=== PATIENT | male | born 1955 | race Caucasian/White ===

== ENCOUNTER 2024-03-04 08:09 | Outpatient (CLI) | payer MEDICARE, SELFPAY ==
[2024-03-06 08:54] LABS: Pancreatic Elastase, Fecal 670 (>200)
== END 2024-03-04 23:59 | disposition home or self-care (01) ==
LOC: LAB 08:11
PROVIDERS: PCP Family Medicine; Visit Provider Internal Medicine Gastroenterology
DX: R19.4 Change in bowel habit (principal); R14.0 Abdominal distension (gaseous); R10.84 Generalized abdominal pain
CPT/HCPCS: 82656

== ENCOUNTER 2024-03-15 09:14 | Outpatient (CLI) | payer MEDICARE, SELFPAY ==
--- NOTE | 2024-03-15 09:27 | CT_ITS ---
FINAL REPORT TECHNIQUE: Axial CT images of the abdomen and pelvis were obtained before and after the administration of IV contrast. This study was performed with techniques to keep radiation doses as low as reasonably achievable (ALARA). Individualized dose reduction techniques using automated exposure control or adjustment of mA and/or kV according to the patient's size were employed. CLINICAL HISTORY: .HERNIA COMPARISON: None FINDINGS: Abdomen: There is a 2 mm nodule in the left lower lobe, best seen on image #6, most likely benign. There is a 3 mm right lower lobe nodule, best seen on image #11, also most likely benign. The heart is normal in size. There is mild fatty infiltration of the liver without evidence of biliary ductal dilatation. . The spleen is unremarkable. No adrenal masses present. The pancreas has an unremarkable appearance. There are several nonobstructing right renal stones present measuring up to 3 mm in size each. The aorta is normal in caliber. Mild vascular calcifications are present. There is no free fluid or adenopathy. No mass or abnormal fluid collection is seen. Precontrast images demonstrate no evidence of nephrolithiasis Pelvis: The appendix is not well visualized. Bilateral hip arthroplasties are noted. There is dystrophic calcification anterior to the left hip. Bilateral pars defects are noted in the lumbar spine, with L5-S1 grade 1 spondylolisthesis and severe bilateral neural foraminal narrowing. Possible postoperative change is present at the level of the umbilicus, but no cristofer hernia is identified. There is a left inguinal hernia present containing fat. The urinary bladder is unremarkable. No inflammatory process is seen. There is no evidence of mass or adenopathy. There is no evidence of bowel obstruction. IMPRESSION: Several nonobstructing less than 3 mm in size right renal stones are noted. Lumbar degenerative change is noted. No acute intra-abdominal or intrapelvic abnormality is identified. Reviewed, Interpreted and Dictated by Ángel Cochran III, MD Transcribed by Demetrice Doty Authenticated and [facility]
[2024-03-15 09:47] LABS: Blood Urea Nitrogen 11 mg/dl (9-20); Estimated Glomerular Filt Rate 96 ml/min (>60); GFR (African American) 116 ML/MIN (>60)
[2024-03-15] MEDS: IOPAMIDOL-370 (76%);100ML BOTTLE 75 ML IV (10:31)
[2024-03-15] MEDS: SODIUM CHLORIDE 0.9% 10ML SYR (RAD ONLY) 10 ML IV (10:31)
== END 2024-03-15 23:59 | disposition home or self-care (01) ==
PROVIDERS: PCP Family Medicine; Visit Provider Internal Medicine Gastroenterology
DX: R10.84 Generalized abdominal pain (principal); R14.0 Abdominal distension (gaseous); R19.4 Change in bowel habit
CPT/HCPCS: 36415; 74178; 82565; 84520; Q9967

== ENCOUNTER 2024-03-19 13:28 | Outpatient (CLI) | payer MEDICARE, SELFPAY ==
--- OUTSIDE RECORDS SUMMARY | 2024-03-19 13:30 | XMS_ITS | Clinical Summary ---
Author Organization Healthcare Address [address] [place] [address] Care Team Providers Care Broomcorn Scraper Name Role Phone Dahlia Crane MD Primary Care Provider [phone] Allergies Active Allergy Reactions Criticality Noted Date Comments Metoclopramide Other - please docum ent in the comment field Low 04/11/2012 made me nervous Medications olmesartan (Benicar) 20 MG tabletIndications: Essential (primary) hypertension Take 1 tablet (20 mg) by mouth 1 (one) time each day. 09/06/19 24 Active Additional Information Patient not taking.Reported on 10/26/2023 omeprazole (PriLOSEC) [address] capsuleIndications :Gastroesophageal reflux disease without esophagitis Take 1 capsule (40 mg) by mouth 1 (one) time each day. Do not crush or chew. 90 capsule 11/09/19 24 Active FLUoxetine (PROzac) 20 MG capsuleIndications :Major depressive disorder, recurrent, moderate (CMS/HCC) Take 1 capsule (20 mg) by mouth 1 (one) time each day. 90 capsule 1 11/09/19 24 Active atorvastatin (Lipitor) 10 MG tabletIndications: Hyperlipidemia, unspecified hyperlipidemia type Take 1 tablet (10 mg) by mouth 1 (one) time each day. 90 tablet 3 11/20/19 24 025 Active Active Problems Problem Noted Date Diagnosed Date Essential (primary) hypertension 10/02/2020 Anxiety, generalized 07/08/2020 Osteoarthritis of right hip 03/02/2020 Obesity (BMI 30-39.9) 03/05/2018 Arthritis 07/26/2014 Osteoarthritis of knee 07/26/2014 Encounters Date Type Department Care Team Description 02/27/2024 Telephone [facility] [address] [place] [address] Dahlia Crane MD HCN Clinical Concern/Question 02/16/2024 7:40 AM EDT Office Visit [facility] [address] [place] [address] Kaylan Kee, RIGHT OF WAY SUPERVISOR, DNP Generalized abdominal cramping; Diarrhea, unspecified type; Flank pain 02/16/2024 Travel 02/02/2024 Refill [facility] [address] [place] [address] Dahlia Crane MD Gastroesophageal reflux disease without esophagitis 02/01/2024 Telephone [facility] [address] [place] [address] Tequila Kay, PharmD from Last 3 Months Immunizations Name Administration Dates Next Due Hep A, Adult 02/06/2018 Influenza, Unspecified 02/06/2018 Influenza, injectable, quadrivalent 12/31/2019 Influenza, injectable, quadrivalent, preservativ e free 02/15/2017,02/04/2016 Pneumococcal Conjugate PCV 13 12/10/2019 Zoster, Recombinant 04/28/2020 Social History Tobacco Use Types Packs/Day Years Used Date Smoking Tobacco: Never Smokeless Tobacco: Never Humiliation, Afraid, Rape, and Kick questionnair e Answer Date Recorded Within the last year, have y ou been afraid of your partner or ex-partner? No 10/26/2023 Within the last year, have y ou been humiliated or emotionally abused in other ways by your partner or ex-partner? No Within the last year, have y ou been kicked, hit, slapped, or otherwise physically hurt by your partner or ex-partner? No 10/26/2023 Within the last year, have y ou been raped or forced to have any kind of sexual activity by your partner or ex-partner? No 10/26/2023 Social Connection and Isolat ion Panel [NHANES] Answer Date Recorded In a typical week, how many times do you talk on the phone with family, friends, or neighbors? More than three times a week 10/26/2023 How often do you get togethe r with friends or relatives? Twice a week 10/26/2023 How often do you attend chur ch or sikh services? More than 4 times per year 10/26/2023 Do you belong to any clubs o r organizations such as catholic groups, unions, fraternal or athletic groups, or school groups? No 10/26/2023 How often do you attend meet ings of the clubs or organizations you belong to? Never 10/26/2023 Are you , , di vorced, , never , or living with a partner? Never 10/26/2023 AUDIT-C Answer Date Recorded Q1: How often do you have a drink containing alc ohol? Monthly or less 10/26/2023 Q2: How many drinks containi ng alcohol do you have on a typical day when you are drinking? 1 or 2 10/26/2023 Q3: How often do you have si x or more drinks on one occasion? Never 10/26/2023 PHQ-2 Answer Date Recorded Patient Health Questionnaire-2 Score 1 02/16/2024 [facility] - Occupational Stress Questionnaire Answer Date Recorded Do you feel stress - tense, restless, nervous, or anxious, or unable to sleep at night because your mind is troubled all the time - these days? Not at all 10/26/2023 Exercise Vital Sign Answer Date Recorde d On average, how many days pe r week do you engage in moderate to strenuous exercise (like a brisk walk)? 4 days 10/26/2023 On average, how many minutes do you engage in exercise at this level? 30 min 10/26/2023 Hunger Vital Sign Answer Date Recorded Within the past 12 months, y ou worried that your food would run out before you got the money to buy more. Never true 10/26/19 24 Within the past 12 months, t he food you bought just didn't last and you didn't have money to get more. Never true 10/26/2023 PRAPARE - Transportation Answer Date Re corded In the past 12 months, has l ack of transportation kept you from medical appointments or from getting medications? No 09/30 In the past 12 months, has l ack of transportation kept you from meetings, work, or from getting things needed for daily living? No 10/26/2023 Housing Stability Vital Sign Answer Fredy e Recorded In the last 12 months, was t here a time when you were not able to pay the mortgage or rent on time? No 10/26/2023 In the last 12 months, how many places have you lived? 1 10/26/2023 In the last 12 months, was t here a time when you did not have a steady place to sleep or slept in a long term (including now)? No 10/26/2023 PHQ-9 Answer Date Recorded Patient Health Questionnaire-9 Score 16 08/09/2022 Utilities Answer Date Recorded In the past 12 months has th e electric, gas, oil, or water company threatened to shut off services in your home? No 10/26/2023 PHQ-2A Answer Date Recorded Patient Health Questionnaire-2 Score 0 04/06/2023 Sex and Gender Information Value Date Recorded Sex Assigned at Not on file Legal Sex Male 7:49 PM EDT Gender Identity Not on file Sexual Orientation Not on file Last Filed Vital Signs Vital Sign Reading Time Taken Comments Blood Pressure 130/80 02/16/2024 7:43 AM EDT Pulse 79 02/16/2024 7:43 AM EDT Temperature 36.6 ??C (97.9 ??F) 02/16/2024 7:43 AM ED T Respiratory Rate 16 02/16/2024 7:43 AM EDT Oxygen Saturation 98% 02/16/2024 7:43 AM EDT Inhaled Oxygen Concentration - - Weight 102 kg (225 lb 3.2 oz) 02/16/2024 7:43 AM EDT Height 171.5 cm (5' 7.5 ) 02/16/2024 7:43 AM EDT Body Mass Index 34.75 02/16/2024 7:43 AM EDT Plan of Treatment Health Maintenance Due Date Last Done Comments [facility]-/Child/Adol SDOH Screenings 1955 Diabetes: Dental Exam 02/23/1964 CT Colonography 1999 FIT-DNA 1999 FIT 1999 FOBT 1999 Sigmoidoscopy 1999 [id number] Vaccine ( season) 2023 02/10/2023, 02/09/2022, 10/22/2021, Additional history exists [facility]- SDOH Screenings 04/26/2024 [facility]-Adult SDOH Screenings 04/26/2024 10/26/2023 [facility]-Diabetes: Hemoglobin A1C 05/19/2024, 12/08/2022, 08/09/2022, Additional history exists [facility]-Medicare Annual Wellness (AWV) 11/08/2024 11/09/2023 [facility]-Depression Screening 02/15/2025 02/16/2024, 07/30 [facility]-DTaP,Tdap,and Td Vaccines (2 - Td or Tdap) 06/03/2028 06/03/2018 [facility]-RSV Vaccine: 60+ Years or (1 - 1-dose 75+ series) 2029 Colonoscopy 01/19/2033 01/19/2023, 11/30, 12/06/2012 [facility]-Colorectal Cancer Screening 01/19/2033 [facility]-Hepatitis C Screening Completed 03/06/2018 [facility]-Hepatitis A Vaccines Aged Out 02/13/2019, 12/2017 No longer eligible based on patient's age to complete this topic [facility]-Zoster Vaccines Completed 04/28/2020, [facility]-Pneumococcal Vaccine: 65+ Years Completed 01/29/2021, 12/10/2019 [facility]-Obesity Intervention Completed 024, 11/09/2023, 11/09/2023, Additional history exists [facility]-Influenza Vaccine Completed 02/29/2024 , 02/03/2023, 02/09/2022, Additional history exists [facility]-HIB Vaccines Aged Out No longer e ligible based on patient's age to complete this topic [facility]-HPV Vaccines Aged Out No longer e ligible based on patient's age to complete this topic [facility]-IPV Vaccines Aged Out No longer e ligible based on patient's age to complete this topic [facility]-Rotavirus Vaccines Aged Out No lo nger eligible based on patient's age to complete this topic Procedures Procedure Name Priority Date/Time Associated Diagnosis Comments AMYLASE, PLASMA Routine 02/16/2024 8:38 AM EDT Generalized abdominal cramping Diarrhea, unspecified type LIPASE, PLASMA Routine 02/16/2024 8:38 AM EDT Generalized abdominal cramping Diarrhea, unspecified type CBC WITH AUTO DIFFERENTIAL Routine 02/16/2024 8:38 AM EDT Generalized abdominal cramping Diarrhea, unspecified type COMPREHENSIVE METABOLIC PANEL, PLASMA Routine 02/16/2024 8:38 AM EDT Generalized abdominal cramping Diarrhea, unspecified type POCT URINALYSIS DIPSTICK Routine 02/16/2024 8:26 AM EDT Flank pain HEMOGLOBIN A1C Routine 11/20/2023 11:29 AM EDT Type 2 diabetes mellitus with hyperglycemia, unspecified whether terminal block assembler insulin use ([facility]) COLONOSCOPY EXTERNAL RESULT 01/19/2023 HEPATITIS C ANTIBODY W/REFLEX TO HCV QUANT PCR Routine 03/06/2018 8:41 AM EST from Last 3 Months or Most Recently Relevant to Health Maintenance Results * (ABNORMAL) CBC and Differential (02/16/2024 8:38 AM EDT) WBC Count 7.36 3.70 - 10.30 10*3/uL LAB HEMATOLOGY METHOD 02/16/2024 1:24 PM EDT [facility] RBC Count 4.86 4.60 - 6.10 10*6/uL LAB HEMATOLOGY METHOD 02/16/2024 1:24 PM EDT [facility] HGB 15.8 13.7 - 17.5 g/dL LAB HEMATOLOGY METHOD 02/16/2024 1:24 PM EDT [facility] HCT 47.0 40.0 - 51.0 % LAB HEMATOLOGY METHOD 02/16/2024 1:24 PM EDT [facility] Platelet Count 212 155 - 369 10*3/uL LAB HEMATOLOGY METHOD 02/16/2024 1:24 PM EDT [facility] MCV 97 79 - 98 fL LAB HEMATOLOGY METHOD 02/16/2024 1:24 PM EDT [facility] MCH 32.5(H) 26.0 - 32.0 pg LAB HEMATOLOGY METHOD 02/16/2024 1:24 PM EDT [facility] MCHC 33.6 30.7 - 35.5 g/dL LAB HEMATOLOGY METHOD 02/16/2024 1:24 PM EDT [facility] RDW 13.6 11.5 - 14.5 % LAB HEMATOLOGY METHOD 02/16/2024 1:24 PM EDT [facility] MPV 9.7 8.8 - 12.5 fL LAB HEMATOLOGY METHOD 02/16/2024 1:24 PM EDT [facility] nRBC 0.0 <=0.0 per 100 WBCs LAB HEMATOLOGY METHOD 02/16/2024 1:24 PM EDT [facility] Differential Type Automated LAB HEMATOLOGY METHOD 02/16/2024 1:24 PM EDT [facility] Neutrophils % 42 % LAB HEMATOLOGY METHOD 02/16/2024 1:24 PM EDT [facility] Lymphocytes % 37 % LAB HEMATOLOGY METHOD 02/16/2024 1:24 PM EDT [facility] Monocytes % 15 % LAB HEMATOLOGY METHOD 02/16/2024 1:24 PM EDT [facility] Eosinophils % 5 % LAB HEMATOLOGY METHOD 02/16/2024 1:24 PM EDT [facility] Basophils % 1 % LAB HEMATOLOGY METHOD 02/16/2024 1:24 PM EDT [facility] Immature Granulocytes % 0 % LAB HEMATOLOGY METHOD 02/16/2024 1:24 PM EDT [facility] Neutrophils Absolute 3.06 1.60 - 6.10 10*3/uL LAB HEMATOLOGY METHOD 02/16/2024 1:24 PM EDT [facility] Lymphocytes Absolute 2.75 1.20 - 3.90 10*3/uL LAB HEMATOLOGY METHOD 02/16/2024 1:24 PM EDT [facility] Monocytes Absolute 1.07(H) 0.30 - 0.90 10*3/uL LAB HEMATOLOGY METHOD 02/16/2024 1:24 PM EDT [facility] Eosinophils Absolute 0.37 0.00 - 0.50 10*3/uL LAB HEMATOLOGY METHOD 02/16/2024 1:24 PM EDT [facility] Basophils Absolute 0.09 0.00 - 0.10 10*3/uL LAB HEMATOLOGY METHOD 02/16/2024 1:24 PM EDT [facility] Immature Granulocytes Absolute 0.02 0.00 - 0.06 10*3/uL LAB HEMATOLOGY METHOD 02/16/2024 1:24 PM EDT [facility] Blood Venous blood specimen / Unknown Venipuncture / Unknown 02/16/2024 8:38 AM EDT 02/16/2024 8:38 AM EDT Narrative [facility] - 02/16/2024 1:24 PM EDT Therapeutic decision making should be based on absolute values, rather than percentages. us Kaylan Kee APRN, DNP LAB BLOOD ORDERABLES Final Result Performing Organization Address City/[facility]/ZIP Co de Phone Number [facility] [address] [place] [address] * Lipase, Plasma (02/16/2024 8:38 AM EDT) Lipase, Plasma 57 19 - 63 U/L 02/16/2024 1:34 PM EDT [facility] Blood Venous blood specimen / Unknown Venipuncture / Unknown 02/16/2024 8:38 AM EDT 02/16/2024 8:38 AM EDT us Kaylan Kee APRN, DNP LAB BLOOD ORDERABLES Final Result [facility] [address] [place] [address] * Amylase (02/16/2024 8:38 AM EDT) Amylase 86 27 - 114 U/L 02/16/2024 1:34 PM EDT [facility] Blood Venous blood specimen / Unknown Venipuncture / Unknown 02/16/2024 8:38 AM EDT 02/16/2024 8:38 AM EDT us Kaylan Sonia Kee RIGHT OF WAY SUPERVISOR, DNP LAB BLOOD ORDERABLES Final Result [facility] [address] [place] [address] * (ABNORMAL) Comprehensive Metabolic Panel, Plasma (02/16/2024 8:38 AM EDT) Glucose, Plasma 120(H) 74 - 99 mg/dL 02/16/2024 1:34 PM EDT [facility] BUN, Plasma 10 8 - 23 mg/dL 02/16/2024 1:34 PM EDT [facility] Creatinine, Plasma 0.94 0.70 - 1.20 mg/dL 02/16/2024 1:34 PM EDT [facility] BUN/Creatinine Ratio 11 02/16/2024 1:34 PM EDT [facility] Sodium, Plasma 139 136 - 145 mmol/L 02/16/2024 1:34 PM EDT [facility] Potassium, Plasma 4.3 3.6 - 4.9 mmol/L 02/16/2024 1:34 PM EDT [facility] Chloride, Plasma 104 97 - 107 mmol/L 02/16/2024 1:34 PM EDT [facility] CO2, Plasma 23 22 - 29 mmol/L 02/16/2024 1:34 PM EDT [facility] Anion Gap 12 6 - 16 mmol/L 02/16/2024 1:34 PM EDT [facility] Total Calcium, Plasma 9.4 8.9 - 10.2 mg/dL 02/16/2024 1:34 PM EDT [facility] Total Protein 7.4 6.3 - 7.9 g/dL 02/16/2024 1:34 PM EDT [facility] Albumin, Plasma 4.4 3.5 - 5.2 g/dL 02/16/2024 1:34 PM EDT [facility] AST, Plasma 36 10 - 50 U/L 02/16/2024 1:34 PM EDT [facility] ALT, Plasma 31 10 - 50 U/L 02/16/2024 1:34 PM EDT [facility] Alkaline Phosphatase, Plasma 58 40 - 115 U/L 02/16/2024 1:34 PM EDT [facility] Total Bilirubin, Plasma 0.4 0.2 - 1.1 mg/dL 02/16/2024 1:34 PM EDT [facility] eGFRcr 87.8 mL/min/1.7 3m*2 02/16/2024 1:34 PM EDT [facility] Comment:Reported eGFRcr in m L/min/1.73m2 is based the CKD-EPI 2020 equation that does not use a race coefficient. Blood Venous blood specimen / Unknown Venipuncture / Unknown 02/16/2024 8:38 AM EDT 02/16/2024 8:38 AM EDT us Kaylan Kee APRN, DNP LAB BLOOD ORDERABLES Final Result [facility] [address] [place] [address] * POCT Urinalysis dipstick (02/16/2024 8:26 AM EDT) POCT Urine Color Dark Yellow [facility] POCT Urine Clarity Clear [facility] POCT Glucose Urine Negative Negative mg/dL [facility] POCT Bilirubin, Urine Negative Negative [facility] POCT Ketones, Urine Negative Negative mg/dL [facility] POCT Specific [place], Urine >=1.030 [facility] POCT Blood, Urine Negative Negative [facility] POCT pH, Urine 6.0 5.0 to 8.0 [facility] POCT Protein, Urine Negative Negative mg/dL [facility] POCT Urobilinogen, Urine 0.2 0.2, 1 E.U./dL [facility] POCT Nitrite, Urine Negative Negative [facility] POCT Leukocyte Esterase, Urine Negative Negative [facility] Test Strip Lot Number [id number] [facility] Test Strip Lot Expiration 11/27/2024 [facility] Urine Urine specimen obtained by clean catch procedure / Unknown 02/16/2024 8:26 AM EDT us Kaylan Kee APRN, DNP POINT OF CARE TEST EN TER/EDIT ORDERABLES Final Result Performing Organization Address City/State/[facility] Co de Phone Number [facility] [address] [place] [address] * Hemoglobin A1c (11/20/2023 11:29 AM EDT) Hemoglobin A1c 5.5 <5.7 % 11/20/2023 7:36 PM EDT [facility] Blood Venous blood specimen / Unknown Venipuncture / Unknown 11/20/2023 11:29 AM EDT 11/20/2023 11:29 AM EDT Narrative [facility] - 11/20/2023 7:36 PM EDT HA1C Interpretive Data: Diagnosis of Diabetes: Diabetic > or = 6.5% Pre-diabetic 5.7 to 6.4% Non-diabetic < or = 5.6% Glycemic Targets for Type I and Type II Diabetics: Non- Adults <7.0% Adults <6.0% Children and Adolescents <7.5% Source: ??[place] [employer]. Standards of medical care in diabetes,2017. Diabetes Care.2017:40 (suppl 1):S1-S135. HbA1c assay performed by an ion-exchange chromatography method that is certified traceable to the [facility]. us Dahlia Crane MD LAB BLOOD ORDERABLES Final Re sult [facility] [address] [place] [address] * COLONOSCOPY EXTERNAL RESULT (01/19/2023) Anatomical Region Laterality Modality Endoscopy Narrative 01/19/2023 Ordered by an unspecified provider. us External Provider GI PROCEDURE ORDERABLES Final Result * Hepatitis C Antibody (03/06/2018 8:41 AM EST) Hepatitis C Antibody NEGATIVE Reference Range: Negative [facility] 03/06/2018 8:41 AM EST 03/06/2018 12:39 PM EST us Dahlia Crane MD LAB BLOOD ORDERABLES Final Re sult Performing Organization Address City/[facility]/ZIP Co de Phone Number [facility] from Last 3 Months or Most Recently Relevant to Health Maintenance Insurance [employer] MEDICARE Care Teams Broomcorn Scraper Relationship Specialty Start Date End Date Dahlia Crane MD [address] [place] [address] PCP - General 09/11/20
--- OUTSIDE RECORDS SUMMARY | 2024-03-19 13:30 | XMS_ITS | Encounter Summary ---
Author Organization [facility] Address [address] [place] [address] Care Team Providers Care Progressive Assembler And Fitter Name Role Phone Dahlia Crane MD Primary Care Provider [phone] Reason for Visit * Reason Onset Date Comments HCN Clinical Concern/Question 02/27/2024 Encounter Details Date Type Department Care Team (Late st Contact Info) Description 02/27/2024 Telephone [facility] [address] [place] [address] Dahlia Crane MD [address] [place] [address] HCN Clinical Concern/Question Social History Tobacco Use Types Packs/Day Years [...] often do you attend chur ch or buddhist services? More than 4 times per year 10/26/2023 Do you belong to any clubs o r organizations such as scientology groups, unions, fraternal or athletic groups, or [...] Recorded Patient Health Questionnaire-2 Score 1 02/16/2024 [facility] - Occupational Stress Questionnaire Answer Date Recorded [...] place to sleep or slept in a mcfp (including now)? No 10/26/2023 PHQ-9 Answer Date [...] on file Sexual Orientation Not on file documented as of this encounter Miscellaneous Notes * Telephone Encounter - Tierra Leo - 02/27/2024 12:43 PM EDT Per Danita from [facility], they did not receive this request. Refaxed and patient notified. * Telephone Encounter - Tierra Leo - 02/27/2024 10:59 AM EDT Faxed to [facility] on 02/15 - sent email to check on this * Telephone Encounter - Kaylan Kee APRN, DNP - 02/27/2024 10:33 AM EDT I spoke with patient and notified of results. Would like to get stool sample but he is following upwith Dr. Mishra. He has not heard about CT scan. Can we check with someone about why his CT scan has not been scheduled. Thank you! * Telephone Encounter - Charlette Givens - 02/27/2024 8:31 AM EDT Clinical Concern/Question Reason for Call: Pt requesting a call to discuss labs from 02/15; also states they have not heard anything yet about scheduling the CT scan; Please call to advise Best contact number: [phone] (home) Optimal time of day to reach caller: ANYTIME Additional comments/information from caller: None Note: Please do not reply to this message. Follow-up communication and further actions as a result of this message need to be communicated with the patient directly, if the patient is not active onMyChart. If the patient is active on MyChart, they will receive notification of the communication/outcome via [employer]. documented in this encounter Plan of Treatment Not on file documented as of this encounter Visit Diagnoses Not on filedocumented in this encounter Additional Health Concerns Assessment Noted Time PHQ-9 Depression Total Score: 16 08/09/ 023 9:41 AM EDT A fall risk assessment has been complete d for the patient 02/16/2024 7:44 AM EDT A Body Mass Index follow-up plan has been documented for the patient 02/16/2024 8:51 AM EDT documented as of this encounter Care Teams Progressive Assembler And Fitter Relationship Specialty Start Date End Date Dahlia Crane MD [address] [place] [id number] PCP - General 09/11/20 documented as of this encounter
--- OUTSIDE RECORDS SUMMARY | 2024-03-19 13:30 | XMS_ITS | Encounter Summary ---
Author Organization Healthcare Address [address] [place] [address] Care Team Providers Care Hogshead Roller Name Role Phone Dahlia Crane MD Primary Care Provider [phone] Encounter Details Date Type Department Care Team (Latest Contact Info) Description 02/16/2024 Travel Social History Tobacco Use Types Packs/Day Years [...] often do you attend chur ch or tenriism services? More than 4 times per year 10/26/2023 Do you belong to any clubs o r organizations such as holiness groups, unions, fraternal or athletic groups, or [...] Recorded Patient Health Questionnaire-2 Score 1 02/16/2024 [facility] - Occupational Stress Questionnaire Answer Date Recorded [...] place to sleep or slept in a care home (including now)? No 10/26/2023 PHQ-9 Answer Date [...] on file documented as of this encounter Plan of Treatment Not on file documented as of this encounter Visit Diagnoses Not on filedocumented in this encounter Additional Health Concerns Assessment Noted Time PHQ-9 Depression Total Score: 16 023 9:41 AM EDT A fall risk assessment has been complete d for the patient 02/16/2024 7:44 AM EDT A Body Mass Index follow-up plan has been documented for the patient 02/16/2024 8:51 AM EDT documented as of this encounter Care Teams Hogshead Roller Relationship Specialty Start Date End Date Dahlia Crane MD [address] [place] [address] PCP - General 09/11/20 documented as of this encounter
--- OUTSIDE RECORDS SUMMARY | 2024-03-19 13:30 | XMS_ITS | Encounter Summary ---
Author Organization [facility] Address [address] [place] [address] Care Team Providers Care Radio Talk Show Host Name Role Phone Dahlia Crane MD Primary Care Provider [phone] Reason for Referral * Imaging (Routine) - Authorized Specialty Diagnoses / Procedures Referred By Marley mcdowell Referred To Contact Diagnoses Generalized abdominal cramping Diarrhea, unspecified type Flank pain Procedures CT Abdomen Pelvis w IV Contrast Kaylan [place]ee APRN, [place] [address] Phone: tel: fax: Referral ID Status Reason Start Date Expiration Date V isits Requested Visits Authorized [id number] Authorized 02/16/2024 08/17/2025 1 1 * Consultation (Routine) - Authorized Specialty Diagnoses / Procedures Referred By Marley mcdowell Referred To Contact Gastroenterology Diagnoses Generalized abdominal cramping Diarrhea, unspecified type Kaylan Kee APRN, [place] [address] Phone: tel: fax: Referral ID Status Reason Start Date Expiration Date Visits Requested Visits Authorized [id number] Authorized Specialty Services Required 08/17/2025 1 1 Reason for Visit * Reason Comments Diarrhea Abdominal Pain Encounter Details Date Type Department Care Team (Late st Contact Info) Description 02/16/2024 7:40 AM EDT Office Visit [facility] Medicine [address] [place] [address] Kaylan Kee, NATURALIST, DNP [address] [address] Generalized abdominal cramping; Diarrhea, unspecified type; Flank pain Social History Tobacco Use Types Packs/Day Years [...] week 10/26/2023 How often do you attend [facility] or baptism services? More than 4 times per year 10/26/2023 Do you belong to any clubs o r organizations such as anabaptism groups, unions, fraternal or athletic groups, or [...] Recorded Patient Health Questionnaire-2 Score 1 02/16/2024 [facility] Questionnaire Answer Date [...] on file documented as of this encounter Last Filed Vital Signs Vital Sign Reading [...] Mass Index 34.75 02/16/2024 7:43 AM EDT documented in this encounter Miscellaneous Notes * Progress Notes - Kaylan Kee, NATURALIST, DNP - 02/16/2024 7:40 AM EDT Subjective Harley Tovar Diarrhea Associated symptoms include abdominal pain. Abdominal Pain Associated symptoms include diarrhea. Mr. Tovar presents for abdominal discomfort. Patient says that he has diarrhea off and on for 6 months. Patient has been on two to three different medications for the diarrhea. Patient says if he drinks any alcohol that seems to escalate that. Patient says the pain has gone into his back. Patient says he had a hernia repaired in august. Patient says that he had a colonoscopy performed. Patient says the diarrhea started before the colonoscopy. Patient says he has had a lot of heartburn recently. Patient denies any blood in his stool. Patient says he still has his gallbladder. Patient says he doesn't know if certain foods make it worse. Patient has not had a fever. Patient endorses some nausea here and there. Patient denies any burning with urination. Past Medical History: Diagnosis Date Lateral epicondylitis Status post knee surgery No family history on file. Past Surgical History: Procedure Laterality Date COLONOSCOPY N/A TOTAL HIP ARTHROPLASTY Bilateral TOTAL KNEE ARTHROPLASTY Left Social History Socioeconomic History Marital status: Spouse name: Not on file Number of children: Not on file Years of education: Not on file Highest education level: Not on file Occupational History Not on file Tobacco Use Smoking status: Never Smokeless tobacco: Never Substance and Sexual Activity Alcohol use: Not on file Drug use: Not on file Sexual activity: Not on file Other Topics Concern Not on file Social History Narrative Not on file Social Determinants of Health Financial Resource Strain: Not on file Food Insecurity: No Food Insecurity (10/26/2023) Hunger Vital Sign Worried About Running Out of Food in the Last Year: Never true Ran Out of Food in the Last Year: Never true Transportation Needs: No Transportation Needs (10/26/2023) PRAPARE - Transportation Lack of Transportation (Medical): No Lack of Transportation (Non-Medical): No Physical Activity: Insufficiently Active (10/26/2023) Exercise Vital Sign Days of Exercise per Week: 4 days Minutes of Exercise per Session: 30 min Stress: No Stress Concern Present (10/26/2023) [place] [facility] - Occupational Stress Questionnaire Feeling of Stress : Not at all Social Connections: Moderately Isolated (10/26/2023) Social Connection and Isolation Panel [NHANES] Frequency of Communication with Friends and Family: More than three times a week Frequency of Social Gatherings with Friends and Family: Twice a week Attends [employer] Services: More than 4 times per year Active Member of Clubs or Organizations: No Attends Club or Organization Meetings: Never Marital Status: Never Intimate Partner Violence: Not At Risk (10/26/2023) Humiliation, Afraid, Rape, and Kick questionnaire Fear of Current or Ex-Partner: No Emotionally Abused: No Physically Abused: No Sexually Abused: No Housing Stability: Low Risk (10/26/2023) Housing Stability Vital Sign Unable to Pay for Housing in the Last Year: No Number of Places Lived in the Last Year: 1 Unstable Housing in the Last Year: No Current Outpatient Medications on File Prior to Visit Medication Sig Dispense Refill atorvastatin (Lipitor) 10 MG tablet Take 1 tablet (10 mg) by mouth 1 (one) time each day. 90 tablet3 FLUoxetine (PROzac) 20 MG capsule Take 1 capsule (20 mg) by mouth 1 (one) time each day. 90 capsule1 omeprazole (PriLOSEC) [address] capsule Take 1 capsule (40 mg) by mouth 1 (one) time each day. Do not crush or chew. 90 capsule 0 olmesartan (Benicar) 20 MG tablet Take 1 tablet (20 mg) by mouth 1 (one) time each day. (Patient not taking: Reported on 10/26/2023) No current facility-administered medications on file prior to visit. Allergies Allergen Reactions Metoclopramide Other - please document in the comment field made me nervous Health Maintenance Due Topic Date Due Diabetes: Dental Exam Never done [facility]Y-RSV Vaccine: 60+ Years or (1 - 1-dose 60+ series) Never done [facility]Y-Influenza Vaccine (1) 12/31/2023 BRO-ELIIE-53 Vaccine ( season) 2023 The following portions of the patient's chart were reviewed in this encounter and updated as appropriate: past medical history, surgical history, family history, tobacco history, allergies, and medications Over the last 2 weeks, how often have you been bothered by any of the following problems? Little interest or pleasure in doing things: Not at all Feeling down, depressed, or hopeless: Several days A 14-point review of systems was completed with pertinent positives and negatives outlined above. Objective Vitals: 02/16/24 0743 BP: 130/80 Pulse: 79 Resp: 16 Temp: 36.6 ??C (97.9 ??F) SpO2: 98% Physical Exam Constitutional: Appearance: Normal appearance. Cardiovascular: Rate and Rhythm: Normal rate and regular rhythm. Pulses: Normal pulses. Heart sounds: Normal heart sounds. Pulmonary: Effort: Pulmonary effort is normal. Breath sounds: Normal breath sounds. Abdominal: General: Bowel sounds are normal. Palpations: There is no mass. Tenderness: There is abdominal tenderness (specifically and right upper and left upper and lower quadrant). There is no guarding or rebound. Skin: General: Skin is warm and dry. Neurological: Mental Status: He is alert and oriented to person, place, and time. Psychiatric: Mood and Affect: Mood normal. Behavior: Behavior normal. Thought Content: Thought content normal. Judgment: Judgment normal. Assessment/Plan 1. Generalized abdominal cramping - Ambulatory referral to Gastroenterology; Future - Comprehensive Metabolic Panel, Plasma - CBC and Differential - Comprehensive GI Panel by PCR - Clostridiodes (Clostridium) difficile PCR - Lipase, Plasma - Amylase - CT Abdomen Pelvis w IV Contrast; Future 2. Diarrhea, unspecified type - Ambulatory referral to Gastroenterology; Future - Comprehensive Metabolic Panel, Plasma - CBC and Differential - Comprehensive GI Panel by PCR - Clostridiodes (Clostridium) difficile PCR - Lipase, Plasma - Amylase - CT Abdomen Pelvis w IV Contrast; Future 3. Flank pain - POCT Urinalysis dipstick - CT Abdomen Pelvis w IV Contrast; Future Will order labs to further evaluate diarrhea as well as stool sample. Patient instructed on stool sample. Will order CT of abdomen since it has been a year since the last one and symptoms were not present at time of last CT scan. Patient has tried a few different medications with not much relief will refer to GI. Patient encourage to have adequate hydration. Avoid foods high in sugar. Advised to let us know if he develops blood in stool or if abdominal pain worsens. Note to patient: The Cures Act makes medical notes like these available to patients inthe interest of transparency. However, be advised this is a medical document. It is intended as peer to peer communication. It is written in medical language and may contain abbreviations or verbiagethat are unfamiliar. It may appear blunt or direct. Medical documents are intended to carry relevant information, facts as evident, and the clinical opinion of the practitioner. Kaylan Kee APRN, DNP documented in this encounter Plan of Treatment Pending Results Name Type Priority Associated Diagnoses Date /Time Comprehensive GI Panel by PCR Microbiology Routine Generalized abdominal cramping Diarrhea, unspecified type 02/16/2024 8:38 AM EDT Scheduled Orders Name Type Priority Associated Diagnoses Orde r Schedule CT Abdomen Pelvis w IV Contrast Imaging Routine Generalized abdominal cramping Diarrhea, unspecified type Flank pain Expected: 02/16/2024 (Approximate), Expires: 08/18/2025 Scheduled Referrals Name Type Priority Associated Diagnoses Order Schedule Ambulatory referral to Gastroenterology Outpatient Referral Routine Generalized abdominal cramping Diarrhea, unspecified type 1 Occurrences starting 02/16/2024 until 08/16/2025 documented as of this encounter Procedures Procedure Name Priority Date/Time Associated Diagnosis Comments CBC WITH AUTO DIFFERENTIAL Routine 02/16/2024 8:38 AM EDT Generalized abdominal cramping Diarrhea, unspecified type LIPASE, PLASMA Routine 02/16/2024 8:38 AM EDT Generalized abdominal cramping Diarrhea, unspecified type AMYLASE, PLASMA Routine 02/16/2024 8:38 AM EDT Generalized abdominal cramping Diarrhea, unspecified type COMPREHENSIVE METABOLIC PANEL, PLASMA Routine 02/16/2024 8:38 AM EDT Generalized abdominal cramping Diarrhea, unspecified type POCT URINALYSIS DIPSTICK Routine 02/16/2024 8:26 AM EDT Flank pain documented in this encounter Results * Amylase (02/16/2024 8:38 AM EDT) Amylase 86 27 - 114 U/L 02/16/2024 1:34 PM EDT [facility] Blood Venous blood specimen / Unknown Venipuncture / Unknown 02/16/2024 8:38 AM EDT 02/16/2024 8:38 AM EDT Kaylan Kee APRN, KYLEE LAB BLOOD ORDERABLES Final Result Performing Organization Address City/[facility]/ZIP Co de Phone Number [facility] [address] [place] [address] * Lipase, Plasma (02/16/2024 8:38 AM EDT) Lipase, Plasma 57 19 - 63 U/L 02/16/2024 1:34 PM EDT [facility] Blood Venous blood specimen / Unknown Venipuncture / Unknown 02/16/2024 8:38 AM EDT 02/16/2024 8:38 AM EDT us Kaylan Kee APRN, DNP LAB BLOOD ORDERABLES Final Result Performing Organization Address City/[facility]/ZIP Co de Phone Number [facility] [address] [place] [address] * (ABNORMAL) CBC and Differential (02/16/2024 8:38 AM EDT) [facility] Signature WBC Count 7.36 3.70 - 10.30 10*3/uL LAB HEMATOLOGY METHOD 02/16/2024 1:24 PM EDT [facility] RBC Count 4.86 4.60 - 6.10 10*6/uL LAB HEMATOLOGY METHOD 02/16/2024 1:24 PM EDT [facility] HGB 15.8 13.7 - 17.5 g/dL LAB HEMATOLOGY METHOD 02/16/2024 1:24 PM EDT [facility] HCT 47.0 40.0 - 51.0 % LAB HEMATOLOGY METHOD 02/16/2024 1:24 PM EDT [facility] Platelet Count 212 155 - 369 10*3/uL LAB HEMATOLOGY METHOD 02/16/2024 1:24 PM EDT [facility] MCV 97 79 - 98 fL LAB HEMATOLOGY METHOD 02/16/2024 1:24 PM EDT [facility] MCH 32.5(H) 26.0 - 32.0 pg LAB HEMATOLOGY METHOD 02/16/2024 1:24 PM EDT [facility] MCHC 33.6 30.7 - 35.5 g/dL LAB HEMATOLOGY METHOD 02/16/2024 1:24 PM EDT [facility] RDW 13.6 11.5 - 14.5 % LAB HEMATOLOGY METHOD 02/16/2024 1:24 PM EDT [facility] MPV 9.7 8.8 - 12.5 fL LAB HEMATOLOGY METHOD 02/16/2024 1:24 PM EDT [facility] nRBC 0.0 <=0.0 per 100 WBCs LAB HEMATOLOGY METHOD 02/16/2024 1:24 PM EDT [facility] Differential Type Automated LAB HEMATOLOGY METHOD 02/16/2024 1:24 PM EDT [facility] Neutrophils % 42 % LAB HEMATOLOGY METHOD 02/16/2024 1:24 PM EDT [facility] Lymphocytes % 37 % LAB HEMATOLOGY METHOD 02/16/2024 1:24 PM EDT [facility] Monocytes % 15 % LAB HEMATOLOGY METHOD 02/16/2024 1:24 PM EDT [facility] Eosinophils % 5 % LAB HEMATOLOGY METHOD 02/16/2024 1:24 PM EDT [facility] Basophils % 1 % LAB HEMATOLOGY METHOD 02/16/2024 1:24 PM EDT [facility] Immature Granulocytes % 0 % LAB HEMATOLOGY METHOD 02/16/2024 1:24 PM EDT [facility] Neutrophils Absolute 3.06 1.60 - 6.10 10*3/uL LAB HEMATOLOGY METHOD 02/16/2024 1:24 PM EDT [facility] Lymphocytes Absolute 2.75 1.20 - 3.90 10*3/uL LAB HEMATOLOGY METHOD 02/16/2024 1:24 PM EDT [facility] Monocytes Absolute 1.07(H) 0.30 - 0.90 10*3/uL LAB HEMATOLOGY METHOD 02/16/2024 1:24 PM EDT [facility] Eosinophils Absolute 0.37 0.00 - 0.50 10*3/uL LAB HEMATOLOGY METHOD 02/16/2024 1:24 PM EDT [facility] Basophils Absolute 0.09 0.00 - 0.10 10*3/uL LAB HEMATOLOGY METHOD 02/16/2024 1:24 PM EDT [facility] Immature Granulocytes Absolute 0.02 0.00 - 0.06 10*3/uL LAB HEMATOLOGY METHOD 02/16/2024 1:24 PM EDT [facility] Blood Venous blood specimen / Unknown Venipuncture / Unknown 02/16/2024 8:38 AM EDT 02/16/2024 8:38 AM EDT Narrative [facility] - 02/16/2024 1:24 PM EDT Therapeutic decision making should be based on absolute values, rather than percentages. us Kaylan Kee NATURALIST, DNP LAB BLOOD ORDERABLES Final Result [facility] [address] [place] [address] * (ABNORMAL) Comprehensive Metabolic Panel, Plasma (02/16/2024 8:38 AM EDT) Glucose, Plasma 120(H) 74 - 99 mg/dL 02/16/2024 1:34 PM EDT [facility] BUN, Plasma 10 8 - 23 mg/dL 02/16/2024 1:34 PM EDT [facility] Creatinine, Plasma 0.94 0.70 - 1.20 mg/dL 02/16/2024 1:34 PM EDT [facility] BUN/Creatinine Ratio 11 02/16/2024 1:34 PM EDT [facility] Sodium, Plasma 139 136 - 145 mmol/L 02/16/2024 1:34 PM EDT [facility] Potassium, Plasma 4.3 3.6 - 4.9 mmol/L 02/16/2024 1:34 PM EDT [facility] Chloride, Plasma 104 97 - 107 mmol/L 02/16/2024 1:34 PM EDT [facility] CO2, Plasma 23 22 - 29 mmol/L 02/16/2024 1:34 PM EDT [facility] Anion Gap 12 6 - 16 mmol/L 02/16/2024 1:34 PM EDT [facility] Total Calcium, Plasma 9.4 8.9 - 10.2 mg/dL 02/16/2024 1:34 PM EDT [facility] Total Protein 7.4 6.3 - 7.9 g/dL 02/16/2024 1:34 PM EDT [facility] Albumin, Plasma 4.4 3.5 - 5.2 g/dL 02/16/2024 1:34 PM EDT [facility] AST, Plasma 36 10 - 50 U/L 02/16/2024 1:34 PM EDT [facility] ALT, Plasma 31 10 - 50 U/L 02/16/2024 1:34 PM EDT [facility] Alkaline Phosphatase, Plasma 58 40 - 115 U/L 02/16/2024 1:34 PM EDT [facility] Total Bilirubin, Plasma 0.4 0.2 - 1.1 mg/dL 02/16/2024 1:34 PM EDT [facility] eGFRcr 87.8 mL/min/1.7 3m*2 02/16/2024 1:34 PM EDT [facility] Comment:Reported eGFRcr in m L/min/1.73m2 is based the CKD-EPI 2020 equation that does not use a race coefficient. Blood Venous blood specimen / Unknown Venipuncture / Unknown 02/16/2024 8:38 AM EDT 02/16/2024 8:38 AM EDT us Kaylan Kee APRN, KYLEE LAB BLOOD ORDERABLES Final Result [facility] [address] [place] [address] * POCT Urinalysis dipstick (02/16/2024 8:26 AM EDT) POCT Urine Color Dark Yellow [facility] POCT Urine Clarity Clear [facility] POCT Glucose Urine Negative Negative mg/dL [facility] POCT Bilirubin, Urine Negative Negative [facility] POCT Ketones, Urine Negative Negative mg/dL [facility] POCT Specific [place], Urine >=1.030 [facility] POCT Blood, Urine Negative Negative [facility] POCT pH, Urine 6.0 5.0 to 8.0 [facility] [place] POCT Protein, Urine Negative Negative mg/dL [facility] POCT Urobilinogen, Urine 0.2 0.2, 1 E.U./dL [facility] POCT Nitrite, Urine Negative Negative [facility] POCT Leukocyte Esterase, Urine Negative Negative [facility] Test Strip Lot Number [id number] [facility] Test Strip Lot Expiration 11/27/2024 [facility] Urine Urine specimen obtained by clean catch procedure / Unknown 02/16/2024 8:26 AM EDT us Kaylan Kee APRN, KYLEE POINT OF CARE TEST EN TER/EDIT ORDERABLES Final Result [facility] [address] [place] [address] documented in this encounter Visit Diagnoses Diagnosis Generalized abdominal cramping Diarrhea, unspecified type Flank pain Abdominal pain, unspecified site documented in this encounter Additional Health Concerns Assessment Noted Time PHQ-9 Depression Total Score: 16 023 9:41 AM EDT A fall risk assessment has been complete d for the patient 02/16/2024 7:44 AM EDT A Body Mass Index follow-up plan has been documented for the patient 02/16/2024 8:51 AM EDT documented as of this encounter Care Teams Radio Talk Show Host Relationship Specialty Start Date End Date Dahlia Crane MD [address] [place] [address] PCP - General 09/11/20 documented as of this encounter
--- OUTSIDE RECORDS SUMMARY | 2024-03-19 13:30 | XMS_ITS | Encounter Summary ---
Author Organization [employer] Address [address] [place] [address] Care Team Providers Care Insole Department Worker Name Role Phone Dahlia Crane MD Primary Care Provider [phone] Encounter Details Date Type Department Care Team (Latest Contact Info) Description 04/28/2022 Travel Social History Tobacco Use Types Packs/Day Years Used Date Smoking Tobacco: Never Smokeless Tobacco: Never Alcohol Use Standard Drinks/Week Comments Yes 0 (1 standard drink = 0.6 oz pur e alcohol) socially Sex and Gender Information Value Date Recorded Sex Assigned at Not on file Legal Sex Male 3:37 PM CDT Gender Identity Not on file Sexual Orientation Not on file COVID-19 Exposure Response Date Recorded In the last 10 days, have yo u been in contact with someone who was confirmed or suspected to have Coronavirus/COVID-19? No / Unsure 04/28/2022 10:38 AM EST documented as of this encounter Plan of Treatment Not on file documented as of this encounter Visit Diagnoses Not on filedocumented in this encounter Care Teams Insole Department Worker Relationship Specialty Start Date End Date Dahlia Crane MD [address] [place] [id number] PCP - General Family Medicine 04/28/22 documented as of this encounter
--- OUTSIDE RECORDS SUMMARY | 2024-03-19 13:30 | XMS_ITS | Referral Summary ---
Author Organization [employer] Address [address] [place] [address] Care Team Providers Care Plate Grainer Apprentice Name Role Phone Dahlia Crane MD Primary Care Provider [phone] Allergies No known active allergies Medications No known medications Social History Tobacco Use Types Packs/Day Years Used Date Smoking Tobacco: Never Smokeless Tobacco: Never Alcohol Use Standard Drinks/Week Comments Yes 0 (1 standard drink = 0.6 oz pur e alcohol) socially Interpersonal Safety Answer Date Record ed Family or friends hurt you Not on file 05/19 Family or friends insult you Not on file Family or friends threaten you Not on file 0 05/19/2023 Family or friends scream or curse at you Not on file 05/19/2023 Housing Stability Answer Date Recorded Living situation today Not on file Living situation problems Not on file 2023 Food Insecurity Answer Date Recorded Food run out past 12 months Not on file 05/01 Food did not last past 12 months Not on file 05/19/2023 Employment Answer Date Recorded Help finding and keeping a job Not on file 0 05/19/2023 Family and Community Support Answer Fredy e Recorded Help with Day to Day Activities Not on file 05/19/2023 Feeling Lonely or Isolated Not on file 05/19 Educational Attainment Answer Date Ronald rded Speak language other than Tunisian at home Not on file 05/19/2023 Want help with school or training Not on file 05/19/2023 Depression Answer Date Recorded PHQ-2 Risk Not on file 05/19/2023 Disabilities Answer Date Recorded Difficulty concentrating Not on file 024 Difficulty doing errands alone Not on file 0 05/19/2023 Substance Use Answer Date Recorded Used prescription meds for non-medical reasons N ot on file 05/19/2023 Used illegal drugs past 12 months Not on file 05/19/2023 Sex and Gender Information Value Date Recorded Sex Assigned at Not on file Legal Sex Male 3:37 PM CDT Gender Identity Not on file Sexual Orientation Not on file Last Filed Vital Signs Vital Sign Reading Time Taken Comments Blood Pressure 139/86 04/28/2022 10:53 AM EST Pulse 72 04/28/2022 10:53 AM EST Temperature 36.9 ??C (98.5 ??F) 04/28/2022 10:[address] Respiratory Rate 18 04/28/2022 10:53 AM EST Oxygen Saturation 96% 04/28/2022 10:53 AM EST Inhaled Oxygen Concentration - - Weight 95.3 kg (210 lb) 04/28/2022 10:53 AM EST Height 172.7 cm (5' 8 ) 04/28/2022 10:53 AM EST Body Mass Index 31.93 04/28/2022 10:53 AM EST Plan of Treatment Not on file Insurance BLUE CROSS/BLUE SHIELD Care Teams Plate Grainer Apprentice Relationship Specialty Start Date End Date Dahlia Crane MD [address] [place] [phone] PCP - General Family Medicine 04/28/22
--- OUTSIDE RECORDS SUMMARY | 2024-03-19 13:30 | XMS_ITS | Encounter Summary ---
Author Organization [employer] Address [address] [place] [address] Care Team Providers Care Ethylene Plant Helper Name Role Phone Dahlia Crane MD Primary Care Provider [phone] Encounter Details Date Type Department Care Team (Latest Contact Info) Description 04/28/2022 9:08 AM EST - 04/28/2022 11:59 PM EST Hospital Encounter [facility] Preadmission Testing [address] [place] [phone] Discharge Disposition: Home or Self Care Social History Tobacco Use Types Packs/Day Years [...] AM EST documented as of this encounter Last Filed [...] Mass Index 31.93 04/28/2022 10:53 AM EST documented in this encounter Progress Notes * Kay Carver NP - 04/28/2022 10:00 AM ESTSummary: Addendum for PREOPERATIVE H&P Addendum: Pt received PCP clearance from Dr. Crane. Fructosamine 242 Vit D 23.1 PT 12.6 Glu 101 GFR 87.2 Vit D 23.1, Plan: recommend oral Vit D supplementation with PCP f/u. Prince/Cot <5 MRSA pending [facility] documented in this encounter H&P Notes * Ray Aguero APRN - 04/28/2022 10:00 AM EST HPI History Of Present Illness Harley Tovar is a 67 y.o. male presenting with right knee pain. The pain has been going on for 2+years but is getting progressively worse. He describes it as a aching, constant pain. Only rest andelevation make it better. It is now to the point that it is affecting his ADLs and sleep. He has tried medication, injections without relief of his pain. He has not fallen. He has not used an assistive device. He saw Dr. Napier who evaluated him and was offered a right total knee arthroplasty. The patient agreed to the procedure.?? Pt does not have a h/o DVT/PE. No trouble with anesthesia in the past. Pt without h/o COPD/Asthma/[place]. REVIEW OF SYSTEMS: Constitutional: Neg for fevers or chills. Eyes: Neg for blurry vision or change in vision. ENT: Neg for sore throat, ear pain, or dizziness. Cardiac: Neg for chest pain or dyspnea on exertion. Respiratory: Neg for shortness of breath. Gastrointestinal: Neg for nausea, vomiting, diarrhea, or constipation. Musculoskeletal: Pos for right knee pain and stiffness, biltaeral shoulder stiffness, multiple sites of achey arthritis pain Neurologic: Neg for headaches or seizures. Psychiatric: Neg for anxiety and depression. Integumentary: Neg for rash. Past Medical History He has a past medical history of Arthritis. Surgical History He has a past surgical history that includes Joint replacement (Bilateral); Joint replacement (Left); Colonoscopy; and knee scope (Bilateral). Social History He reports that he has never smoked. He has never used smokeless tobacco. He reports current alcohol use. He reports that he does not use drugs. 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 Family History CHF in his dad and brother. Diabetes runs in the family. Allergies Patient has no known allergies. Medications No current outpatient medications Last Recorded Vitals Blood pressure 139/86, pulse 72, temperature 98.5 ??F (36.9 ??C), temperature source Tympanic, resp. rate 18, height 1.727 m (5' 8 ), weight 95.3 kg (210 lb), SpO2 96 %. Physical Exam PHYSICAL EXAM: Constitutional: Alert and oriented, pleasant, in no acute distress. BMI 31.9 HEENT: Normocephalic, atraumatic. EOMI. Conjunctiva pink without exudate. Oropharynx pink and moist. Neck supple. Cardiac: RRR. No M/R/G. Respiratory: Lungs CTA bilaterally. Nonlabored breathing. Abdomen: Soft, nontender, nondistended. Musculoskeletal: limited AROM to right knee due to pain and stiffness. Integumentary: Skin is pink, warm and dry. No rashes. Neurologic: CN II-XII grossly intact. Psychiatric: Judgment and affect appropriate. Diagnostic Results No visits with results within 1 Day(s) from this visit. Latest known visit with results is: No results found for any previous visit. No image results found. DIAGNOSTICS: EKG - NSR VR 67 Na 139, K 4.3, Cl 103, CO2 23, BUN 16, Cr 0.9 TP 7.6, Albumin 5.0, AST 24, ALT 25, Alk phos 55, Tbili 0.5 Prealbumin 28.3 APTT 27 INR 0.9 WBC 9.8, Hg 15.6, Hct 45.8, MCV 94, Plt 231 A1C 5.5 Assessment & Plan Active Problems: There are no active Hospital Problems. Polyosteoarthritis with R Knee OA: Pending right sided TKA with Dr. Napier scheduled fr 05/09/22. Hx HTN: Off meds due to intentional weight loss, currently controlled. Electronically signed by: RAY AGUERO APRN, 04/28/2022 at 11:02 AM Cosigned by Cain Cavazos MD at 04/28/2022 1:35 PM EST [facility] documented in this encounter Plan of Treatment Not on file documented as of this encounter Procedures Procedure Name Priority Date/Time Associated Diagnosis Comments CBC W/ AUTO DIFF Routine 04/28/2022 12:1 9 PM EST NICOTINE & METS, S/P, QUANT(SENDOUT) Routine 04/28/2022 12:19 PM EST FRUCTOSAMINE(SENDOU T) Routine 04/28/2022 12:19 PM EST VITAMIN D, 25-HYDROXY Routine 04/28/2022 12:19 PM EST MRSA SCREEN Routine 04/28/2022 12:19 PM EST documented in this encounter Results * MRSA Screen (04/28/2022 12:19 PM EST) Result No MRSA Detected 04/30/2022 5:58 AM EST [facility] Nasal (qualifier value) BOTH ANTERIOR NARES / Unknown 04/28/2022 12:19 PM EST 04/28/2022 12:19 PM EST Narrative [facility] - 04/30/2022 5:58 AM EST For Infection Control surveillance only. For Infection Control surveillance only. Homero Goldberg MD MICROBIOLOGY - GENERAL ORDERABLES Final Result [facility] [address] [phone] * (ABNORMAL) Vitamin D, 25-Hydroxy (04/28/2022 12:19 PM EST) Vitamin D 25-Hydroxy 23.1(L) 30.0 - 100.0 ng/mL 04/28/2022 1:04 PM EST [facility] Blood Venipuncture / Unknown 04/28/2022 12:19 PM EST 04/28/2022 12:19 PM EST Narrative [facility] - 04/28/2022 1:04 PM EST <20 Deficient 20 to 29 Insufficient 30 to 100 Sufficient >100 Toxic Biotin supplements can cause clinically significant incorrect lab results. The FDA has seen an increase in the number of adverse events related to biotin interference with lab tests. Homero Goldberg MD LAB BLOOD ORDERABLES Fi nal Result Performing Organization Address City/State/[facility] Co de Phone Number [facility] [address] [place] [address], [facility] [phone] * Nicotine & Mets, S/P, Quant(SENDOUT) (04/28/2022 12:19 PM EST) Cotinine, S/P, Quant <5 ng/mL 05/01/2022 10:24 PM EST [facility] Nicotine, S/P, Quant <5 ng/mL 05/01/2022 10:24 PM EST [facility] Comment: Consistent with abstinence from nicotine-containing products for at least 1 week. INTERPRETIVE INFORMATION: Nicotine and Metabolites, ?Serum or Plasma, ?Quantitative Methodology: Quantitative Liquid Chromatography-Tandem Mass Spectrometry Positive cutoff: 5 ng/mL For medical purposes only; not valid for forensic use. This test is designed to evaluate recent use of nicotine-containing products. ??Passive and active exposure cannot be discriminated definitively, although a cutoff of 10 ng/mL cotinine is frequently used for surgery qualification purposes. ?? For smoking cessation programs or compliance testing, the absence of expected drug(s) and/or drug metabolite(s) may indicate non-compliance, inappropriate timing of specimen collection relative to drug administration, poor drug absorption, or limitations of testing. This test cannot distinguish between use of tobacco and purified nicotine products. The concentration value must be greater than or equal to the cutoff to be reported as positive. ?? This test was developed and its performance characteristics determined by [facility] [employer]. It has not been cleared or approved by the [place] Food and Drug Administration. This test was performed in a CLIA certified laboratory and is intended for clinical purposes. Performed By: [place] [id number] Print Designer: Milad Jimenez MD, PhD Blood Venipuncture / Unknown 04/28/2022 12:19 PM EST 04/28/2022 12:19 PM EST Homero Goldberg MD LAB BLOOD ORDERABLES Fi nal Result Performing Organization Address [facility] Co de Phone Number [address] [phone] * Fructosamine(SENDOUT) (04/28/2022 12:19 PM EST) Fructosamine 242 205 - 285 umol/L 04/29/2022 1:16 PM EST [facility]PLACED BY [facility] Comment: INTERPRETIVE INFORMATION: ??Fructosamine Variations in levels of serum proteins (albumin and immunoglobulins) may affect fructosamine results. Performed By: [facility] [address] [place] [address] Print Designer: Milad Jimenez MD, PhD Blood Venipuncture / Unknown 04/28/2022 12:19 PM EST 04/28/2022 12:19 PM EST Homero Goldberg MD LAB BLOOD ORDERABLES Fi nal Result Performing Organization Address [facility]/ZIP Co de Phone Number [address] [phone] * (ABNORMAL) CBC with automated diff (04/28/2022 12:19 PM EST) WBC 8.1 3.9 - 10.0 K/??L 04/28/2022 12:30 PM [facility] RBC 4.97 4.63 - 6.08 M/??L 04/28/2022 12:30 PM [facility] Hemoglobin 15.9(H) 11.2 - 15.7 GM/DL 04/28/2022 12:30 PM [facility] Hematocrit 46.1 40.1 - 51.0 % 04/28/2022 12:30 PM [facility] MCV 93 79 - 95 fL 04/28/2022 12:30 PM [facility] MCH 32.0 25.6 - 32.2 pg 04/28/2022 12:30 PM [facility] MCHC 34.5 32.3 - 36.5 GM/DL 04/28/2022 12:30 PM [facility] RDW 13.0 11.6 - 14.4 % 04/28/2022 12:30 PM [facility] Platelets 214 163 - 369 K/CU MM 04/28/2022 12:30 PM [facility] MPV 9.4 9.4 - 12.4 fL 04/28/2022 12:30 PM [facility] % Neutros 42 34 - 71 % 04/28/2022 12:30 PM [facility] % Lymphs 41 19 - 53 % 04/28/2022 12:30 PM [facility] % Monos 11 4 - 13 % 04/28/2022 12:30 PM [facility] % Eos 6 1 - 7 % 04/28/2022 12:30 PM [facility] % Baso 1 0 - 1 % 04/28/2022 12:30 PM [facility] # Neutros 3.37 1.56 - 6.13 K/??L 04/28/2022 12:30 PM [facility] # Lymphs 3.29 1.18 - 3.74 K/??L 04/28/2022 12:30 PM [facility] # Monos 0.86(H) 0.24 - 0.82 K/??L 04/28/2022 12:30 PM [facility] # Eos 0.49 0.04 - 0.54 K/??L 04/28/2022 12:30 PM EST [facility] # Baso 0.09(H) 0.01 - 0.08 K/??L 04/28/2022 12:30 PM EST [facility] Immature Granulocytes-Re lative 0.20 0.00 - 0.60 % 04/28/2022 12:30 PM EST [facility] # IG 0.02 0.00 - 0.05 K/uL 04/28/2022 12:30 PM EST [facility] Blood Venipuncture / Unknown 04/28/2022 12:19 PM EST 04/28/2022 12:19 PM EST Narrative [facility] - 04/28/2022 12:30 PM EST When CBC w/ Auto Diff is ordered the lab will add a Manual Differential as a quality check at no additional charge if: Lymphocytes greater than seventy five percent with normal or increased WBC Monocytes greater than Fifteen percent Basophil greater than four percent Bands >10% or several immature myeloids are seen on scan Blast? Flag noted Atypical Lymph flag noted us Homero Goldberg MD LAB BLOOD ORDERABLES Fi nal Result [facility] [address] [place] [address], [facility] [phone] documented in this encounter Visit Diagnoses Not on filedocumented in this encounter Care Teams Ethylene Plant Helper Relationship Specialty Start Date End Date Dahlia Crane MD [address] [place] [phone] PCP - General Family Medicine 04/28/22 documented as of this encounter
--- OUTSIDE RECORDS SUMMARY | 2024-03-19 13:30 | XMS_ITS | Clinical Summary ---
Author Organization [employer] Address [address] [place] [address] Care Team Providers Care Learning Disabilities Specialist Name Role Phone Dahlia Crane MD Primary Care Provider Allergies No known active allergies Medications No [...] Date Ronald rded Speak language other than Niuean at home Not on file 05/19/2023 Want [...] 04/28/2022 10:53 AM EST Plan of Treatment Health Maintenance Due Date Last Done Comments CT Colonography 1954 Colonoscopy 1954 Colorectal Cancer Screening 1954 FOBT/FIT 1954 Fit-DNA (Cologuard) 1954 Sigmoidoscopy 1954 Depression Screening (12+) 1966 Hepatitis C Screening 02/23/1972 DTAP/TDAP/TD VACCINES (1 - Tdap) 1973 Tobacco Cessation Counseling and Screening (12+) 04/28/2023 04/28/2022 Falls Risk Screening 05/01/2023 COVID-19 VACCINE (6 - 2023-2 5 season) 2023 02/09/2022, 10/22/2021, 03/12/2021, Additional history exists Influenza Vaccine (#1) 2023 , 12/31/2019, 02/04/2016 Respiratory Syncytial Virus (RSV) Adult or (1 - 1-dose 75+ series) 2029 Shingles Vaccine (Zoster) Completed 04/28/2020, 09/2019 Pneumococcal 65+ years Completed 01/29/2021, 2019 Insurance BLUE CROSS/BLUE SHIELD Care Teams Learning Disabilities Specialist Relationship Specialty Start Date End Date Dahlia Crane MD [address] [place] [phone] PCP - General Family Medicine 04/28/22
--- OUTSIDE RECORDS SUMMARY | 2024-03-19 13:30 | XMS_ITS | Encounter Summary ---
Author Organization [facility] Address [address] [id number] Care Team Providers Care Supply And Distribution Manager Name Role Phone Dahlia Crane MD Primary Care Provider [phone] Reason for Visit * Reason Comments Med Refill Encounter Details Date Type Department Care Team (Late st Contact Info) Description 02/02/2024 [facility]ill [facility] [address] [place] [phone] Dahlia Crane MD [address] [place] [phone] Gastroesophageal reflux disease without esophagitis Social History Tobacco Use Types Packs/Day Years [...] 10/26/2023 How often do you attend chur or temple services? More than 4 times per year 10/26/2023 Do you belong to any clubs o r organizations such as anglican groups, unions, fraternal or athletic groups, or [...] Date Recorded Patient Health Questionnaire-2 Score 1 11/09/2023 [facility] - Occupational Stress Questionnaire Answer Date [...] place to sleep or slept in a half-way (including now)? No 10/26/2023 PHQ-9 Answer Date Recorded Patient Health Questionnaire-9 Score 16 08/09/2022 Utilities Answer Date Recorded In the past 12 months has e electric, gas, oil, or water company [...] documented as of this encounter Visit Diagnoses Diagnosis Gastroesophageal reflux disease without esophagitis Esophageal reflux documented in this encounter Additional Health Concerns Assessment Noted Time PHQ-9 Depression Total Score: 16 023 9:41 AM EDT A fall risk assessment has been complete d for the patient 11/09/2023 9:52 AM EDT A Body Mass Index follow-up plan has been documented for the patient 11/09/2023 10:56 AM EDT documented as of this encounter Care Teams Supply And Distribution Manager Relationship Specialty Start Date End Date Dahlia Crane MD [address] [place] [phone] PCP - General 09/11/20 documented as of this encounter
--- OUTSIDE RECORDS SUMMARY | 2024-03-19 13:30 | XMS_ITS | Encounter Summary ---
Author Organization [employer] Address [address] [place] [address] Care Team Providers Care Manager Event Name Role Phone Dahlia Crane MD Primary Care Provider [phone] Encounter Details Date Type Department Care Team (Late st Contact Info) Description 08/30/2022 Lab Requisition [facility] Lab [address] [place] [address] Homero Goldberg MD [address] [place] [address] Effusion, right knee Social History Tobacco Use Types Packs/Day Years [...] Procedure Name Priority Date/Time Associated Diagnosis Comments [facility] DIFFERENTIAL, BODY FLUID Routine 08/30/2022 2:00 PM EDT Effusion, right knee AFB CULTURE AND STAIN Routine 08/30/2022 2:00 PM EDT Effusion, right knee FUNGUS CULTURE W/ALEJANDRA OR JEANNA INK Routine 08/30/2022 2:00 PM EDT Effusion, right knee ANAEROBIC CULTURE, EXTENDED (P.ACNES) Routine 08/30/2022 2:00 PM EDT Effusion, right knee BODY FLUID CRYSTALS Routine 08/30/2022 2 :00 PM EDT Effusion, right knee BODY FLUID CULTURE + GRAM STAIN Routine 08/30/2022 2:00 PM EDT Effusion, right knee BODY FLUID CELL COUNT WITH DIFFERENTIAL Routine 08/30/2022 2:00 PM EDT Effusion, right knee documented in this encounter Results * DIFFERENTIAL, BODY FLUID (08/30/2022 2:00 PM EDT) Neutrophils Fluid 5 0 - 25 % 08/30/2022 9:09 PM EDT [facility] Lymphocytes Fluid 7 % 08/30/2022 9:09 PM EDT [facility] Monocytes Fluid 88 0 - 65 % 9:09 PM EDT [facility] Synovial Fluid STRUCTURE OF RIGHT KNEE REGION / Unknown 08/30/2022 2:00 PM EDT 08/30/2022 8:46 PM EDT Homero Goldberg MD BODY FLUIDS AND STOOLS ORDERABLES Final Result [facility] [address] [place] [address] * Body fluid crystals (08/30/2022 2:00 PM EDT) BODY FLUID TYPE Synovial 08/30/2022 8:52 PM EDT [facility] Ca Phos Oriana, UA Absent Absent 08/30/2022 8:52 PM EDT [facility] Monosodium Urate Absent Absent 08/30/2022 8:52 PM EDT [facility] Body Fluid Crystals No crystals seen. No crystals seen., See Comment 08/30/2022 8:52 PM EDT [facility] Synovial Fluid STRUCTURE OF RIGHT KNEE REGION / Unknown 08/30/2022 2:00 PM EDT 08/30/2022 8:46 PM EDT Homero Goldberg MD BODY FLUIDS AND STOOLS ORDERABLES Final Result [facility] [address] [place] [address], [facility] [phone] * AFB Culture And Stain (08/30/2022 2:00 PM EDT) Result No Acid Fast Bacilli isolated at 6 weeks 10/11/2022 9:[address] [facility] [place] AFB Smear No acid fast bacilli seen 10/11/2022 9:[address] [facility] [place] Synovial Fluid STRUCTURE OF RIGHT KNEE REGION / Unknown 08/30/2022 2:00 PM EDT 08/30/2022 8:46 PM EDT Homero Goldberg MD MICROBIOLOGY - GENERAL ORDERABLES Final Result Performing Organization Address City/[facility]/ZIP Co de Phone Number [facility] [place] [address] [place] [address], [facility] [phone] * Fungus Culture W/ALEJANDRA Or Jeanna Ink (08/30/2022 2:00 PM EDT) Result No fungus isolated at 6 weeks. 10/11/2022 9:[address] [facility] [place] ALEJANDRA Prep No fungal elements seen 10/11/2022 9:[address] [facility] [place] Synovial Fluid STRUCTURE OF RIGHT KNEE REGION / Unknown 08/30/2022 2:00 PM EDT 08/30/2022 8:46 PM EDT Homero Goldberg MD MICROBIOLOGY - GENERAL ORDERABLES Final Result [facility] [place] [address] [place] [address], [facility] [phone] * (ABNORMAL) Body fluid cell count with differential (08/30/2022 2:00 PM EDT) Appearance Turbid(A) Clear 08/30/2022 9:09 PM EDT [facility] Color Yellow 08/30/2022 9:09 PM EDT [facility] BODY FLUID TYPE Synovial 9:09 PM EDT [facility] Auto WBC/Nucleated Cells BF 416 u/L 08/30/2022 9:09 PM EDT [facility] Comment: Please refer to specific WBC/Nucleated Cell Count Body Fluid reference ranges below: For Pleural: 0-1000 Peritoneal: 0-1000 Pericardial:0-1000 Synovial: 0-200 Auto RBC BF 3,000 u/L 08/30/2022 9:09 PM EDT [facility] Comment: Please refer to specific RBC Cell Count Body Fluid reference ranges below: Pleural: 0-10,000 Peritoneal: 0-10,000 Pericardial:0-10,000 Synovial:0-30 Synovial Fluid STRUCTURE OF RIGHT KNEE REGION / Unknown 08/30/2022 2:00 PM EDT 08/30/2022 8:46 PM EDT Narrative [facility] - 08/30/2022 9:09 PM EDT There is normally no readily obtainable pleural, peritoneal and pericardial fluid, hence normal elements for these potential fluids are not defined. Homero Goldberg MD BODY FLUIDS AND STOOLS ORDERABLES Final Result [facility] [address] [place] [address] * Body Fluid Culture + Gram Stain (08/30/2022 2:00 PM EDT) Result No growth 09/03/2022 7:[address] [facility] [place] Gram Stain Result No organisms seen 09/03/2022 7:[address] [facility] [place] Gram Stain Result No cells seen 09/03/2022 7:[address] [facility] [place] Synovial Fluid STRUCTURE OF RIGHT KNEE REGION / Unknown 08/30/2022 2:00 PM EDT 08/30/2022 8:46 PM EDT Homero Goldberg MD MICROBIOLOGY - GENERAL ORDERABLES Final Result Performing Organization Address [facility] Co de Phone Number [facility] [place] [address] [phone] * Anaerobic Culture, Extended (P.acnes) (08/30/2022 2:00 PM EDT) Result No anaerobic growth at 14 days. No Cutibacterium acnes (formerly Propionibacterium acnes) isolated 09/14/2022 8:[address] [facility] [place] Synovial Fluid STRUCTURE OF RIGHT KNEE REGION / Unknown 08/30/2022 2:00 PM EDT 08/30/2022 8:46 PM EDT Homero Goldberg MD MICROBIOLOGY - GENERAL ORDERABLES Final Result Performing Organization Address [facility] Co de Phone Number [facility] [place] [address] [phone] documented in this encounter Visit Diagnoses Diagnosis Effusion, right knee documented in this encounter Care Teams Manager Event Relationship Specialty Start Date End Date Dahlia Crane MD [address] [place] [address] PCP - General Family Medicine 04/28/22 documented as of this encounter
--- OUTSIDE RECORDS SUMMARY | 2024-03-19 13:31 | XMS_ITS | Encounter Summary ---
Author Organization Healthcare Address [address] [place] [address] Care Team Providers Care Data Entry Supervisor Name Role Phone Dahlia Crane MD Primary Care Provider [phone] Citlali Freire LPN Unavailable Unavail able Reason for Visit * Reason Comments Annual Wellness Visit Encounter Details Date Type Department Care Team ([facility] st Contact Info) Description 04/25/2023 Patient Outreach [facility] [address] [place] [phone] Citlali Freire LPN [employer] [place] [address] Annual Wellness Visit Social History Tobacco Use Types Packs/Day Years Used Date Smoking Tobacco: Never Smokeless Tobacco: Never PHQ-2 Answer Date Recorded Patient Health Questionnaire-2 Score 0 04/06/2023 PHQ-9 Answer Date Recorded Patient Health Questionnaire-9 Score 16 08/09/2022 PHQ-2A Answer Date Recorded Patient Health Questionnaire-2 [...] has been complete d for the patient 04/06/2023 10:33 AM EST A Body Mass Index follow-up plan has been documented for the patient 04/06/2023 12:05 PM EST documented as of this encounter Care Teams Data Entry Supervisor Relationship Specialty Start Date End Date Dahlia Crane MD [address] [place] [address] PCP - General 09/11/20 Citlali Freire LPN [employer] [place] [address] TCM Nurse 04/25/23 04/27/23 documented as of this encounter
--- OUTSIDE RECORDS SUMMARY | 2024-03-19 13:31 | XMS_ITS | Encounter Summary ---
Author Organization Healthcare Address [address] [id number] Care Team Providers Care Contingents Supervisor Name Role Phone Dahlia Crane MD Primary Care Provider [phone] Encounter Details Date Type Department Care Team (Late st Contact Info) Description 12/09/2022 Telephone [facility] [address] [place] [address] Dahlia Crane MD [address] [place] [address] Social History Tobacco Use Types Packs/Day Years Used Date Smoking Tobacco: Never Smokeless Tobacco: Never PHQ-2 Answer Date Recorded Patient Health Questionnaire-2 Score 1 12/08/2022 PHQ-9 Answer Date Recorded Patient Health Questionnaire-9 Score 16 08/09/2022 Sex and Gender Information Value Date Recorded Sex Assigned at Not on file Legal Sex Male 7:49 PM EDT Gender Identity Not on file Sexual Orientation Not on file documented as of this encounter Miscellaneous Notes * Telephone Encounter - Kallie Avalos - 12/09/2022 12:34 PM EDT Pt aware * Telephone Encounter - Dahlia Crane MD - 12/09/2022 12:00 PM EDT Okay, I think that is the next step in workup of this * Telephone Encounter - Caro Gonzales - 12/09/2022 11:45 AM EDT Not yet, but I've just sent referral. Patient wanted to wait for his new insurance, which he just got. * Telephone Encounter - Dahlia Crane MD - 12/09/2022 11:37 AM EDT Did he have his colonoscopy * Telephone Encounter - Caro Gonzales - 12/09/2022 11:19 AM EDT Called patient and informed of lab results. Patient states his bowel movements have been weird . States one day they vary from runny, normal, and soft. States its not diarrhea but is similar. Has noother symptoms. * Telephone Encounter - Mraissa Kahn - 12/09/2022 10:02 AM EDT ----- Message from Dahlia Crane MD sent at 12/09/2022 9:50 AM EDT ----- White blood cell count is normal indicating no infection in the blood stream, no anemia No diabetes Prostate level is normal blood sugar, kidney function, liver function and electrolytes all normal Urinalysis normal No reason and labs for urinary frequency and abdominal pain, could this be constipation? How are his bowel movements? documented in this encounter Plan of Treatment Not on file documented as of this encounter Visit Diagnoses Not on filedocumented in this encounter Additional Health Concerns Assessment Noted Time PHQ-9 Depression Total Score: 16 023 9:41 AM EDT A fall risk assessment has been complete d for the patient 12/08/2022 2:46 PM EDT A Body Mass Index follow-up plan has been documented for the patient 12/08/2022 3:40 PM EDT documented as of this encounter Care Teams Contingents Supervisor Relationship Specialty Start Date End Date Dahlia Crane MD [address] [place] [phone] PCP - General 09/11/20 documented as of this encounter
--- OUTSIDE RECORDS SUMMARY | 2024-03-19 13:31 | XMS_ITS | Encounter Summary ---
Author Organization [facility] Address [address] [place] [address] Care Team Providers Care Welt Beater Name Role Phone Dahlia Crane MD Primary Care Provider [phone] Reason for Visit * Reason Comments Med Refill Encounter Details Date Type Department Care Team (Late st Contact Info) Description 07/19/2023 Refill [facility] [address] [place] [address] Kaila Osuna, [employer] RO[employer]ER [address] [place] [address] Social History Tobacco Use Types Packs/Day Years Used Date Smoking Tobacco: Never Smokeless Tobacco: Never PHQ-2 Answer Date Recorded Patient Health Questionnaire-2 Score 0 05/09/2023 PHQ-9 Answer Date Recorded Patient Health Questionnaire-9 Score 16 08/09/2022 PHQ-2A Answer Date Recorded Patient Health Questionnaire-2 Score 0 04/06/2023 Sex and Gender Information Value Date Recorded Sex Assigned at Not on file Legal Sex Male 7:49 PM EDT Gender Identity Not on file Sexual Orientation Not on file documented as of this encounter Miscellaneous Notes * Telephone Encounter - Joanna Serna, PharmD - 07/19/2023 12:13 PM EDT Per protocol, 1 medication(s), olmesartan, has been approved for 90 day supply with 1 refill(s) to [facility] pharmacy. Please keep upcoming appointment 11/07/2023 for additional refills. Medications have been pended forrefill at upcoming appointment. documented in this encounter Plan of Treatment Not on file documented as of this encounter Visit Diagnoses Not on filedocumented in this encounter Additional Health Concerns Assessment Noted Time PHQ-9 Depression Total Score: 16 023 9:41 AM EDT A fall risk assessment has been complete d for the patient 05/09/2023 7:58 AM EST A Body Mass Index follow-up plan has been documented for the patient 05/09/2023 12:04 PM EST documented as of this encounter Care Teams Welt Beater Relationship Specialty Start Date End Date Dahlia Crane MD [address] [place] [address] PCP - General 09/11/20 documented as of this encounter
--- OUTSIDE RECORDS SUMMARY | 2024-03-19 13:31 | XMS_ITS | Encounter Summary ---
Author Organization [facility] Address [address] [place] [address] Care Team Providers Care Unified Communications Architect Name Role Phone Dahlia Crane MD Primary Care Provider [phone] Citlali Freire WASH PLANT OPERATOR Unavailable Unavail able Reason for Visit * Reason Onset Date Comments HCN Clinical Concern/Question 04/03/2023 Ov erbook req Encounter Details Date Type Department Care Team (Late st Contact Info) Description 04/03/2023 Telephone [facility] [address] [place] [address] Dahlia Crane MD [address] [place] [address] HCN Clinical Concern/Question (Overbook req) Social History Tobacco Use Types Packs/Day Years [...] encounter Miscellaneous Notes * Telephone Encounter - Priya Dean - 04/03/2023 10:12 AM EST booked * Telephone Encounter - aMritza Strange - 04/03/2023 9:47 AM EST Patient Phone Message Reason for Call:had change in vision; clammy hands; lightheaded and high blood pressure yesterday. Asking to be seen by PCP. He cancelled his procedure but didn't go to the ER Best contact number and optimal time of day to reach caller: [phone] Note: Please do not reply to this message. Follow-up communication and further actions as a result of this message need to be communicated with the patient directly, if the patient is not active onMyChart. If the patient is active on MyChart, they will receive notification of the communication/outcome via [employer]. documented in this encounter Plan of Treatment Not on file documented as of this encounter Visit Diagnoses Not on filedocumented in this encounter Additional Health Concerns Assessment Noted Time PHQ-9 Depression Total Score: 16 023 9:41 AM EDT A fall risk assessment has been complete d for the patient 02/16/2023 10:25 AM EDT A Body Mass Index follow-up plan has been documented for the patient 02/16/2023 11:21 AM EDT documented as of this encounter Care Teams Unified Communications Architect Relationship Specialty Start Date End Date Dahlia Crane MD [address] [place] [address] PCP - General 09/11/20 Citlali Freire LPN [employer] [place] [address] TCM Nurse 04/25/23 04/27/23 documented as of this encounter
--- OUTSIDE RECORDS SUMMARY | 2024-03-19 13:31 | XMS_ITS | Encounter Summary ---
Author Organization Healthcare Address [address] [place] [address] Care Team Providers Care Occupational Health Physician Name Role Phone Dahlia Crane MD Primary Care Provider [phone] Citlali Freire SEISMIC SURVEY ASSISTANT Unavailable Unavail able Laura Bauer SEISMIC SURVEY ASSISTANT Unavailable Unavailabl e Encounter Details Date Type Department Care Team (Late st Contact Info) Description 02/16/2023 Outside Procedure External Location [address] [place] [address] Dahlia Crane MD [address] [place] [address] Social History Tobacco Use Types Packs/Day Years Used Date Smoking Tobacco: Never Smokeless Tobacco: Never PHQ-2 Answer Date Recorded Patient Health Questionnaire-2 Score 0 02/16/2023 PHQ-9 Answer Date Recorded Patient Health Questionnaire-9 Score 16 08/09/2022 PHQ-2A Answer Date Recorded Patient Health Questionnaire-2 Score 0 02/16/2023 Sex and Gender Information Value Date Recorded Sex Assigned at Not on file Legal Sex Male 7:49 PM EDT Gender Identity Not on file Sexual Orientation Not on file documented as of this encounter Plan of Treatment Not on file documented as of this encounter Procedures Procedure Name Priority Date/Time Associated Diagnosis Comments CT ABDOMEN PELVIS W IV CONTRAST 02/16/2023 1:58 PM EDT documented in this encounter Results * CT Abdomen Pelvis w IV Contrast (02/16/2023 1:58 PM EDT) Anatomical Region Laterality Modality Abdomen, Pelvis Computed Tomogra phy 02/16/2023 1:58 PM EDT Narrative 02/16/2023 4:32 PM EDT [facility] [address] [place] [address] Name: HARLEY FOSTER Exam Date: 02/16/2023 : 1955 Age 67 Gender: M Physician: Dahlia Crane Facility: [facility] Facility HSV: Outpatient Exam: CT ABD PEL W/ (IV ??ORAL) CT ABDOMEN AND PELVIS WITH CONTRAST HISTORY: Ashley-umbilical abdominal pain, possible hernia. COMPARISON: December 04, 2009. TECHNIQUE: Axial images were obtained from the lung bases through the pubic symphysis by computed tomography after the administration of IV contrast. Oral contrast was also administered. This study was performed with techniques to keep radiation doses as low as reasonably achievable, (ALARA). Individualized dose reduction techniques using automated exposure control or adjustment of mA and/or kV according to the patient's size were employed. FINDINGS: ABDOMEN: The lung bases are clear. Heart size is normal. The liver is unremarkable. The spleen is normal. The pancreas is normal. No adrenal mass is present. There are multiple punctate nonobstructing stones in the right kidney. Left kidney is unremarkable. There is no free fluid or adenopathy. The aorta is normal in caliber. PELVIS: Bilateral total hip arthroplasties limit evaluation of the lower pelvis due to extensive streak artifact. There is a fat-containing umbilical hernia with mild inflammatory changes seen in the adjacent peritoneal fat. Findings are best seen on images 49 through 53 of series 2. Patient is status post appendectomy. The urinary bladder is unremarkable. Prostate is mildly enlarged. There is no pelvic free fluid or adenopathy. IMPRESSION: Fat-containing umbilical hernia with inflammatory changes seen within the contained fat in the hernia, as well as in the adjacent peritoneal fat. Mild prostatomegaly. The films were reviewed, interpreted, and dictated by Dr. Wilman Duarte Transcribed by Bárbara Zhang PA-C Dictated By: ??Wilman Duarte Transcribed By: Wilman Duarte Transcribed On: 02/16/2023 4:20 PM Electronically signed by: Wilman Duarte 02/16/2023 Thank you for referring HARLEY FOSTER to [facility]. Legally authenticated by MYCHAL MARCUM Garland 2023-02-16 16:20:46 Procedure Note Provider, [place] Tamms - 02/16/2023 [address] [place] [address] Name: HARLEY FOSTER Exam Date: 02/16/2023 : 1955 Age 67 Gender: M Physician: Dahlia Crane Facility: [facility] Facility HSV: Outpatient Exam: CT ABD PEL W/ (IV ORAL) CT ABDOMEN AND PELVIS WITH CONTRAST HISTORY: Ashley-umbilical abdominal pain, possible hernia. COMPARISON: December 04, 2009. TECHNIQUE: Axial images were obtained from the lung bases through thepubic symphysis by computed tomography after the administration of IV contrast.Oral contrast was also administered. This study was performed with techniquesto keep radiation doses as low as reasonably achievable, (ALARA).Individualized dose reduction techniques using automated exposure control or adjustmentof mA and/or kV according to the patient's size were employed. FINDINGS: ABDOMEN: The lung bases are clear. Heart size is normal. The liver is unremarkable. The spleen is normal. The pancreas is normal. No adrenalmass is present. There are multiple punctate nonobstructing stones in the right kidney. Left kidney is unremarkable. There is no free fluid or adenopathy.The aorta is normal in caliber. PELVIS: Bilateral total hip arthroplasties limit evaluation of the lower pelvis due to extensive streak artifact. There is a fat-containingumbilical hernia with mild inflammatory changes seen in the adjacent peritonealfat. Findings are best seen on images 49 through 53 of series 2. Patient isstatus post appendectomy. The urinary bladder is unremarkable. Prostate ismildly enlarged. There is no pelvic free fluid or adenopathy. IMPRESSION: Fat-containing umbilical hernia with inflammatory changesseen within the contained fat in the hernia, as well as in the adjacentperitoneal fat. Mild prostatomegaly. The films were reviewed, interpreted, and dictated by Dr. Cheng Transcribed by Bárbara Zhang PA-C Dictated By: Wilman Duarte Transcribed By: Wilman Duarte Transcribed On: 02/16/2023 4:20 PM Electronically signed by: Wilman Duarte 02/16/2023 Thank you for referring HARLEY FOSTER to [facility]. Legally authenticated by MYCHAL Haque 2023-02-16 16:20:46 us Dahlia Crane MD IMG CT PROCEDURES Final Resul t documented in this encounter Visit Diagnoses Not [...] documented as of this encounter Care Teams Occupational Health Physician Relationship Specialty Start Date End Date Dahlia Crane MD [address] [place] [address] PCP - General 09/11/20 Citlali Freire LPN [employer] [place] [address] TCM Nurse 04/25/23 04/27/23 Laura Bauer LPN [facility] TCM Nurse Internal Medicine 10/24/23 11/23/23 documented as of this encounter
--- OUTSIDE RECORDS SUMMARY | 2024-03-19 13:31 | XMS_ITS | Encounter Summary ---
Author Organization Healthcare Address [address] [place] [address] Care Team Providers Care Professor Of Violin Name Role Phone Dahlia Crane MD Primary Care Provider [phone] Reason for Visit * Reason Onset Date Comments HCN Clinical Concern/Question 02/17/2023 orlin kohler Encounter Details Date Type Department Care Team (Late st Contact Info) Description 02/17/2023 Telephone [facility] [address] [place] [address] Dahlia Crane MD [address] [place] [address] HCN Clinical Concern/Question (results) Social History Tobacco Use Types Packs/Day Years [...] * Telephone Encounter - Kallie Avalos - 02/17/2023 12:[address] Crane spoke to patient * Telephone Encounter - Maritza Strange - 02/17/2023 12:13 PM EDT Patient Phone Message Reason for Call:request CT results from yest at [facility] Best contact number and optimal time of day to reach caller: [phone] Note: Please do not reply to this message. Follow-up communication and further actions as a result of this message need to be communicated with the patient directly, if the patient is not active onMyChart. If the patient is active on MyChart, they will receive notification of the communication/outcome via [employer]. documented in this encounter Plan of Treatment [...] documented as of this encounter Care Teams Professor Of Violin Relationship Specialty Start Date End Date Dahlia Crane MD [address] [address] PCP - General 09/11/20 documented as of this encounter
--- OUTSIDE RECORDS SUMMARY | 2024-03-19 13:31 | XMS_ITS | Encounter Summary ---
Author Organization Healthcare Address [address] [place] [address] Care Team Providers Care Account Retention Representative Name Role Phone Dahlia Crane MD Primary Care Provider [phone] Encounter Details Date Type Department Care Team (Latest Contact Info) Description 05/09/2023 Travel Social History Tobacco Use Types Packs/Day [...] documented as of this encounter Care Teams Account Retention Representative Relationship Specialty Start Date End Date Dahlia Crane MD [address] [place] [address] PCP - General 09/11/20 documented as of this encounter
--- OUTSIDE RECORDS SUMMARY | 2024-03-19 13:31 | XMS_ITS | Encounter Summary ---
Author Organization Healthcare Address [address] [place] [address] Care Team Providers Care Prepared Foods Production Team Member Name Role Phone Dahlia Crane MD Primary Care Provider Encounter Details Date Type Department Care Team (Late st Contact Info) Description 09/20/2023 Telephone [facility] [address] [place] [address] Tequila Kay, PharmD [address] [place] [phone] Social History Tobacco Use Types Packs/Day Years [...] encounter Miscellaneous Notes * Telephone Encounter - Tequila Strange PharmD - 09/20/2023 12:37 PM EDT Patient was referred to clinical pharmacist by Dr. Dahlia Crane for follow up and medication management of HTN. Called patient today to follow up for HTN medication management. Patient did not answer, so left voicemail to return call to [phone] or [phone]. Tequila Strange PharmD, BCACP [facility] [address] [facility] [address] documented in this encounter Plan of Treatment [...] documented as of this encounter Care Teams Prepared Foods Production Team Member Relationship Specialty Start Date End Date Dahlia Crane MD [address] [place] [phone] PCP - General 09/11/20 documented as of this encounter
--- OUTSIDE RECORDS SUMMARY | 2024-03-19 13:31 | XMS_ITS | Encounter Summary ---
Author Organization [facility] Address [address] [place] [address] Care Team Providers Care Gold Miner Name Role Phone Dahlia Crane MD Primary Care Provider [phone] Reason for Referral * Consultation (Routine) - Authorized Specialty Diagnoses / Procedures Referred By Marley t Referred To Contact General Surgery Diagnoses Umbilical hernia with obstruction, without gangrene Dahlia Crane MD [address] [place] [address] Phone: tel: fax: Referral ID Status Reason Start Date Expiration Date Visits Requested Visits Authorized [id number] Authorized Specialty Services Required 3 08/18/2024 1 1 Encounter Details Date Type Department Care Team (Late st Contact Info) Description 02/17/2023 Orders Only [facility] [address] [place] [address] Dahlia Crane MD [address] [place] [address] Umbilical hernia with obstruction, without gangrene (Primary Dx) Social History Tobacco Use Types Packs/Day Years [...] as of this encounter Plan of Treatment Scheduled Referrals Name Type Priority Associated Diagnoses Order Schedule Ambulatory referral to General Surgery Outpatient Referral Routine Umbilical hernia with obstruction, without gangrene 1 Occurrences starting 02/17/2023 until 08/18/2024 documented as of this encounter Visit Diagnoses Diagnosis Umbilical hernia with obstruction, without gangrene- Primary Umbilical hernia with obstruction documented in this encounter Additional Health Concerns Assessment Noted Time PHQ-9 Depression Total Score: 16 023 9:41 AM EDT A fall risk assessment has been complete d for the patient 02/16/2023 10:25 AM EDT A Body Mass Index follow-up plan has been documented for the patient 02/16/2023 11:21 AM EDT documented as of this encounter Care Teams Gold Miner Relationship Specialty Start Date End Date Dahlia Crane MD [address] [place] [address] PCP - General 09/11/20 documented as of this encounter
--- OUTSIDE RECORDS SUMMARY | 2024-03-19 13:31 | XMS_ITS | Encounter Summary ---
Author Organization Healthcare Address [address] [place] [address] Care Team Providers Care Commercial Interior Designer Name Role Phone Dahlia Crane MD Primary Care Provider [phone] Encounter Details Date Type Department Care Team (Late st Contact Info) Description 02/01/2024 Telephone [facility] [address] [place] [address] Tequila Kay, PharmD [address] [place] [phone] Social History Tobacco Use Types Packs/Day [...] often do you attend chur ch or sikhism services? More than 4 times per year 10/26/2023 Do you belong to any clubs o r organizations such as spiritism groups, unions, fraternal or athletic groups, or [...] Recorded Patient Health Questionnaire-2 Score 1 11/09/2023 [facility] - Occupational Stress Questionnaire Answer Date [...] * Telephone Encounter - Kallie Avalos - 02/12/2024 10:18 AM EDT Scheduled with Kaila on Monday * Telephone Encounter - Tequila Kay, PharmD - 02/12/2024 9:47 AM EDT Patient called back to clinical pharmacist today stating that surgeon's office did not offer much assistance, and he would like to be seen in our clinic for evaluation. Prefers to be seen by Dr. Crane, but will see a different provider if Dr. Crane is not available this week. Reports continued abdominal pain and soft, frequent stool. Tequila Souza, HernánD, BCACP * Telephone Encounter - Viktoria Gupta - 02/01/2024 2:00 PM EDT Patient stated sx about the same-had 2 days where BM was solid-onging 2-3 weeks- getting ready to contact the surgeon-stated back pain can be severe at times * Telephone Encounter - Dahlia Crane MD - 02/01/2024 11:51 AM EDT Call and check on him please, make sure he contacted the surgeon * Telephone Encounter - Tequila Kay PharmD - 02/01/2024 10:34 AM EDT Patient returned call. Patient reports BP remains 120s/70-80s. Denies any trends up in BP range. Denies s/sx of hypotension or hypertension. Denies any chest pain, SOA, fatigue, weakness, orthopnea, edema. Patient has beenoff of olmesartan for several months. Instructed patient to continue to monitor BP and to notify clinic of BP trends up. Patient expressed understanding. Patient also mentions increased diarrhea since hernia repair in the spring. Reports yesterday he had a BM every hour and had only eaten oatmeal. Patient feels like omeprazole increased diarrhea, so he has stopped that. He was also started on fluoxetine around the same time for mood and states he has not been consistently taking that as well. Both omeprazole and fluoxetine can cause diarrhea. Patient also reports abdominal pain around site of hernia repair that radiates to the back at times. Patient also planning to contact surgery center where he had hernia repair but will also notify Dr. Crane as well. Tequila Souza, HernánD, BCACP [facility] [address] [facility] [phone] * Telephone Encounter - Tequila Kay PharmD - 02/01/2024 10:05 AM EDT Patient was referred to clinical pharmacist by Dr. Dahlia Crane for follow up and medication management of HTN. Called patient today to follow up on home BP readings since stopping BP medication. Patient did not answer, so left voicemail to return call to [phone] or [phone]. Tequila Souza, PharmD, BCACP [facility] [address] [facility] [address] documented in this encounter Plan [...] documented as of this encounter Care Teams Commercial Interior Designer Relationship Specialty Start Date End Date Dahlia Crane MD [address] [place] [address] PCP - General 09/11/20 documented as of this encounter
--- OUTSIDE RECORDS SUMMARY | 2024-03-19 13:31 | XMS_ITS | Encounter Summary ---
Author Organization Healthcare Address [address] [place] [id number] Care Team Providers Care Medical Social Worker Name Role Phone Dahlia Crane MD Primary Care Provider [phone] Laura Bauer LPN Unavailable Unavailabl e Encounter Details Date Type Department Care Team (Late st Contact Info) Description 11/20/2023 Orders Only [facility] [address] [place] [address] Dahlia Crane MD [address] [place] [address] Type 2 diabetes mellitus with hyperglycemia, unspecified whether termite exterminator insulin use ([facility]) (Primary Dx); Hyperlipidemia, unspecified hyperlipidemia type Social History Tobacco Use Types Packs/Day Years [...] often do you attend chur ch or mandaeism services? More than 4 times per year 10/26/2023 Do you belong to any clubs o r organizations such as mandaen groups, unions, fraternal or athletic groups, or [...] Recorded Patient Health Questionnaire-2 Score 1 11/09/2023 [facility] - Occupational Stress Questionnaire Answer Date [...] place to sleep or slept in a nursing home (including now)? No 10/26/2023 PHQ-9 Answer [...] on file documented as of this encounter Results * Hemoglobin A1c (11/20/2023 11:29 AM EDT) Hemoglobin A1c 5.5 <5.7 % 11/20/2023 7:36 PM EDT [facility] Blood Venous blood specimen / [...] Adults <6.0% Children and Adolescents <7.5% Source: ??[place] [employer]. Standards of medical care in diabetes,2017. Diabetes Care.2017:40 (suppl 1):S1-S135. HbA1c assay performed by an ion-exchange chromatography method that is certified traceable to the DCCT. us Dahlia Crane MD LAB BLOOD ORDERABLES Final Re sult [facility] [address] [place] [address] documented in this encounter Visit Diagnoses Diagnosis Type 2 diabetes mellitus with hyperglycemia, unspecified whether nursing home insulin use ([facility])- Primary Hyperlipidemia, unspecified hyperlipidemia type documented in this encounter Additional Health Concerns Assessment Noted Time PHQ-9 Depression Total Score: 16 023 9:41 AM EDT A fall risk assessment has been complete d for the patient 11/09/2023 9:52 AM EDT A Body Mass Index follow-up plan has been documented for the patient 11/09/2023 10:56 AM EDT documented as of this encounter Care Teams Medical Social Worker Relationship Specialty Start Date End Date Dahlia Crane MD [address] [place] [address] PCP - General 09/11/20 Laura Bauer LPN [facility] TCM Nurse Internal Medicine 10/24/23 11/23/23 documented as of this encounter
--- OUTSIDE RECORDS SUMMARY | 2024-03-19 13:31 | XMS_ITS | Encounter Summary ---
Author Organization Healthcare Address [address] [place] [address] Care Team Providers Care Associate Professor Of Library Science Name Role Phone Dahlia Crane MD Primary Care Provider [phone] Laura Bauer LPN Unavailable Unavailabl e Encounter Details Date Type Department Care Team (Late st Contact Info) Description 11/23/2023 Patient Outreach POPULATION [address] [address] Laura Bauer LPN [facility] Social History Tobacco Use Types Packs/Day Years [...] week 10/26/2023 How often do you attend [facility] or restorationism services? More than 4 times per year 10/26/2023 Do you belong to any clubs o r organizations such as latter-day groups, unions, fraternal or athletic groups, or [...] Recorded Patient Health Questionnaire-2 Score 1 11/09/2023 [facility] - Occupational Stress Questionnaire Answer Date [...] place to sleep or slept in a assisted (including now)? No 10/26/2023 PHQ-9 Answer Date Recorded Patient Health Questionnaire-9 Score 16 08/09/2022 Utilities Answer Date Recorded In the past 12 months has VTM, gas, oil, or water [employer] threatened to shut off services in your [...] documented as of this encounter Care Teams Associate Professor Of Library Science Relationship Specialty Start Date End Date Dahlia Crane MD [address] [place] [address] PCP - General 09/11/20 Laura Bauer LPN [facility] TCM Nurse Internal Medicine 10/24/23 11/23/23 documented as of this encounter
--- OUTSIDE RECORDS SUMMARY | 2024-03-19 13:31 | XMS_ITS | Encounter Summary ---
Author Organization Healthcare Address [address] [place] [id number] Care Team Providers Care Glove Machine Operator Name Role Phone Dahlia Crane MD Primary Care Provider [phone] Encounter Details Date Type Department Care Team (Late st Contact Info) Description 08/18/2022 Telephone [facility] [address] [place] [address] Dahlia Crane MD [address] [place] [address] Social History Tobacco Use Types Packs/Day Years Used Date Smoking Tobacco: Never Smokeless Tobacco: Never PHQ-2 Answer Date Recorded Patient Health Questionnaire-2 Score 6 08/09/2022 PHQ-9 Answer Date Recorded Patient Health Questionnaire-9 [...] suspected to have Coronavirus/COVID-19? No / Unsure 08/09/2022 9:29 AM EDT documented as of this encounter Miscellaneous Notes * Telephone Encounter - Mendel Nicole - 08/18/2022 11:19 AM EDT Patient Phone Message Reason for Call: Patient states returning a call from the clinical staff. Best contact number and optimal time of day to reach caller: [phone] Note: Please do not reply to this message. Follow-up communication and further actions as a result of this message need to be communicated with the patient directly, if the patient is not active onMyChart. If the patient is active on MyChart, they will receive notification of the communication/outcome via Helicommhart. documented in this encounter Plan of Treatment Not on file documented as of this encounter Visit Diagnoses Not on filedocumented in this encounter Additional Health Concerns Assessment Noted Time PHQ-9 Depression Total Score: 16 023 9:41 AM EDT A fall risk assessment has been complete d for the patient 08/09/2022 9:41 AM EDT A Body Mass Index follow-up plan has been documented for the patient 08/09/2022 10:22 AM EDT documented as of this encounter Care Teams Glove Machine Operator Relationship Specialty Start Date End Date Dahlia Crane MD [address] [place] [address] PCP - General 09/11/20 documented as of this encounter
--- OUTSIDE RECORDS SUMMARY | 2024-03-19 13:31 | XMS_ITS | Encounter Summary ---
Author Organization Healthcare Address [address] [place] [address] Care Team Providers Care Bark Scaler Name Role Phone Dahlia Crane MD Primary Care Provider [phone] Reason for Visit * Reason Onset Date Comments [facility] Clinical Concern/Question 01/23/2023 Jamaal hubbard Encounter Details Date Type Department Care Team (Late st Contact Info) Description 01/23/2023 Telephone [facility] [address] [place] [address] Dahlia Crane MD [address] [place] [address] HCN Clinical Concern/Question (Triage ) Social History Tobacco Use Types Packs/Day Years [...] * Telephone Encounter - Tierra Leo - 01/23/2023 3:54 PM EDT We received ER notes, given to for review, then will fax to ENT Dr. Dominique * Telephone Encounter - Nicolasa Meyer RN - 01/23/2023 3:20 PM EDT Ordered, ER records and colonoscopy records requested * Telephone Encounter - Dahlia Crane MD - 01/23/2023 1:10 PM EDT Ok, we have no notes to send so if he needs that then will need appt here * Telephone Encounter - Iraj Messer - 01/23/2023 12:11 PM EDT Okay for patient have ENT referral * Telephone Encounter - Christelle Srtange - 01/23/2023 11:47 AM EDT Clinical Concern/Question Reason for Call: Calling to get a referral to ENT for an ulcer on his uvula, feels like it's layingon his tongue, after going to the [facility] ED on 01/20/2023. Patient had a colonoscopy on 01/19/2023 and woke up during the procedure, was given steroids and mouth wash to keep from getting infection. Best contact number: [phone] (home) Optimal time of day to reach caller: ANYTIME Additional comments/information from caller: Please call to advise. Note: Please do not reply to this message. Follow-up communication and further actions as a result of this message need to be communicated with the patient directly, if the patient is not active onMyChart. If the patient is active on MyChart, they will receive notification of the communication/outcome via Evolver. documented in this encounter Plan of Treatment [...] documented as of this encounter Care Teams Bark Scaler Relationship Specialty Start Date End Date Dahlia Crane MD [address] [place] [address] PCP - General 09/11/20 documented as of this encounter
--- OUTSIDE RECORDS SUMMARY | 2024-03-19 13:31 | XMS_ITS | Encounter Summary ---
Author Organization Healthcare Address [address] [place] [address] Care Team Providers Care Wellness Nurse Name Role Phone Dahlia Crane MD Primary Care Provider [phone] Reason for Visit * Reason Comments Hypertension Encounter Details Date Type Department Care Team (Late st Contact Info) Description 04/06/2023 10:40 AM EST Office Visit [facility] [address] [place] [address] Kaila Osuna, CABLE TESTERS HELPER [address] [place] [address] Essential (primary) hypertension (Primary Dx) Social History Tobacco Use Types Packs/Day Years Used Date Smoking Tobacco: Never Smokeless Tobacco: Never Tobacco Cessation:Counseling Given: Not Answered PHQ-2 Answer Date Recorded Patient Health Questionnaire-2 [...] Sign Reading Time Taken Comments Blood Pressure 140/88 04/06/2023 10:32 AM EST Pulse 80 04/06/2023 10:32 AM EST Temperature - - Respiratory Rate 18 04/06/2023 10:32 AM EST Oxygen Saturation 98% 04/06/2023 10:32 AM EST Inhaled Oxygen Concentration - - Weight 103 kg (227 lb 1.2 oz) 04/06/2023 10:32 A M EST Height 171.5 cm (5' 7.5 ) 04/06/2023 10:32 AM ES T Body Mass Index 35.04 04/06/2023 10:32 AM EST documented in this encounter Miscellaneous Notes * Progress Notes - Kaila Osuna, CABLE TESTERS HELPER - 04/06/2023 10:40 AM EST Subjective Patient ID: Barrie Tovar is a 68 y.o. male. Chief Complaint Patient presents with Hypertension HPI Barrie is a 68 y.o. who presents to the clinic today with acute concern for elevated blood pressure. Patient called in to our office on 04/03 with concern for a change in vision, clammy hands, lightheadedness, and high blood pressure. Went to rig supervisor who mentioned symptoms correlate with migraine, but eyes looked okay. He is concerned the migraine may have been related to his blood pressure being too high. Blood pressure 140/88 in office today. Brought BP log into office today from home with the following readings: 185/92, 148/72, 161/91, 141/80, 148/81, 144/81, 136/83, and 144/88. Denies having any recent related symptoms including chest pain, shortness of breath, palpitations, or flushing. Has taken antihypertensives in the past, but was able to come off of this medication with intentional weight loss. The following portions of the chart were reviewed this encounter and updated as appropriate: Tobacco Allergies Meds Problems Med Hx Surg Hx Fam Hx Current Outpatient Medications: DULoxetine (Cymbalta) [address] capsule, Take 1 capsule (30 mg) by mouth 1 (one) time each day. Do not crush or chew., Disp: 90 capsule, Rfl: 3 olmesartan (BENIcar) 20 MG tablet, Take 1 tablet (20 mg) by mouth 1 (one) time each day., Disp: 30 tablet, Rfl: 2 Review of Systems A 14 point ROS reviewed and is otherwise negative except as per HPI. Objective Blood pressure (!) 140/88, pulse 80, resp. rate 18, height 1.715 m (5' 7.5 ), weight 103 kg (227 lb1.2 oz), SpO2 98 %. Body mass index is 35.04 kg/m??. Physical Exam Vitals reviewed. Constitutional: General: He is not in acute distress. Appearance: Normal appearance. Neck: Vascular: No carotid bruit. Cardiovascular: Rate and Rhythm: Normal rate and regular rhythm. Pulmonary: Effort: Pulmonary effort is normal. Breath sounds: Normal breath sounds. No wheezing, rhonchi or rales. Musculoskeletal: Right lower leg: No edema. Left lower leg: No edema. Neurological: Mental Status: He is alert and oriented to person, place, and time. Psychiatric: Mood and Affect: Mood normal. Behavior: Behavior normal. Assessment/Plan Diagnoses and all orders for this visit: Essential (primary) hypertension - olmesartan (BENIcar) 20 MG tablet; Take 1 tablet (20 mg) by mouth 1 (one) time each day. Chronic condition, had previously been well controlled with lifestyle factors, but is now beginningto go back up. We discussed possibility of stress being a factor. Patient agrees this may be the case. Due to average readings greater than 130/90, encouraged consideration to restart antihypertensive medication. Patient agreeable to this plan. We discussed lifestyle factors that can assist in lowering blood pressure as well. Will order new prescription medication to begin to help control symptoms. Risks vs benefits as well as possible adverse effects discussed with patient. Will request Fátima Adrian, follow up with patient in 2 weeks to assess readings. Encouraged patient to continue checking readings at home and keep log to review with her when she calls. Kaila Osuna APRN Note to patient: The Century Cures Act makes medical notes like these [...] and the clinical opinion of the practitioner. documented in this encounter Plan of Treatment Not on file documented as of this encounter Visit Diagnoses Diagnosis Essential (primary) hypertension- Primary Unspecified essential hypertension documented in this encounter Additional Health Concerns Assessment Noted Time PHQ-9 Depression Total Score: 16 08/09/ 023 9:41 AM EDT A fall risk assessment has been complete d for the patient 04/06/2023 10:33 AM EST A Body Mass Index follow-up plan has been documented for the patient 04/06/2023 12:05 PM EST documented as of this encounter Care Teams Wellness Nurse Relationship Specialty Start Date End Date Dahlia Crane MD [address] [place] [id number] PCP - General 09/11/20 documented as of this encounter
--- OUTSIDE RECORDS SUMMARY | 2024-03-19 13:31 | XMS_ITS | Encounter Summary ---
Author Organization Healthcare Address [address] [place] [address] Care Team Providers Care Special Procedures Tech Name Role Phone Dahlia Crane MD Primary Care Provider [phone] Encounter Details Date Type Department Care Team (Latest Contact Info) Description 04/06/2023 Travel Social History Tobacco Use Types Packs/Day [...] documented as of this encounter Care Teams Special Procedures Tech Relationship Specialty Start Date End Date Dahlia Crane MD [address] [place] [address] PCP - General 09/11/20 documented as of this encounter
--- OUTSIDE RECORDS SUMMARY | 2024-03-19 13:31 | XMS_ITS | Encounter Summary ---
Author Organization Healthcare Address [address] [place] [address] Care Team Providers Care Disability Manager Name Role Phone Dahlia Crane MD Primary Care Provider [phone] Laura Bauer LPN Unavailable Unavailabl e Encounter Details Date Type Department Care Team (Latest Contact Info) Description 11/09/2023 Travel Social History Tobacco Use Types Packs/Day [...] How often do you attend chur or christianity services? More than 4 times per year 10/26/2023 Do you belong to any clubs o r organizations such as yazdanism groups, unions, fraternal or athletic groups, or [...] Recorded Patient Health Questionnaire-2 Score 1 11/09/2023 [facility] - Occupational Stress [...] place to sleep or slept in a senior living (including now)? No 10/26/2023 PHQ-9 Answer Date [...] documented as of this encounter Care Teams Disability Manager Relationship Specialty Start Date End Date Dahlia Crane MD [address] [place] [address] PCP - General 09/11/20 Laura Bauer LPN [facility] TCM Nurse Internal Medicine 10/24/23 11/23/23 documented as of this encounter
--- OUTSIDE RECORDS SUMMARY | 2024-03-19 13:31 | XMS_ITS | Encounter Summary ---
Author Organization Healthcare Address [address] [place] [address] Care Team Providers Care Bond Manager Name Role Phone Dahlia Crane MD Primary Care Provider [phone] Encounter Details Date Type Department Care Team (Latest Contact Info) Description 02/16/2023 Travel Social History Tobacco Use Types Packs/Day [...] documented as of this encounter Care Teams Bond Manager Relationship Specialty Start Date End Date Dahlia Crane MD [address] [place] [address] PCP - General 09/11/20 documented as of this encounter
--- OUTSIDE RECORDS SUMMARY | 2024-03-19 13:31 | XMS_ITS | Encounter Summary ---
Author Organization Healthcare Address [address] [id number] Care Team Providers Care Senior Electrical Engineer Name Role Phone Dahlia Crane MD Primary Care Provider [phone] Encounter Details Date Type Department Care Team (Late st Contact Info) Description 08/18/2022 Orders Only [facility] [address] [place] [address] Dahlia Crane MD [address] [place] [address] Screening for colon cancer (Primary Dx) Social History Tobacco Use Types [...] AM EDT documented as of this encounter Plan of Treatment Not on file documented as of this encounter Visit Diagnoses Diagnosis Screening for colon cancer- Primary Special screening for malignant neoplasms, colon documented in this encounter Additional Health Concerns Assessment Noted Time PHQ-9 Depression Total Score: 16 023 9:41 AM EDT A fall risk assessment has been complete d for the patient 08/09/2022 9:41 AM EDT A Body Mass Index follow-up plan has been documented for the patient 08/09/2022 10:22 AM EDT documented as of this encounter Care Teams Senior Electrical Engineer Relationship Specialty Start Date End Date Dahlia Crane MD [address] [place] [address] PCP - General 09/11/20 documented as of this encounter
--- OUTSIDE RECORDS SUMMARY | 2024-03-19 13:31 | XMS_ITS | Encounter Summary ---
Author Organization [facility] Address [address] [place] [address] Care Team Providers Care Staff Nuclear Medicine Technologist Name Role Phone Dahlia Crane MD Primary Care Provider [phone] Reason for Referral * Imaging (Routine) - Authorized Specialty Diagnoses / Procedures Referred By Mraley mcdowell Referred To Contact Gastroenterology Diagnoses Colon cancer screening Procedures Colonoscopy Dahlia Crane MD [address] [place] [address] Phone: tel: fax: Referral ID Status Reason Start Date Expiration Date Visits Requested Visits Authorized [id number] Authorized Specialty Services Required 12/09/2022 06/09/2024 1 1 Encounter Details Date Type Department Care Team (Late st Contact Info) Description 12/09/2022 Orders Only [facility] [address] [place] [address] Caro Gonzales Colon cancer screening (Primary Dx) Social History Tobacco Use Types [...] of this encounter Plan of Treatment Scheduled Orders Name Type Priority Associated Diagnoses Orde r Schedule Colonoscopy Endoscopy Routine Colon cancer screening Expected: 12/09/2022 (Approximate), Expires: 06/11/2024 documented as of this encounter Visit Diagnoses Diagnosis Colon cancer screening- Primary Special screening for malignant neoplasms, colon [...] documented as of this encounter Care Teams Staff Nuclear Medicine Technologist Relationship Specialty Start Date End Date Dahlia Crane MD [address] [place] [address] PCP - General 09/11/20 documented as of this encounter
--- OUTSIDE RECORDS SUMMARY | 2024-03-19 13:31 | XMS_ITS | Encounter Summary ---
Author Organization Healthcare Address [address] [place] [address] Care Team Providers Care Night Shift Manager Name Role Phone Dahlia Crane MD Primary Care Provider [phone] Laura Bauer LPN Unavailable Unavailabl e Reason for Visit * Reason Comments Medicare Annual Wellness Visit Subsequen t Hypertension GERD Encounter Details Date Type Department Care Team (Late st Contact Info) Description 11/09/2023 10:00 AM EDT Office Visit [facility] [address] [place] [address] Dahlia Crane MD [address] [place] [address] Routine general medical examination at health care facility (Primary Dx); Essential (primary) hypertension; Major depressive disorder, recurrent, moderate (CMS/HCC); Gastroesophageal reflux disease without esophagitis Social History Tobacco Use Types Packs/Day Years Used Date Smoking Tobacco: Never Smokeless Tobacco: Never Tobacco Cessation:Counseling Given: Not Answered Humiliation, Afraid, Rape, and Kick questionnair e [...] How often do you attend chur or nondenominational services? More than 4 times per year 10/26/2023 Do you belong to any clubs o r organizations such as cheondoism groups, unions, fraternal or athletic groups, or [...] Recorded Patient Health Questionnaire-2 Score 1 [facility]09[facility] Questionnaire Answer Date [...] Sign Reading Time Taken Comments Blood Pressure 136/66 11/09/2023 9:50 AM EDT Pulse 65 11/09/2023 9:50 AM EDT Temperature - - Respiratory Rate - - Oxygen Saturation 99% 11/09/2023 9:50 AM EDT Inhaled Oxygen Concentration - - Weight 103 kg (227 lb) 11/09/2023 9:50 AM EDT Height 171.5 cm (5' 7.5 ) 11/09/2023 9:50 AM EDT Body Mass Index 35.03 11/09/2023 9:50 AM EDT documented in this encounter Miscellaneous Notes * Progress Notes - Dahlia Crane MD - 11/09/2023 10:00 AM EDT Images from the original note were not included. Subsequent Medicare Wellness Visit The ABC's of the Annual Wellness Visit Chief Complaint Patient presents with Medicare Annual Wellness Visit Subsequent Hypertension GERD Health risk assessment completed and reviewed with the patient. HPI: Harley Tovar is a 68 y.o. male who presents for a Subsequent Medicare Wellness Visit. Recent Hospitalizations: Hospitalization Have you been hospitalized since we last saw you?: No Current Medical Providers: Patient Care Team: Dahlia Crane MD as PCP - General Laura Bauer LPN as TCM Nurse (Internal Medicine) Seen Outside Provider? Have you seen a health care provider outside our clinic since we last saw you?: No Health Habits and Functional and Cognitive Screening: Health Habits (AWV) In general, how would you say your health is?: Excellent In general, how satisfied are you with your life?: Very Satisfied In the past 7 days, how much pain have you felt?: (!) Some In the past 7 days have you had any problems staying or falling asleep?: No In the past 7 days have you had problems with constipation?: No Do you usually exercise at least 30 minutes or more, 4 days a week?: Yes Do you usually eat a diet that has at least 4 servings of fruit & vegetables, includes whole grain & fiber and avoids other than occasional servings of high fat foods?: (!) No How would you describe the condition of your mouth and teeth (including false teeth or dentures)?: Excellent Do you always fasten your seat belt when you are in the car?: Yes Memory Do you or any of your friends or family members have any concerns about your memory?: No Six-Item Cognitive Screening Did the patient correctly repeat all three words: Yes What year is this?: Correct What month is this?: Correct What is the day of the week?: Correct What were the three objects I asked you to remember? Apple: Correct Table: Correct Gabi: Correct Total Total Incorrect: 0 Does the patient have evidence of cognitive impairment? No Activities Daily Living: Activities of Daily Living Screening In the past 7 days, did you need help from others to perform everyday activities such as eating, getting dressed, grooming, bathing, walking, or using the toilet?: No In the past 7 days, did you need help from others to take care of things such as laundry and housekeeping, banking, shopping, using the telephone, food preparation, transportation, or taking your ownmedications?: No Hearing and Visual Acuity: Hearing Do you have any problems with your hearing?: (!) Yes (ringing in ears) HHIE-S Hearing Handicap Inventory Screening Does a hearing problem cause you to feel embarrassed when you meet new people?: No Does a hearing problem cause you to feel frustrated when talking to members of your family?: No Do you have difficulty hearing when someone speaks in a whisper?: No Do you feel handicapped by a hearing problem?: No Does a hearing problem cause you difficulty when visiting friends, relatives, or neighbors?: No Does a hearing problem cause you to attend nondenominational services less often than you would like?: No Does a hearing problem cause you to have arguments with family members?: No Does a hearing problem cause you difficulty when listening to TV or radio?: No Do you feel that any difficulty with your hearing limits or hampers your personal or social life?: No Does a hearing problem cause you difficulty when in a restaurant with relatives or friends?: No HHIE-S Screening Score AWV: 0 Hearing/Eye Exam No results found. Home Risk Assessment: Home Risk Assessment AWV Have you fallen in the last year?: No falls in the last year or 1 fall with no injury in the last year Does your home have rugs in the hallway?: No Does your home have grab bars in the bathroom?: Yes Does you home have handrails on the stairs?: (!) No (No stairs) Does your home have good lighting?: Yes Do you know where to locate and how to properly use a first aid kit and fire extinguisher in case of an emergency?: Yes Compared to one year ago, the patient feels his physical health is unchanged and his mental health is worse. Depression Screen: Over the past 2 weeks, how often have you been bothered by any of the following problems? Little interest or pleasure in doing things: Not at all Feeling down, depressed, or hopeless: Several days Patient Health Questionnaire-2 Score: 1 If you checked off any problems on this questionnaire so far, How difficult have these problems made it for you to do your work, take care of things at home, or get along with other people?: Not difficult at all Past Medical/Family/Social History: Allergies Allergen Reactions Metoclopramide Other - please document in the comment field made me nervous Current Outpatient Medications: FLUoxetine (PROzac) 20 MG capsule, Take 1 capsule (20 mg) by mouth 1 (one) time each day., Disp: 90capsule, Rfl: 1 olmesartan (Benicar) 20 MG tablet, Take 1 tablet (20 mg) by mouth 1 (one) time each day. (Patient not taking: Reported on 10/26/2023), Disp: , Rfl: omeprazole (PriLOSEC) [address] capsule, Take 1 capsule (40 mg) by mouth 1 (one) time each day. Do not crush or chew., Disp: 90 capsule, Rfl: 0 History reviewed. No pertinent family history. Social History Socioeconomic History Marital status: Spouse [...] min Stress: No Stress Concern Present (10/26/2023) [employer] [facility] - Occupational Stress Questionnaire Feeling of Stress : Not at all Social Connections: Moderately Isolated (10/26/2023) Social Connection and Isolation Panel [NHANES] Frequency of Communication with Friends and Family: More than three times a week Frequency of Social Gatherings with Friends and Family: Twice a week Attends Restorationism Services: More than 4 times per year [...] Unstable Housing in the Last Year: No Past Surgical History: Procedure Laterality Date COLONOSCOPY N/A TOTAL HIP ARTHROPLASTY Bilateral TOTAL KNEE ARTHROPLASTY Left Patient Active Problem List Diagnosis Anxiety, generalized Arthritis Essential (primary) hypertension Obesity (BMI 30-39.9) Osteoarthritis of knee Osteoarthritis of right hip Objective ROS: Review of Systems Constitutional: Negative for fatigue, fever and unexpected weight change. HENT: Negative for congestion, ear pain, sinus pain, sore throat and tinnitus. Eyes: Negative for redness. Respiratory: Negative for cough and shortness of breath. Cardiovascular: Negative for chest pain. Blood pressure running low on current dose of olmesartan, stopped one-month ago, has been watching at home, running 130/80 range Gastrointestinal: Negative for abdominal pain, constipation, diarrhea and nausea. Reflux type symptoms are worsening, if he burps undigested food will come back up, long-term intermittent issue for him, previous EGDs have been fine, drinks significant alcohol up to 12 beers at a time maybe once a week, symptoms worse after this Genitourinary: Negative for difficulty urinating and hematuria. Musculoskeletal: Negative for arthralgias and back pain. Skin: Negative for rash. Neurological: Negative for dizziness and headaches. Psychiatric/Behavioral: Positive for dysphoric mood (Mood low, sad, cries at times, worse at night,puts on a front and hides it during the day, worse lately). The patient is not nervous/anxious. Vitals 12/08/2022 2:44 PM 02/16/2023 10:24 AM 04/06/2023 10:32 AM 05/09/2023 8:03 AM 08/23/2023 10:44 AM 09/06/2023 10:58 AM 11/09/2023 9:50 AM Vitals Systolic 136 126 140 132 127 136 136 Diastolic 82 86 88 82 72 77 66 Heart Rate 80 81 80 94 71 65 Resp 18 18 Height (cm) 171.5 cm 171.5 cm 171.5 cm 171.5 cm 171.5 cm Weight (kg) 98.2 kg 100.2 kg 103 kg 102.967 kg 102.967 kg BMI 33.41 kg/m2 34.09 kg/m2 35.04 kg/m2 35.03 kg/m2 35.03 kg/m2 BSA (m2) 2.16 m2 2.18 m2 2.21 m2 2.21 m2 2.21 m2 Visit Report Report Report Report Report Report The patient's weight is above average. The patient received The patient received dietary education because they have an above normal BMI. and The patient received exercise education because they havean above normal BMI. because they have an above normal BMI. Physical Exam Constitutional: General: He is not in acute distress. Appearance: Normal appearance. He is well-developed. He is not diaphoretic. HENT: Head: Normocephalic and atraumatic. Nose: Nose normal. Eyes: General: No scleral icterus. Pupils: Pupils are equal, round, and reactive to light. Neck: Thyroid: No thyromegaly. Vascular: No JVD. Cardiovascular: Rate and Rhythm: Normal rate and regular rhythm. Heart sounds: Normal heart sounds. No murmur heard. No friction rub. No gallop. Pulmonary: Effort: Pulmonary effort is normal. No respiratory distress. Breath sounds: Normal breath sounds. No wheezing or rales. Chest: Chest wall: No tenderness. Abdominal: General: Bowel sounds are normal. There is no distension. Palpations: Abdomen is soft. There is no mass. Tenderness: There is no abdominal tenderness. There is no rebound. Musculoskeletal: General: Normal range of motion. Cervical back: Normal range of motion and neck supple. Lymphadenopathy: Cervical: No cervical adenopathy. Skin: General: Skin is warm and dry. Neurological: Mental Status: He is alert and oriented to person, place, and time. Deep Tendon Reflexes: Reflexes normal. Psychiatric: Mood and Affect: Mood normal. Recent Lab Results: Glucose, Plasma (mg/dL) Date Value 05/26/2023 96 05/09/2023 127 (H) 03/28/2023 126 (H) 12/08/2022 96 08/09/2022 114 (H) Hemoglobin A1c (%) Date Value 12/08/2022 5.6 08/09/2022 5.2 04/18/2022 5.5 BUN, Plasma (mg/dL) Date Value 05/09/2023 13 12/08/2022 11 08/09/2022 11 External BUN (mg/dL) Date Value 02/16/2023 11 Creatinine, Plasma (mg/dL) Date Value 05/26/2023 0.89 05/09/2023 0.96 03/28/2023 0.95 12/08/2022 0.94 08/09/2022 0.76 (L) External Creatinine Blood (mg/dL) Date Value 02/16/2023 0.9 Cholesterol, Plasma (mg/dL) Date Value 09/10/2021 206 (H) 12/10/2019 193 03/06/2018 175 Triglycerides, Plasma (mg/dL) Date Value 09/10/2021 137 12/10/2019 276 03/06/2018 214 HDL (mg/dL) Date Value 09/10/2021 52 12/10/2019 35 03/06/2018 33 Assessment/Plan Age-appropriate Screening Schedule: Refer to the list below for future screening recommendations based on patient's age, sex and/or medical conditions. Orders for these recommended tests are listed in the plan section. The patient has been provided with a written plan. Health Maintenance Topic Date Due Glaucoma Screening 67+ Yr Never done [facility]-Medicare Annual Wellness (AWV) Never done RSV Vaccine: 60+ Years or (1 - 1-dose 60+ series) Never done [id number] Vaccine (2022- season) 2023 [facility]-Influenza Vaccine (1) 12/31/2023 [facility]- SDOH Screenings 04/26/2024 [facility]-Depression Screening 11/08/2024 [facility]-DTaP,Tdap,and Td Vaccines (2 - Td or Tdap) 06/03/2028 [facility]-Colorectal Cancer Screening 01/19/2033 [facility]-Pneumococcal Vaccine: 65+ Years Completed [facility]-Zoster Vaccines Completed [facility]-Hepatitis C Screening Completed [facility]-Obesity Intervention Completed [facility]-HIB Vaccines Aged Out [facility]-IPV Vaccines Aged Out Hepatitis A Vaccines Aged Out [facility]-Rotavirus Vaccines Aged Out [facility]-HPV Vaccines Aged Out The patient was counseled on the importance of the following screenings: Cardiovascular Screening Diabetes Screening Colorectal Cancer Screening [facility] Preventative Services Quick Reference Medicare Risks and Personalized Health Plan co-morbidities and functional impairment The above risks/problems have been discussed with the patient. Pertinent information has been shared with the patient in the After Visit Summary. Follow up plans and orders are seen below in the Assessment/Plan Section. Advanced Care Planning: has an advanced directive - a copy HAS NOT been provided. Problem List Items Addressed This Visit Essential (primary) hypertension Relevant Orders CBC W/O Differential Comprehensive Metabolic Panel, Plasma Lipid Profile, Plasma Vitamin B12, Serum Thyroid Stimulating Hormone, Plasma Other Visit Diagnoses Routine general medical examination at health care facility - Primary Relevant Orders CBC W/O Differential Comprehensive Metabolic Panel, Plasma Lipid Profile, Plasma Vitamin B12, Serum Thyroid Stimulating Hormone, Plasma Major depressive disorder, recurrent, moderate (CMS/HCC) Relevant Medications FLUoxetine (PROzac) 20 MG capsule Gastroesophageal reflux disease without esophagitis Relevant Medications omeprazole (PriLOSEC) [address] capsule Health Maintenance Due Topic Date Due Glaucoma Screening 67+ Yr Never done [employer]-Medicare Annual Wellness (AWV) Never done RSV Vaccine: 60+ Years or (1 - 1-dose 60+ series) Never done [id number] Vaccine (2022-24 season) 2023 [facility]-Influenza Vaccine (1) 12/31/2023 An After Visit Summary and PPPS with all of these plans were given to the patient. Follow Up: No follow-ups on file. Hypertension-doing well off of medication, will recommend watching, will need to restart if blood pressure elevates, patient will watch regularly and let me know Depression-chronic condition, acute exacerbation currently, will start SSRI, discussed curbing alcohol use and making some social changes, find things to getHimself more active in the evenings, call back if symptoms worsen GERD-chronic condition with acute exacerbation, will start proton pump inhibitor, advised to cut back on alcohol use, if symptoms do not resolve within a week or 2 then will need EGD, patient will let me know documented in this encounter Plan of Treatment Not on file documented as of this encounter Results * Thyroid Stimulating Hormone, Plasma (11/17/2023 8:18 AM EDT) Thyroid Stimulating Hormone, Plasma 1.83 0.40 - 4.20 uIU/mL 11/17/2023 1:59 PM EDT [facility] Blood Venous blood specimen / Unknown Venipuncture / Unknown 11/17/2023 8:18 AM EDT 11/17/2023 8:18 AM EDT us Dahlia Crane MD LAB BLOOD ORDERABLES Final Re sult Performing Organization Address [facility] de Phone Number [facility] [address] [place] [address] * Vitamin B12, Serum (11/17/2023 8:18 AM EDT) Vitamin B12, Serum 307 210 - 1,033 pg/mL 11/17/2023 1:57 PM EDT [facility] Blood Venous blood specimen / Unknown Venipuncture / Unknown 11/17/2023 8:18 AM EDT 11/17/2023 8:18 AM EDT Dahlia Crane MD LAB BLOOD ORDERABLES Final Re sult Performing Organization Address [facility] de Phone Number [facility] [address] [place] [address] * (ABNORMAL) Lipid Profile, Plasma (11/17/2023 8:18 AM EDT) Cholesterol, Plasma 204(H) <200 mg/dL 11/17/2023 1:59 PM EDT [facility] Comment: Cholesterol Reference Range (age >17 years): Desirable ? <200 mg/dL Borderline ? 200 to 239 mg/dL Undesirable ? >239 mg/dL HDL 37(L) >=40 mg/dL 11/17/2023 1:59 PM EDT [facility] Comment: HDL Cholesterol Reference Ranges (age >17 years): Female, acceptable ?? > or = 50 mg/dL Male, acceptable ? > or = 40 mg/dL Triglycerides, Plasma 218(H) <150 mg/dL 11/17/2023 1:59 PM EDT [facility] Comment: Triglyceride Reference Range (age >17 years): Desirable: ??<150 mg/dL Borderline high: ??150 to 199 mg/dL High: ??200 to 499 mg/dL Very high: ??>499 mg/dL Increased risk of pancreatitis: ??>1000 mg/dL Cholesterol/HDL Ratio 6 11/17/2023 1:59 PM EDT [facility] LDL, Calculated 128(H) <100 mg/dL 4 1:59 PM EDT [facility] Comment: LDL Cholesterol Reference Range (age >17 years): Optimal: ??<100 mg/dL Near or above optimal: 100 - 129 mg/dL Borderline high: 130 - 159 mg/dL High: 160 - 189 mg/dL Very high: >189 mg/dL LDL Cholesterol Reference Range (age <18 years): Desirable: ? <110 mg/dL Borderline: ?110 - 129 mg/dL Undesirable: ?? >130 mg/dL LDL Cholesterol is calculated using the Duggan/NIH equation. Fasting greater than or equal to 12 hours? Yes 11/17/2023 1:59 PM EDT [facility] Blood Venous blood specimen / Unknown Venipuncture / Unknown 11/17/2023 8:18 AM EDT 11/17/2023 8:18 AM EDT us Dahlia Crane MD LAB BLOOD ORDERABLES Final Re sult [facility] [address] [place] [address] documented in this encounter Visit Diagnoses Diagnosis Routine general medical examination at health care facility- Primary Routine general medical examination at a health care facility Essential (primary) hypertension Unspecified essential hypertension Major depressive disorder, recurrent, moderate (CMS/HCC) Major depressive disorder, recurrent episode, moderate Gastroesophageal reflux disease without esophagitis Esophageal reflux [...] documented as of this encounter Care Teams Night Shift Manager Relationship Specialty Start Date End Date Dahlia Crane MD [address] [place] [address] PCP - General 09/11/20 Laura Bauer LPN [facility] TCM Nurse Internal Medicine 10/24/23 11/23/23 documented as of this encounter
--- OUTSIDE RECORDS SUMMARY | 2024-03-19 13:31 | XMS_ITS | Encounter Summary ---
Author Organization Healthcare Address [address] [place] [address] Care Team Providers Care Documentation Supervisor Name Role Phone Dahlia Crane MD Primary Care Provider [phone] Laura Bauer LPN Unavailable Unavailabl e Encounter Details Date Type Department Care Team (Latest Contact Info) Description 11/20/2023 Travel Social History Tobacco Use Types Packs/Day [...] How often do you attend chur or episcopal services? More than 4 times per year [...] Recorded Patient Health Questionnaire-2 Score 1 11/09/2023 [facility] - Occupational Stress [...] to sleep or slept in a senior care (including now)? No 10/26/2023 PHQ-9 Answer Date [...] documented as of this encounter Care Teams Documentation Supervisor Relationship Specialty Start Date End Date Dahlia Crane MD [address] [place] [address] PCP - General 09/11/20 Laura Bauer LPN [facility] TCM Nurse Internal Medicine 10/24/23 11/23/23 documented as of this encounter
--- OUTSIDE RECORDS SUMMARY | 2024-03-19 13:31 | XMS_ITS | Encounter Summary ---
Author Organization Healthcare Address [address] [id number] Care Team Providers Care Office Coordinator Name Role Phone Dahlia Crane MD Primary Care Provider [phone] Laura Bauer LPN Unavailable Unavailabl e Encounter Details Date Type Department Care Team (Late st Contact Info) Description 11/17/2023 Orders Only [facility] [address] [place] [address] Pritesh Berrios Social History Tobacco Use Types Packs/Day Years [...] week 10/26/2023 How often do you attend [facility] or yazidi services? More than 4 times per year 10/26/2023 Do you belong to any clubs o r organizations such as worship groups, unions, fraternal or athletic groups, or [...] Recorded Patient Health Questionnaire-2 Score 1 11/09/2023 [facility] - Occupational Stress Questionnaire Answer Date [...] Recorded In the past 12 months has [facility], gas, oil, or water [employer] threatened to shut off services in your [...] documented as of this encounter Care Teams Office Coordinator Relationship Specialty Start Date End Date Dahlia Crane MD [address] [place] [id number] PCP - General 09/11/20 Laura Bauer LPN [facility] TCM Nurse Internal Medicine 10/24/23 11/23/23 documented as of this encounter
--- OUTSIDE RECORDS SUMMARY | 2024-03-19 13:31 | XMS_ITS | Encounter Summary ---
Author Organization Healthcare Address [address] [place] [address] Care Team Providers Care Special Education Science Teacher Name Role Phone Dahlia Crane MD Primary Care Provider [phone] Reason for Visit * Reason Comments Hypertension Follow up Encounter Details Date Type Department Care Team (Late st Contact Info) Description 05/09/2023 8:00 AM EST Office Visit [facility] [address] [place] [address] Kaila Osuna, WORK FROM HOME [address] [place] [address] Essential (primary) hypertension Social History Tobacco Use Types Packs/Day Years [...] Sign Reading Time Taken Comments Blood Pressure 132/82 05/09/2023 8:03 AM EST Pulse 94 05/09/2023 8:03 AM EST Temperature - - Respiratory Rate 18 05/09/2023 8:03 AM EST Oxygen Saturation 90% 05/09/2023 8:03 AM EST Inhaled Oxygen Concentration - - Weight 103 kg (227 lb) 05/09/2023 8:03 AM EST Height 171.5 cm (5' 7.5 ) 05/09/2023 8:03 AM EST Body Mass Index 35.03 05/09/2023 8:03 AM EST documented in this encounter Miscellaneous Notes * Progress Notes - Kaila Osuna, WORK FROM HOME - 05/09/2023 8:00 AM EST Subjective Patient ID: Barrie Tovar is a 68 y.o. male. Chief Complaint Patient presents with Hypertension Follow up HPI Barrie is a 68 year old male who presents to the clinic to follow up on HTN. He is currently taking 40 mg of Olmesartan daily. He does occasionally check blood pressure at home and readings have all been in the one-teens to one-twenties. Denies any adverse effects related to this medications. Blood pressure 132/82 in office today. He does try to follow a low sodium diet. Denies having any related symptoms including chest pain, shortness of breath, palpitations, headaches, or flushing. The following portions of the chart were reviewed this encounter and updated as appropriate: Tobacco Allergies Meds Problems Med Hx Surg Hx Fam Hx Current Outpatient Medications: DULoxetine (Cymbalta) [address] capsule, Take 1 capsule (30 mg) by mouth 1 (one) time each day. Do not crush or chew., Disp: 90 capsule, Rfl: 3 olmesartan (BENIcar) 40 MG tablet, Take 1 tablet (40 mg) by mouth 1 (one) time each day., Disp: 30 tablet, Rfl: 3 Review of Systems A 14 point ROS reviewed and is otherwise negative except as per HPI. Objective Blood pressure 132/82, pulse 94, resp. rate 18, height 1.715 m (5' 7.5 ), weight 103 kg (227 lb), SpO2 90 %. Body mass index is 35.03 kg/m??. Physical Exam Vitals reviewed. Constitutional: General: He is not in acute distress. Appearance: Normal appearance. Cardiovascular: Rate and Rhythm: Normal rate and regular rhythm. Pulmonary: Effort: Pulmonary effort is normal. Breath sounds: Normal breath sounds. No wheezing, rhonchi or rales. Neurological: Mental Status: He is alert and oriented to person, place, and time. Psychiatric: Mood and Affect: Mood normal. Behavior: Behavior normal. Thought Content: Thought content normal. Judgment: Judgment normal. Assessment/Plan Diagnoses and all orders for this visit: Essential (primary) hypertension - Basic metabolic panel Chronic condition, showing much improvement. Will recheck BMP today to assess for stability while taking medication. Encouraged to continue monitoring blood pressure periodically. Will follow up routinely in office in 6 months for further refills. Kaila Osuna APRN Note to patient: The Cures Act makes [...] Procedure Name Priority Date/Time Associated Diagnosis Comments BASIC METABOLIC PANEL, PLASMA Routine 05/09/2023 8:33 AM EST Essential (primary) hypertension documented in this encounter Results * (ABNORMAL) Basic metabolic panel (05/09/2023 8:33 AM EST) Glucose, Plasma 127(H) 74 - 99 mg/dL 05/09/2023 1:59 PM EST [facility] BUN, Plasma 13 8 - 23 mg/dL 05/09/2023 1:59 PM EST [facility] Creatinine, Plasma 0.96 0.80 - 1.30 mg/dL 05/09/2023 1:59 PM EST [facility] BUN/Creatinine Ratio 14 05/09/2023 1:59 PM EST [facility] Sodium, Plasma 135(L) 136 - 145 mmol/L 05/09/2023 1:59 PM EST [facility] Potassium, Plasma 4.4 3.7 - 4.8 mmol/L 05/09/2023 1:59 PM EST [facility] Chloride, Plasma 102 97 - 107 mmol/L 05/09/2023 1:59 PM EST [facility] CO2, Plasma 22 22 - 29 mmol/L 05/09/2023 1:59 PM EST [facility] Anion Gap 11 6 - 16 mmol/L 05/09/2023 1:59 PM EST [facility] Total Calcium, Plasma 9.6 8.9 - 10.2 mg/dL 05/09/2023 1:59 PM EST [facility] eGFRcr 85.6 mL/min/1.7 3m*2 05/09/2023 1:59 PM EST [facility] Comment:Reported eGFRcr in m L/min/1.73m2 is based the CKD-EPI 2020 equation that does not use a race coefficient. Blood Venous blood specimen / Unknown Venipuncture / Unknown 05/09/2023 8:33 AM EST 05/09/2023 8:33 AM EST us Kaila Osuna APRN LAB BLOOD ORDERABLES Final Result [facility] [address] [place] [address] documented in this encounter Visit Diagnoses Diagnosis Essential (primary) hypertension Unspecified essential hypertension documented in this encounter Additional Health Concerns Assessment Noted Time PHQ-9 Depression Total Score: 16 023 9:41 AM EDT A fall risk assessment has been complete d for the patient 05/09/2023 7:58 AM EST A Body Mass Index follow-up plan has been documented for the patient 05/09/2023 12:04 PM EST documented as of this encounter Care Teams Special Education Science Teacher Relationship Specialty Start Date End Date Dahlia Crane MD [address] [place] [address] PCP - General 09/11/20 documented as of this encounter
--- OUTSIDE RECORDS SUMMARY | 2024-03-19 13:31 | XMS_ITS | Encounter Summary ---
Author Organization Healthcare Address [address] [place] [address] Care Team Providers Care Small Piece Cutter Name Role Phone Dahlia Crane MD Primary Care Provider [phone] Reason for Visit * Reason Comments Urinary Frequency abdomen issue Encounter Details Date Type Department Care Team (Late st Contact Info) Description 12/08/2022 3:00 PM EDT Office Visit [facility] [address] [place] [address] Dahlia Crane MD [address] [place] [address] Frequency of urination (Primary Dx); Anxiety, generalized; Hyperglycemia Social History Tobacco Use Types Packs/Day Years [...] Sign Reading Time Taken Comments Blood Pressure 136/82 12/08/2022 2:44 PM EDT Pulse 80 12/08/2022 2:44 PM EDT Temperature - - Respiratory Rate - - Oxygen Saturation 96% 12/08/2022 2:44 PM EDT Inhaled Oxygen Concentration - - Weight 98.2 kg (216 lb 7.9 oz) 12/08/2022 2:44 P M EDT Height 171.5 cm (5' 7.5 ) 12/08/2022 2:44 PM EDT Body Mass Index 33.41 12/08/2022 2:44 PM EDT documented in this encounter Miscellaneous Notes * Progress Notes - Dahlia Crane MD - 12/08/2022 3:00 PM EDT Subjective Patient ID: Barrie Tovar is a 67 y.o. male. Chief Complaint Patient presents with Urinary Frequency abdomen issue Urinary Frequency Associated symptoms include frequency. Check complains of urinary frequency, different than normal for him, dribbling quite a bit, pain inlower abdomen, some burning with urination, no blood, no fever, does feel nauseated with decreased appetite Has a bulge in mid abdomen when he goes from laying to sitting position, just noticed it, seems to be getting bigger The following portions of the chart were reviewed this encounter and updated as appropriate: Tobacco Allergies Meds Problems Med Hx Surg Hx Fam Hx Current Outpatient Medications: DULoxetine (Cymbalta) [address] capsule, Take 1 capsule (30 mg) by mouth 1 (one) time each day. Do not crush or chew., Disp: 90 capsule, Rfl: 3 Objective Blood pressure 136/82, pulse 80, height 1.715 m (5' 7.5 ), weight 98.2 kg (216 lb 7.9 oz), SpO2 96 %. Body mass index is 33.41 kg/m??. Physical Exam Vitals reviewed. Constitutional: General: He is not in acute distress. Appearance: Normal appearance. HENT: Head: Normocephalic. Right Ear: Tympanic membrane normal. There is no impacted cerumen. Left Ear: Tympanic membrane normal. There is no impacted cerumen. Nose: No congestion. Mouth/Throat: Mouth: Mucous membranes are moist. Pharynx: No oropharyngeal exudate or posterior oropharyngeal erythema. Eyes: Extraocular Movements: Extraocular movements intact. Conjunctiva/sclera: Conjunctivae normal. Pupils: Pupils are equal, round, and reactive to light. Cardiovascular: Rate and Rhythm: Normal rate and regular rhythm. Heart sounds: Normal heart sounds. Pulmonary: Effort: Pulmonary effort is normal. No respiratory distress. Breath sounds: No wheezing, rhonchi or rales. Abdominal: Tenderness: There is abdominal tenderness (Mild, diffuse). Musculoskeletal: Cervical back: Normal range of motion. Lymphadenopathy: Cervical: No cervical adenopathy. Neurological: Mental Status: He is alert and oriented to person, place, and time. Psychiatric: Mood and Affect: Mood normal. Behavior: Behavior normal. Assessment/Plan Diagnoses and all orders for this visit: Frequency of urination - Urinalysis with reflex microscopic - Comprehensive Metabolic Panel, Plasma - Hemoglobin A1c - CBC W/O Differential - Prostate Specific Antigen, Diagnostic, Serum Anxiety, generalized - DULoxetine (Cymbalta) [address] capsule; Take 1 capsule (30 mg) by mouth 1 (one) time each day. Donot crush or chew. Hyperglycemia - Hemoglobin A1c Urinary frequency with abdominal pain-undiagnosed new problem with uncertain prognosis, check urinalysis as well as PSA CBC, further treatment pending lab results Diastasis recti-benign problem, patient reassured, no treatment needed This note was partially generated using [employer] system, and there may be some incorrect words, spellings, and punctuation that were not noted in checking the note before saving. Note to patient: The Century Cures Act [...] Procedure Name Priority Date/Time Associated Diagnosis Comments PROSTATE SPECIFIC ANTIGEN, DIAGNOSTIC, SERUM Routine 12/08/2022 3:32 PM EDT Frequency of urination URINALYSIS WITH REFLEX MICROSCOPIC Routine 12/08/2022 3:32 PM EDT Frequency of urination CBC W/O DIFFERENTIAL Routine 12/08/2022 3:32 PM EDT Frequency of urination HEMOGLOBIN A1C Routine 12/08/2022 3:32 PM EDT Frequency of urination Hyperglycemia COMPREHENSIVE METABOLIC PANEL, PLASMA Routine 12/08/2022 3:32 PM EDT Frequency of urination documented in this encounter Results * Prostate Specific Antigen, Diagnostic, Serum (12/08/2022 3:32 PM EDT) PSA, Diagnostic, Serum 0.20 0.00 - 4.50 ng/mL 12/08/2022 6:44 PM EDT [facility] Blood Venous blood specimen / Unknown Venipuncture / Unknown 12/08/2022 3:32 PM EDT 12/08/2022 3:32 PM EDT Narrative [facility] - 12/08/2022 6:44 PM EDT Performed by [employer] electrochemiluminescent immunoassay which is standardized against the PSA Darin Reference Standard (WHO 96/670). Results obtained with different test methods or kits cannot be used interchangeably. us Dahlia Crane MD LAB BLOOD ORDERABLES Final Re sult [facility] [address] [place] [address] * (ABNORMAL) CBC W/O Differential (12/08/2022 3:32 PM EDT) Pathologist [facility] WBC Count 6.49 3.70 - 10.30 10*3/uL LAB HEMATOLOGY METHOD 12/08/2022 6:32 PM EDT [facility] RBC Count 4.95 4.60 - 6.10 10*6/uL LAB HEMATOLOGY METHOD 12/08/2022 6:32 PM EDT [facility] HGB 16.0 13.7 - 17.5 g/dL LAB HEMATOLOGY METHOD 12/08/2022 6:32 PM EDT [facility] HCT 47.2 40.0 - 51.0 % LAB HEMATOLOGY METHOD 12/08/2022 6:32 PM EDT [facility] Platelet Count 214 155 - 369 10*3/uL LAB HEMATOLOGY METHOD 12/08/2022 6:32 PM EDT [facility] MCV 95 79 - 98 fL LAB HEMATOLOGY METHOD 12/08/2022 6:32 PM EDT [facility] MCH 32.3(H) 26.0 - 32.0 pg LAB HEMATOLOGY METHOD 12/08/2022 6:32 PM EDT [facility] MCHC 33.9 30.7 - 35.5 g/dL LAB HEMATOLOGY METHOD 12/08/2022 6:32 PM EDT [facility] RDW 13.5 11.5 - 14.5 % LAB HEMATOLOGY METHOD 12/08/2022 6:32 PM EDT [facility] MPV 9.4 8.8 - 12.5 fL LAB HEMATOLOGY METHOD 12/08/2022 6:32 PM EDT [facility] nRBC 0.0 <=0.0 per 100 WBCs LAB HEMATOLOGY METHOD 12/08/2022 6:32 PM EDT [facility] Blood Venous blood specimen / Unknown Venipuncture / Unknown 12/08/2022 3:32 PM EDT 12/08/2022 3:32 PM EDT Dahlia Crane MD LAB BLOOD ORDERABLES Final Re sult Performing Organization Address City/State/[facility] Co de Phone Number [facility] [address] [place] [address] * Hemoglobin A1c (12/08/2022 3:32 PM EDT) Hemoglobin A1c 5.6 <5.7 % 12/08/2022 7:28 PM EDT [facility] Blood Venous blood specimen / Unknown Venipuncture / Unknown 12/08/2022 3:32 PM EDT 12/08/2022 3:32 PM EDT Narrative [facility] - 12/08/2022 7:28 PM EDT HA1C Interpretive Data: Diagnosis of Diabetes: Diabetic > or = 6.5% Pre-diabetic 5.7 to 6.4% Non-diabetic < or = 5.6% Glycemic Targets for Type I and Type II Diabetics: Non- Adults <7.0% Adults <6.0% Children and Adolescents <7.5% Source: ??[place] [employer]. Standards of medical care in diabetes,2017. Diabetes Care.2017:40 (suppl 1):S1-S135. HbA1c assay performed by an ion-exchange chromatography method that is certified traceable to the DCCT. us Dahlia Crane MD LAB BLOOD ORDERABLES Final Re sult [facility] [address] [place] [address] * Comprehensive Metabolic Panel, Plasma (12/08/2022 3:32 PM EDT) Glucose, Plasma 96 74 - 99 mg/dL 12/08/2022 6:36 PM EDT [facility] BUN, Plasma 11 8 - 23 mg/dL 12/08/2022 6:36 PM EDT [facility] Creatinine, Plasma 0.94 0.80 - 1.30 mg/dL 12/08/2022 6:36 PM EDT [facility] BUN/Creatinine Ratio 12 12/08/2022 6:36 PM EDT [facility] Sodium, Plasma 141 136 - 145 mmol/L 12/08/2022 6:36 PM EDT [facility] Potassium, Plasma 4.4 3.7 - 4.8 mmol/L 12/08/2022 6:36 PM EDT [facility] Chloride, Plasma 104 97 - 107 mmol/L 12/08/2022 6:36 PM EDT [facility] CO2, Plasma 24 22 - 29 mmol/L 12/08/2022 6:36 PM EDT [facility] Anion Gap 13 6 - 16 mmol/L 12/08/2022 6:36 PM EDT [facility] Total Calcium, Plasma 10.0 8.9 - 10.2 mg/dL 12/08/2022 6:36 PM EDT [facility] Total Protein 7.7 6.3 - 7.9 g/dL 12/08/2022 6:36 PM EDT [facility] Albumin, Plasma 4.7 3.5 - 5.2 g/dL 12/08/2022 6:36 PM EDT [facility] AST, Plasma 35 19 - 48 U/L 12/08/2022 6:36 PM EDT [facility] ALT, Plasma 23 11 - 41 U/L 12/08/2022 6:36 PM EDT [facility] Alkaline Phosphatase, Plasma 63 40 - 115 U/L 12/08/2022 6:36 PM EDT [facility] Total Bilirubin, Plasma 0.5 0.2 - 1.1 mg/dL 12/08/2022 6:36 PM EDT [facility] eGFRcr 88.3 mL/min/1.7 3m*2 12/08/2022 6:36 PM EDT [facility] Comment:Reported eGFRcr in m L/min/1.73m2 is based the CKD-EPI 2020 equation that does not use a race coefficient. Blood Venous blood specimen / Unknown Venipuncture / Unknown 12/08/2022 3:32 PM EDT 12/08/2022 3:32 PM EDT us Dahlia Crane MD LAB BLOOD ORDERABLES Final Re sult [facility] [address] [place] [address] * Urinalysis with reflex microscopic (12/08/2022 3:32 PM EDT) Color, Urine Yellow LAB URINALYSIS - AUTOMATED METHOD 12/08/2022 6:04 PM EDT [facility] Clarity, Urine Clear LAB URINALYSIS - AUTOMATED METHOD 12/08/2022 6:04 PM EDT [facility] Spec [place], Urine 1.021 <=1.005 to >=1.030 LAB URINALYSIS - AUTOMATED METHOD 12/08/2022 6:04 PM EDT [facility] pH, Urine 5.5 4.5 to 8 LAB URINALYSIS - AUTOMATED METHOD 12/08/2022 6:04 PM EDT [facility] Protein, Urine Negative Negative mg/dL LAB URINALYSIS - AUTOMATED METHOD 12/08/2022 6:04 PM EDT [facility] Glucose, Urine Negative Negative mg/dL LAB URINALYSIS - AUTOMATED METHOD 12/08/2022 6:04 PM EDT [facility] Ketones, Urine Negative Negative mg/dL LAB URINALYSIS - AUTOMATED METHOD 12/08/2022 6:04 PM EDT [facility] Blood, Urine Negative Negative LAB URINALYSIS - AUTOMATED METHOD 12/08/2022 6:04 PM EDT [facility] Bilirubin, Urine Negative Negative LAB URINALYSIS - AUTOMATED METHOD 12/08/2022 6:04 PM EDT [facility] Urobilinogen, Urine 0.2 0.2 to 1.0 mg/dL LAB URINALYSIS - AUTOMATED METHOD 12/08/2022 6:04 PM EDT [facility] Leukocytes, Urine Negative Negative LAB URINALYSIS - AUTOMATED METHOD 12/08/2022 6:04 PM EDT [facility] Nitrite, Urine Negative Negative LAB URINALYSIS - AUTOMATED METHOD 12/08/2022 6:04 PM EDT [facility] Urine Urine specimen obtained by clean catch procedure / Unknown Non-blood Collection / Unknown 12/08/2022 3:32 PM EDT 12/08/2022 3:32 PM EDT us Dahlia Crane MD LAB URINE ORDERABLES Final Re sult [facility] [address] [place] [address] documented in this encounter Visit Diagnoses Diagnosis Frequency of urination- Primary Urinary frequency Anxiety, generalized Hyperglycemia Other abnormal glucose documented in this encounter Additional Health Concerns Assessment Noted Time PHQ-9 Depression Total Score: 16 023 9:41 AM EDT A fall risk assessment has been complete d for the patient 12/08/2022 2:46 PM EDT A Body Mass Index follow-up plan has been documented for the patient 12/08/2022 3:40 PM EDT documented as of this encounter Care Teams Small Piece Cutter Relationship Specialty Start Date End Date Dahlia Crane MD [address] [place] [id number] PCP - General 09/11/20 documented as of this encounter
--- OUTSIDE RECORDS SUMMARY | 2024-03-19 13:31 | XMS_ITS | Encounter Summary ---
Author Organization Healthcare Address [address] [id number] Care Team Providers Care Director Of Cardiac Cath Lab Name Role Phone Dahlia Crane MD Primary Care Provider [phone] Encounter Details Date Type Department Care Team (Late st Contact Info) Description 04/19/2023 Telephone [facility] [address] [place] [address] Nimco Dickey, PharmD [address] [place], [place] [id number] Social History Tobacco Use Types Packs/Day Years [...] encounter Miscellaneous Notes * Telephone Encounter - Nimco Dickey, PharmD - 04/19/2023 9:27 AM EST Attempted to call patient for HTN medication management but was unable to reach patient. Left VM for patient to return call to clinic PharmD. documented in this encounter Plan of Treatment [...] documented as of this encounter Care Teams Director Of Cardiac Cath Lab Relationship Specialty Start Date End Date Dahlia Crane MD [address] [place] [address] PCP - General 09/11/20 documented as of this encounter
--- OUTSIDE RECORDS SUMMARY | 2024-03-19 13:31 | XMS_ITS | Encounter Summary ---
Author Organization [facility] Address [address] [place] [address] Care Team Providers Care Pharmaceutical Detailer Name Role Phone Dahlia Crane MD Primary Care Provider [phone] Reason for Referral * Imaging (Routine) - Authorized Specialty Diagnoses / Procedures Referred By Contac t Referred To Contact Diagnoses Periumbilical abdominal pain Procedures CT Abdomen Pelvis w IV Contrast Dahlia Crane MD [address] [place] [address] Phone: tel: fax: Referral ID Status Reason Start Date Expiration Date V isits Requested Visits Authorized [id number] Authorized 02/16/2023 08/17/2024 1 1 * Imaging (Routine) - Authorized Specialty Diagnoses / Procedures Referred By Contac t Referred To Contact Diagnoses Periumbilical abdominal pain Procedures CT Abdomen Pelvis w and wo IV Contrast Dahlia Crane MD [address] [place] [address] Phone: tel: fax: Referral ID Status Reason Start Date Expiration Date V isits Requested Visits Authorized [id number] Authorized 02/16/2023 08/17/2024 1 1 Reason for Visit * Reason Comments Abdominal Pain Encounter Details Date Type Department Care Team (Latest Contact Info) Description 02/16/2023 10:40 AM EDT Office Visit [facility] [address] [place] [address] Dahlia rCane MD [facility] [place] [address] Periumbilical abdominal pain (Primary Dx) Social History Tobacco Use Types [...] Sign Reading Time Taken Comments Blood Pressure 126/86 02/16/2023 10:24 AM EDT Pulse 81 02/16/2023 10:24 AM EDT Temperature - - Respiratory Rate - - Oxygen Saturation 96% 02/16/2023 10:24 AM EDT Inhaled Oxygen Concentration - - Weight 100 kg (220 lb 14.4 oz) 02/16/2023 10:24 AM EDT Height 171.5 cm (5' 7.5 ) 02/16/2023 10:24 AM ED T Body Mass Index 34.09 02/16/2023 10:24 AM EDT documented in this encounter Miscellaneous Notes * Addendum Note - Per Avalos - 02/16/2023 10:40 AM EDTAddended by: PER AVALOS on: 02/16/2023 11:35 AM Modules accepted: Orders * Progress Notes - Dahlia Crane MD - 02/16/2023 10:40 AM EDT Subjective Patient ID: Barrie Tovar is a 67 y.o. male. 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 Do not crush or chew., Disp: 90 capsule, Rfl: 3 Objective Blood pressure 126/86, pulse 81, height 1.715 m (5' 7.5 ), weight 100 kg (220 lb 14.4 oz), SpO2 96 %. Body mass index is 34.09 kg/m??. Physical Exam Constitutional: General: He is not in acute distress. Appearance: He is well-developed. HENT: Head: Normocephalic and atraumatic. Right Ear: Tympanic membrane and external ear normal. Left Ear: Tympanic membrane and external ear normal. Nose: Nose normal. No congestion. Mouth/Throat: Mouth: Mucous membranes are moist. Pharynx: Oropharynx is clear. Eyes: Extraocular Movements: Extraocular movements intact. Conjunctiva/sclera: Conjunctivae normal. Pupils: Pupils are equal, round, and reactive to light. Neck: Thyroid: No thyromegaly. Cardiovascular: Rate and Rhythm: Normal rate and regular rhythm. Pulses: Normal pulses. Pulmonary: Effort: Pulmonary effort is normal. Breath sounds: Normal breath sounds. Abdominal: General: Bowel sounds are normal. There is no distension. Palpations: Abdomen is soft. There is no mass. Tenderness: There is abdominal tenderness (Periumbilical and towards right upper quadrant about 3-4inches away from umbilicus, no rebound, no peritoneal signs, feels slightly swollen in this area). Musculoskeletal: General: Normal range of motion. Cervical back: Normal range of motion and neck supple. Right lower leg: No edema. Left lower leg: No edema. Lymphadenopathy: Cervical: No cervical adenopathy. Skin: General: Skin is warm and dry. Findings: No rash. Neurological: General: No focal deficit present. Mental Status: He is alert and oriented to person, place, and time. Motor: Motor function is intact. Gait: Gait is intact. Deep Tendon Reflexes: Reflexes are normal and symmetric. Psychiatric: Mood and Affect: Mood normal. Behavior: Behavior normal. Assessment/Plan Diagnoses and all orders for this visit: Periumbilical abdominal pain - CT Abdomen Pelvis w and wo IV Contrast; Future - Comprehensive Metabolic Panel, Plasma - CBC W/O Differential Abdominal pain-undiagnosed new problem with uncertain prognosis, will check CT abdomen and pelvis CBC and CMP stat today to rule out perforation or complications related to the colonoscopy, follow-uponce results are known This note was partially generated using [employer] system, and there may be some incorrect words, spellings, and punctuation that were not noted in checking the note before saving. Note to patient: The Cures Act makes [...] documented in this encounter Plan of Treatment Scheduled Orders Name Type Priority Associated Diagnoses Orde r Schedule CT Abdomen Pelvis w and wo IV Contrast Imaging Routine Periumbilical abdominal pain Expected: 02/16/2023, Expires: 08/18/2024 CT Abdomen Pelvis w IV Contrast Imaging Routine Periumbilical abdominal pain Expected: 02/16/2023, Expires: 08/18/2024 documented as of this encounter Procedures Procedure Name Priority Date/Time Associated Diagnosis Comments CBC W/O DIFFERENTIAL Routine 11/17/2023 8:18 AM EDT Periumbilical abdominal pain COMPREHENSIVE METABOLIC PANEL, PLASMA Routine 11/17/2023 8:18 AM EDT Periumbilical abdominal pain documented in this encounter Results * (ABNORMAL) CBC W/O Differential (11/17/2023 8:18 AM EDT) WBC Count 6.59 3.70 - 10.30 10*3/uL LAB HEMATOLOGY METHOD 11/17/2023 1:41 PM EDT [facility] RBC Count 4.89 4.60 - 6.10 10*6/uL LAB HEMATOLOGY METHOD 11/17/2023 1:41 PM EDT [facility] HGB 15.8 13.7 - 17.5 g/dL LAB HEMATOLOGY METHOD 11/17/2023 1:41 PM EDT [facility] HCT 48.2 40.0 - 51.0 % LAB HEMATOLOGY METHOD 11/17/2023 1:41 PM EDT [facility] Platelet Count 228 155 - 369 10*3/uL LAB HEMATOLOGY METHOD 11/17/2023 1:41 PM EDT [facility] MCV 99(H) 79 - 98 fL LAB HEMATOLOGY METHOD 11/17/2023 1:41 PM EDT [facility] MCH 32.3(H) 26.0 - 32.0 pg LAB HEMATOLOGY METHOD 11/17/2023 1:41 PM EDT [facility] MCHC 32.8 30.7 - 35.5 g/dL LAB HEMATOLOGY METHOD 11/17/2023 1:41 PM EDT [facility] RDW 13.6 11.5 - 14.5 % LAB HEMATOLOGY METHOD 11/17/2023 1:41 PM EDT [facility] MPV 9.4 8.8 - 12.5 fL LAB HEMATOLOGY METHOD 11/17/2023 1:41 PM EDT [facility] nRBC 0.0 <=0.0 per 100 WBCs LAB HEMATOLOGY METHOD 11/17/2023 1:41 PM EDT [facility] Blood Venous blood specimen / Unknown Venipuncture / Unknown 11/17/2023 8:18 AM EDT 11/17/2023 8:18 AM EDT us Dahlia Crane MD LAB BLOOD ORDERABLES Final Re sult [facility] [address] [place] [address] * (ABNORMAL) Comprehensive Metabolic Panel, Plasma (11/17/2023 8:18 AM EDT) Glucose, Plasma 120(H) 74 - 99 mg/dL 11/17/2023 1:59 PM EDT [facility] BUN, Plasma 12 8 - 23 mg/dL 11/17/2023 1:59 PM EDT [facility] Creatinine, Plasma 0.95 0.80 - 1.30 mg/dL 11/17/2023 1:59 PM EDT [facility] BUN/Creatinine Ratio 13 11/17/2023 1:59 PM EDT [facility] Sodium, Plasma 141 136 - 145 mmol/L 11/17/2023 1:59 PM EDT [facility] Potassium, Plasma 4.6 3.7 - 4.8 mmol/L 11/17/2023 1:59 PM EDT [facility] Chloride, Plasma 103 97 - 107 mmol/L 11/17/2023 1:59 PM EDT [facility] CO2, Plasma 25 22 - 29 mmol/L 11/17/2023 1:59 PM EDT [facility] Anion Gap 13 6 - 16 mmol/L 11/17/2023 1:59 PM EDT [facility] Total Calcium, Plasma 10.0 8.9 - 10.2 mg/dL 11/17/2023 1:59 PM EDT [facility] Total Protein 7.6 6.3 - 7.9 g/dL 11/17/2023 1:59 PM EDT [facility] Albumin, Plasma 4.4 3.5 - 5.2 g/dL 11/17/2023 1:59 PM EDT [facility] AST, Plasma 35 10 - 50 U/L 11/17/2023 1:59 PM EDT [facility] ALT, Plasma 32 10 - 50 U/L 11/17/2023 1:59 PM EDT [facility] Alkaline Phosphatase, Plasma 58 40 - 115 U/L 11/17/2023 1:59 PM EDT [facility] Total Bilirubin, Plasma 0.6 0.2 - 1.1 mg/dL 11/17/2023 1:59 PM EDT [facility] eGFRcr 86.6 mL/min/1.7 3m*2 11/17/2023 1:59 PM EDT [facility] Comment:Reported eGFRcr in m L/min/1.73m2 is based the CKD-EPI 2020 equation that does not use a race coefficient. Blood Venous blood specimen / Unknown Venipuncture / Unknown 11/17/2023 8:18 AM EDT 11/17/2023 8:18 AM EDT us Dahlia Crane MD LAB BLOOD ORDERABLES Final Re sult [facility] [address] [place] [address] documented in this encounter Visit Diagnoses Diagnosis Periumbilical abdominal pain- Primary Abdominal pain, periumbilic documented in this encounter Additional Health Concerns Assessment Noted Time PHQ-9 Depression Total Score: 16 023 9:41 AM EDT A fall risk assessment has been complete d for the patient 02/16/2023 10:25 AM EDT A Body Mass Index follow-up plan has been documented for the patient 02/16/2023 11:21 AM EDT documented as of this encounter Care Teams Pharmaceutical Detailer Relationship Specialty Start Date End Date Dahlia Crane MD [address] [place] [address] PCP - General 09/11/20 documented as of this encounter
--- OUTSIDE RECORDS SUMMARY | 2024-03-19 13:31 | XMS_ITS | Encounter Summary ---
Author Organization [facility] Address [address] [place] [address] Care Team Providers Care Wood Panel Inspector Name Role Phone Dahlia Crane MD Primary Care Provider [phone] Reason for Referral * Consultation (Routine) - Authorized Specialty Diagnoses / Procedures Referred By Marley mcdowell Referred To Contact Otolaryngology Diagnoses Mouth ulceration Dahlia Crane MD [address] [place] [address] Phone: tel: fax: Referral ID Status Reason Start Date Expiration Date Visits Requested Visits Authorized [id number] Authorized Specialty Services Required 01/23/2023 07/24/2024 1 1 Scheduling Instructions [facility] Encounter Details Date Type Department Care Team (Late st Contact Info) Description 01/23/2023 Orders Only [facility] [address] [place] [address] Dahlia Crane MD [address] [place] [address] Mouth ulceration (Primary Dx) Social History Tobacco Use Types [...] Associated Diagnoses Order Schedule Ambulatory referral to ENT Outpatient Referral Routine Mouth ulceration 1 Occurrences starting 01/23/2023 until 07/23/2024 documented as of this encounter Visit Diagnoses Diagnosis Mouth ulceration- Primary Other and unspecified diseases of the oral soft tissues documented in this encounter Additional Health Concerns Assessment Noted Time PHQ-9 Depression Total Score: 16 023 9:41 AM EDT A fall risk assessment has been complete d for the patient 12/08/2022 2:46 PM EDT A Body Mass Index follow-up plan has been documented for the patient 12/08/2022 3:40 PM EDT documented as of this encounter Care Teams Wood Panel Inspector Relationship Specialty Start Date End Date Dahlia Crane MD [address] [place] [address] PCP - General 09/11/20 documented as of this encounter
--- OUTSIDE RECORDS SUMMARY | 2024-03-19 13:31 | XMS_ITS | Encounter Summary ---
Author Organization [facility] Address [address] [place] [id number] Care Team Providers Care Seed Cone Picker Name Role Phone Dahlia Crane MD Primary Care Provider [phone] Encounter Details Date Type Department Care Team (Late st Contact Info) Description 08/16/2023 Telephone [facility] [address] [place] [address] Dahlia Crane MD [address] [place] [address] Social History Tobacco Use Types [...] Miscellaneous Notes * Telephone Encounter - Tequila Strange, PharmD - 08/16/2023 2:17 PM EDT Called and spoke with patient. Patient reported low normal blood pressures for the last few days. Patient also reported dizziness when changing position from sitting to standing or bending over to standing. Patient reported he has not taken his olmesartan for 2 days due to the low BP readings. Instructed patient to continue to hold olmesartan and to continue to check BP at least 2 times a day, morning and evening, and keep a BP log. Will follow up with patient via phone call in 1 week to assess home BP readings and discuss whether he can come off of BP medication for now. Also provided education and counseling on falls prevention. Counseled patient to change positions slowly and when ch anging position to hold each position for 1-2 minutes to allow BP to steady before moving on. Counseled patient to ensure he has something to hold onto when changing position in the event he becomes unsteady. Patient expressed understanding and did not have any questions or concerns at this time. Tequila Strange, PharmD, BCACP [facility] [address] [facility] [address] documented in this encounter Plan of [...] documented as of this encounter Care Teams Seed Cone Picker Relationship Specialty Start Date End Date Dahlia Crane MD [address] [place] [id number] PCP - General 09/11/20 documented as of this encounter
--- OUTSIDE RECORDS SUMMARY | 2024-03-19 13:31 | XMS_ITS | Encounter Summary ---
Author Organization Healthcare Address [address] [place] [address] Care Team Providers Care Coat Agent Name Role Phone Dahlia Crane MD Primary Care Provider [phone] Encounter Details Date Type Department Care Team (Latest Contact Info) Description 12/08/2022 Travel Social History Tobacco Use Types Packs/Day [...] documented as of this encounter Care Teams Coat Agent Relationship Specialty Start Date End Date Dahlia Crane MD [address] [place] [address] PCP - General 09/11/20 documented as of this encounter
--- OUTSIDE RECORDS SUMMARY | 2024-03-19 13:31 | XMS_ITS | Encounter Summary ---
Author Organization [facility] Address [address] [place] [address] Care Team Providers Care Automotive Welder Name Role Phone Dahlia Crane MD Primary Care Provider [phone] Laura Bauer LPN Unavailable Unavailabl e Reason for Visit * Reason Comments Annual Wellness Visit Encounter Details Date Type Department Care Team ([facility] st Contact Info) Description 10/24/2023 Patient Outreach POPULATION [address] [address] Laura Bauer LPN [facility] Annual Wellness Visit Social History Tobacco Use [...] often do you attend chur ch or congregation services? More than 4 times per year 10/26/2023 Do you belong to any clubs o r organizations such as faith groups, unions, fraternal or athletic groups, or [...] Recorded Patient Health Questionnaire-2 Score 0 05/09/2023 [facility] - [facility]ational Stress Questionnaire Answer Date [...] place to sleep or slept in a jail (including now)? No 10/26/2023 PHQ-9 Answer Date Recorded Patient Health Questionnaire-9 Score 16 08/09/2022 Utilities Answer Date Recorded In the past 12 months has [employer], gas, oil, or water [employer] threatened to shut off services in your home? No 10/26/2023 PHQ-2A Answer Date Recorded Patient Health Questionnaire-2 Score 0 04/06/2023 Sex and Gender Information Value Date Recorded Sex Assigned at Not on file Legal Sex Male 7:49 PM EDT Gender Identity Not on file Sexual Orientation Not on file documented as of this encounter Miscellaneous Notes * Progress Notes - Laura Bauer LPN - 10/24/2023 2:41 PM EDT 10/26/2023: Called and completed annual wellness assessment with patient. Discussed with patient theimportance of annual wellness visit such as to help identify at-risk areas, reduce health risk factors and to promote overall healthiness. During call medication review was completed and up-to-date. sDOH questionnaire completed;and six item cognitive completed; if resource needs identified, referral placed. Reviewed upcoming appointment with patient and patient plans to attend. documented in this encounter Plan of Treatment [...] documented as of this encounter Care Teams Automotive Welder Relationship Specialty Start Date End Date Dahlia Crane MD [address] [place] [address] PCP - General 09/11/20 Laura Bauer LPN [facility] TCM Nurse Internal Medicine 10/24/23 11/23/23 documented as of this encounter
--- OUTSIDE RECORDS SUMMARY | 2024-03-19 13:31 | XMS_ITS | Encounter Summary ---
Author Organization Healthcare Address [address] [place] [address] Care Team Providers Care Drug Abuse Technician Name Role Phone Dahlia Crane MD Primary Care Provider Laura Bauer LPN Unavailable Unavailabl e Encounter Details Date Type Department Care Team (Latest Contact Info) Description 11/17/2023 Travel Social History Tobacco Use Types Packs/Day [...] How often do you attend chur or caodaism services? More than 4 times per year 10/26/2023 Do you belong to any clubs o r organizations such as episcopal groups, unions, fraternal or athletic groups, or [...] Recorded Patient Health Questionnaire-2 Score 1 11/09/2023 [facility] - Occupational [...] place to sleep or slept in a intermediate (including now)? No 10/26/2023 PHQ-9 Answer Date [...] documented as of this encounter Care Teams Drug Abuse Technician Relationship Specialty Start Date End Date Dahlia Crane MD [address] [place] [address] PCP - General 09/11/20 Laura Baure LPN [facility] TCM Nurse Internal Medicine 10/24/23 11/23/23 documented as of this encounter
--- OUTSIDE RECORDS SUMMARY | 2024-03-19 13:31 | XMS_ITS | Encounter Summary ---
Author Organization [facility] Address [address] [place] [address] Care Team Providers Care Paste Mixer Name Role Phone Dahlia Crane MD Primary Care Provider [phone] Reason for Visit * Reason Onset Date Comments HCN Clinical Concern/Question 02/14/2023 Encounter Details Date Type Department Care Team (Late st Contact Info) Description 02/14/2023 Telephone [facility] [address] [place] [address] Dahlia Crane MD [address] [place] [address] HCN Clinical Concern/Question Social History [...] encounter Miscellaneous Notes * Telephone Encounter - Iraj Messer - 02/14/2023 12:31 PM EDT Spoke with patient Appt made for and 1039 with pcp * Telephone Encounter - Dahlia Crane MD - 02/14/2023 11:06 AM EDT I am not sure, would recommend appointment * Telephone Encounter - OrtizShannen - 02/14/2023 8:51 AM EDT Clinical Concern/Question Reason for Call: Pt calling asking to speak to a nurse in regard to knot on stomach states sore nowaround the naval and cause diarrhea right after. Please call to advise thanks. Best contact number: [phone] Note: Please do not reply to this message. Follow-up communication and further actions as a result of this message need to be communicated with the patient directly, if the patient is not active onMyChart. If the patient is active on MyChart, they will receive notification of the communication/outcome via [employer]. documented in this encounter Plan of Treatment [...] documented as of this encounter Care Teams Paste Mixer Relationship Specialty Start Date End Date Dahlia Crane MD [address] [place] [address] PCP - General 09/11/20 documented as of this encounter
--- OUTSIDE RECORDS SUMMARY | 2024-03-19 13:31 | XMS_ITS | Encounter Summary ---
Author Organization Healthcare Address [address] [place] [address] Care Team Providers Care Adult Health Clinical Nurse Specialist Name Role Phone Dahlia Crane MD Primary Care Provider Encounter Details Date Type Department Care Team (Late st Contact Info) Description 02/16/2023 Orders Only External Location [address] [place] [address] Provider, [facility] Social History Tobacco Use Types Packs/Day Years [...] Procedure Name Priority Date/Time Associated Diagnosis Comments UREA NITROGEN, PLASMA Routine 02/16/2023 2:19 PM EDT CREATININE, SERUM Routine 02/16/2023 2:1 9 PM EDT documented in this encounter Results * Creatinine, serum (02/16/2023 2:19 PM EDT) External Creatinine Blood 0.9 0.6 - 1.3 mg/dL [facility] External Estimated GFR >60 60- mlpermin [facility] 02/16/2023 2:19 PM EDT 02/16/2023 2:19 PM EDT us Generic [place] Provider LAB BLOOD ORDERABLES Final Result Performing Organization Address [facility]/ZIP Co de Phone Number [facility] * Urea Nitrogen, Plasma (02/16/2023 2:19 PM EDT) External BUN 11 7 - 18 mg/dL [facility] 02/16/2023 2:19 PM EDT 02/16/2023 2:19 PM EDT us Generic [place] Provider LAB BLOOD ORDERABLES Final Result Performing Organization Address [facility] Co de Phone Number [facility] documented in this encounter Visit Diagnoses Not [...] documented as of this encounter Care Teams Adult Health Clinical Nurse Specialist Relationship Specialty Start Date End Date Dahlia Crane MD [address] [place] [address] PCP - General 09/11/20 documented as of this encounter
--- OUTSIDE RECORDS SUMMARY | 2024-03-19 13:32 | XMS_ITS | Encounter Summary ---
Author Organization Healthcare Address [address] [place] [address] Care Team Providers Care Burr Filer Name Role Phone Dahlia Crane MD Primary Care Provider [phone] Reason for Visit * Reason Comments Annual Exam Encounter Details Date Type Department Care Team (Latest Contact Info) Description 09/10/2021 1:00 PM EDT Office Visit Family and Community Medicine [address] [place] [address] Dahlia Crane MD [address] [place] [address] Routine general medical examination at a health care facility (Primary Dx); Essential (primary) hypertension; Primary osteoarthritis of right knee Social History Tobacco Use Types Packs/Day Years Used Date Smoking Tobacco: Never Smokeless Tobacco: Never PHQ-2 Answer Date Recorded Patient Health Questionnaire-2 Score 4 02/26/2021 Sex and Gender Information Value Date Recorded Sex Assigned at Not on file Legal Sex Male 7:49 PM EDT Gender Identity Not on file Sexual Orientation Not on file COVID-19 Exposure Response Date Recorded In the last 10 days, have yo u been in contact with someone who was confirmed or suspected to have Coronavirus/COVID-19? No / Unsure 09/10/2021 12:53 PM EDT documented as of this encounter Last Filed Vital Signs Vital Sign Reading Time Taken Comments Blood Pressure 136/80 09/10/2021 12:56 PM EDT Pulse 74 09/10/2021 12:56 PM EDT Temperature - - Respiratory Rate - - Oxygen Saturation 98% 09/10/2021 12:56 PM EDT Inhaled Oxygen Concentration - - Weight 102 kg (224 lb 6.9 oz) 09/10/2021 12:56 P M EDT Height 171.5 cm (5' 7.5 ) 09/10/2021 12:56 PM ED T Body Mass Index 34.63 09/10/2021 12:56 PM EDT documented in this encounter Miscellaneous Notes * Progress Notes - Dahlia Crane MD - 09/10/2021 1:00 PM EDT Subjective Patient ID: Harley Tovar is a 66 y.o. male. Chief Complaint Patient presents with ??? 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 naproxen (Naprosyn) 500 MG tablet, Take 1 tablet (500 mg total) by mouth 2 (two) times a day ifneeded for mild pain (pain)., Disp: 60 tablet, Rfl: 5 Objective Physical Exam Vitals reviewed. Constitutional: Appearance: Normal appearance. Neurological: Mental Status: He is alert. Assessment/Plan Diagnoses and all orders for this visit: Routine general medical examination at a health care facility - Comprehensive Metabolic Panel, Plasma - Lipid Profile, Plasma Essential (primary) hypertension - CBC W/O Differential - Comprehensive Metabolic Panel, Plasma - Lipid Profile, Plasma - Vitamin B12, Serum - Thyroid Stimulating Hormone, Plasma Primary osteoarthritis of right knee - naproxen (Naprosyn) 500 MG tablet; Take 1 tablet (500 mg total) by mouth 2 (two) times a day if needed for mild pain (pain). Osteoarthritis right knee-chronic worsening condition, due for knee replacement thing, will prescribe naproxen which has worked in the past for him, take with food Health maintenance-due for all fasting labs, check today Anxiety-chronic controlled condition, doing well off medications, patient will call me if worsens Hypertension-chronic controlled condition, doing well medications, will call me if worsens, patientwatches regularly at home The patient received dietary education because they have an above normal BMI. and The patient received exercise education because they have an above normal BMI. Discussed 5-10 lb of weight loss priorto knee replacement surgery would be beneficial documented in this encounter Plan of Treatment Not on file documented as of this encounter Procedures Procedure Name Priority Date/Time Associated Diagnosis Comments CBC W/O DIFFERENTIAL Routine 09/10/2021 1:19 PM EDT Essential (primary) hypertension TSH Routine 09/10/2021 1:19 PM EDT Essential (primary) hypertension VITAMIN B12, SERUM Routine 09/10/2021 1: 19 PM EDT Essential (primary) hypertension LIPID PROFILE, PLASMA Routine 09/10/2021 1:19 PM EDT Routine general medical examination at a health care facility Essential (primary) hypertension COMPREHENSIVE METABOLIC PANEL, PLASMA Routine 09/10/2021 1:19 PM EDT Routine general medical examination at a health care facility Essential (primary) hypertension documented in this encounter Results * Thyroid Stimulating Hormone, Plasma (09/10/2021 1:19 PM EDT) Thyroid Stimulating Hormone, Plasma 1.76 0.40 - 4.20 uIU/mL 09/10/2021 6:[address] [facility] Blood Venous blood specimen / Unknown Venipuncture / Unknown 09/10/2021 1:19 PM EDT 09/10/2021 1:19 PM EDT us Dahlia Crane MD LAB BLOOD ORDERABLES Final Re sult [facility] [address] [place] [address] * Vitamin B12, Serum (09/10/2021 1:19 PM EDT) Vitamin B12, Serum 307 210 - 1,033 pg/mL 09/10/2021 7:03 PM EDT [facility] Blood Venous blood specimen / Unknown Venipuncture / Unknown 09/10/2021 1:19 PM EDT 09/10/2021 1:19 PM EDT us Dahlia Crane MD LAB BLOOD ORDERABLES Final Re sult [facility] [address] [place] [address] * (ABNORMAL) Lipid Profile, Plasma (09/10/2021 1:19 PM EDT) Pathologist [facility] Cholesterol, Plasma 206(H) <200 mg/dL 09/10/2021 6:54 PM EDT [facility] Comment: Cholesterol Reference Range (age >17 years): Desirable? <200 mg/dL Borderline? 200 to 239 mg/dL Undesirable? >239 mg/dL HDL 52 >=40 mg/dL 09/10/2021 6:54 PM EDT [facility] Comment: HDL Cholesterol Reference Ranges (age >17 years): Female, acceptable? > or = 50 mg/dL Male, acceptable? > or = 40 mg/dL Triglycerides, Plasma 137 <150 mg/dL 09/10/2021 6:54 PM EDT [facility] Comment: Triglyceride Reference Range (age >17 years): Desirable:?? <150 mg/dL Borderline high:?? 150 to 199 mg/dL High:?? 200 to 499 mg/dL Very high:?? >499 mg/dL Increased risk of pancreatitis:?? >1000 mg/dL Cholesterol/HDL Ratio 4 09/10/2021 6:54 PM EDT [facility] LDL, Calculated 126.6(H) <100 mg/dL 09/10/2021 6:54 PM EDT [facility] Comment: LDL Cholesterol Reference Range (age >17 years): Optimal: ??<100 mg/dL Near or above optimal: 100 - 129 mg/dL Borderline high: 130 - 159 mg/dL High: 160 - 189 mg/dL Very high: >189 mg/dL LDL Cholesterol Reference Range (age <18 years): Desirable: ? <110 mg/dL Borderline: ?110 - 129 mg/dL Undesirable: ?? >130 mg/dL Blood Venous blood specimen / Unknown Venipuncture / Unknown 09/10/2021 1:19 PM EDT 09/10/2021 1:19 PM EDT us Dahlia Crane MD LAB BLOOD ORDERABLES Final Re sult [facility] [address] [place] [address] * (ABNORMAL) Comprehensive Metabolic Panel, Plasma (09/10/2021 1:19 PM EDT) [facility] Glucose, Plasma 120(H) 74 - 99 mg/dL 09/10/2021 6:[address] [facility] BUN, Plasma 13 8 - 23 mg/dL 09/10/2021 6:[address] [facility] Creatinine, Plasma 0.96 0.80 - 1.30 mg/dL 09/10/2021 6:[address] [facility] BUN/Creatinine Ratio 14 09/10/2021 6:[address] [facility] Sodium, Plasma 139 136 - 145 mmol/L 09/10/2021 6:[address] [facility] Potassium, Plasma 4.2 3.7 - 4.8 mmol/L 09/10/2021 6:[address] [facility] Comment:Reference range for Serum potassium is 0.2 to 0.5 mmol/L higher than Plasma range. Chloride, Plasma 102 97 - 107 mmol/L 09/10/2021 6:[address] [facility] CO2, Plasma 21(L) 22 - 29 mmol/L 09/10/2021 6:[address] [facility] Anion Gap 16 6 - 16 mmol/L 09/10/2021 6:[address] [facility] Total Calcium, Plasma 9.8 8.9 - 10.2 mg/dL 09/10/2021 6:[address] [facility] Total Protein 7.3 6.3 - 7.9 g/dL 09/10/2021 6:[address] [facility] Albumin, Plasma 4.8 3.5 - 5.2 g/dL 09/10/2021 6:[address] [facility] AST, Plasma 20 19 - 48 U/L 09/10/2021 6:[address] [facility] ALT, Plasma 22 11 - 41 U/L 09/10/2021 6:[address] [facility] Alkaline Phosphatase, Plasma 60 40 - 115 U/L 09/10/2021 6:[address] [facility] Total Bilirubin, Plasma 0.4 0.2 - 1.1 mg/dL 09/10/2021 6:[address] [facility] eGFR >60 >60 mL/min/1.7 3m*2 09/10/2021 6:[address] [facility] Comment:eGFR = estimated GFR ; eGFR units = mL/min/1.73 sq meters Chronic Kidney Disease is considered if eGFR <60 mL/min/1.73 sq meters Kidney failure is considered if eGFR is <15 mL/min/1.73 sq meters. eGFR assumes steady state plasma creatinine concentration; not applicable if renal function is rapidly changing or patient is on dialysis. eGFR, if AFR/AM >60 >60 mL/min/1.7 3m*2 09/10/2021 6:[address] [facility] Comment:eGFR = estimated GFR ; eGFR units = mL/min/1.73 sq meters Chronic Kidney Disease is considered if eGFR <60 mL/min/1.73 sq meters Kidney failure is considered if eGFR is <15 mL/min/1.73 sq meters. eGFR assumes steady state plasma creatinine concentration; not applicable if renal function is rapidly changing or patient is on dialysis. Blood Venous blood specimen / Unknown Venipuncture / Unknown 09/10/2021 1:19 PM EDT 09/10/2021 1:19 PM EDT us Dahlia Crane MD LAB BLOOD ORDERABLES Final Re sult [facility] [address] [place] [address] * (ABNORMAL) CBC W/O Differential (09/10/2021 1:19 PM EDT) WBC Count 10.52(H) 3.70 - 10.30 10*3/uL LAB HEMATOLOGY METHOD 09/10/2021 6:[address] [facility] RBC Count 4.75 4.60 - 6.10 10*6/uL LAB HEMATOLOGY METHOD 09/10/2021 6:[address] [facility] HGB 15.6 13.7 - 17.5 g/dL LAB HEMATOLOGY METHOD 09/10/2021 6:[address] [facility] HCT 45.8 40.0 - 51.0 % LAB HEMATOLOGY METHOD 09/10/2021 6:[address] [facility] Platelet Count 239 155 - 369 10*3/uL LAB HEMATOLOGY METHOD 09/10/2021 6:[address] [facility] MCV 96 79 - 98 fL LAB HEMATOLOGY METHOD 09/10/2021 6:[address] [facility] MCH 32.8(H) 26.0 - 32.0 pg LAB HEMATOLOGY METHOD 09/10/2021 6:[address] [facility] MCHC 34.1 30.7 - 35.5 g/dL LAB HEMATOLOGY METHOD 09/10/2021 6:[address] [facility] RDW 13.4 11.5 - 14.5 % LAB HEMATOLOGY METHOD 09/10/2021 6:[address] [facility] MPV 9.4 8.8 - 12.5 fL LAB HEMATOLOGY METHOD 09/10/2021 6:[address] [facility] nRBC 0.0 <=0.0 per 100 WBCs LAB HEMATOLOGY METHOD 09/10/2021 6:[address] [facility] Blood Venous blood specimen / Unknown Venipuncture / Unknown 09/10/2021 1:19 PM EDT 09/10/2021 1:19 PM EDT us Dahlia Crane MD LAB BLOOD ORDERABLES Final Re sult Performing Organization Address City/[facility]/ZIP Co de Phone Number [facility] [address] [place] [address] documented in this encounter Visit Diagnoses Diagnosis Routine general medical examination at a health care facility- Primary Essential (primary) hypertension Unspecified essential hypertension Primary osteoarthritis of right knee documented in this encounter Additional Health Concerns Assessment Noted Time PHQ-9 Depression Total Score: 13 021 9:53 AM EDT A fall risk assessment has been complete d for the patient 09/10/2021 1:01 PM EDT documented as of this encounter Care Teams Burr Filer Relationship Specialty Start Date End Date Dahlia Crane MD [address] [place] [id number] PCP - General 09/11/20 documented as of this encounter
--- OUTSIDE RECORDS SUMMARY | 2024-03-19 13:32 | XMS_ITS | Encounter Summary ---
Author Organization Healthcare Address [address] [place] [id number] Care Team Providers Care Glass Setter Name Role Phone Unavailable Primary Care Provider Unavailabl e Encounter Details Date Type Department Care Team (Late st Contact Info) Description 09/30/2013 [facility] Vitals Encounter [facility] [address] [place] [address] Provider, MD Thomas [address] [place] [id number] Social History Tobacco Use Types Packs/Day Years Used Date Smoking Tobacco: Never Assessed Sex and Gender Information Value Date Recorded Sex Assigned at Not on file Legal Sex Male 7:49 PM EDT Gender Identity Not on file Sexual Orientation Not on file documented as of this encounter Last Filed Vital Signs Vital Sign Reading Time Taken Comments Blood Pressure - - Pulse - - Temperature - - Respiratory Rate - - Oxygen Saturation - - Inhaled Oxygen Concentration - - Weight 104 kg (229 lb 3 oz) 09/30/2013 11:31 AM EDT Height 171.5 cm (5' 7.5 ) 09/30/2013 11:31 AM ED T Body Mass Index 35.37 09/30/2013 11:31 AM EDT documented in this encounter Plan of Treatment Not on file documented as of this encounter Visit Diagnoses Not on filedocumented in this encounter
--- OUTSIDE RECORDS SUMMARY | 2024-03-19 13:32 | XMS_ITS | Encounter Summary ---
Author Organization Healthcare Address [address] [place] [address] Care Team Providers Care Carpenter Repairer Name Role Phone Unavailable Primary Care Provider Unavailabl e Encounter Details Date Type Department Care Team (Late st Contact Info) Description 03/17/2014 [facility] Vitals Encounter [facility]IENT CONVERSIONS [address] [place] [address] ProviderThomas MD [address] [place] [address] Social History Tobacco Use Types Packs/Day [...] - Inhaled Oxygen Concentration - - Weight 106 kg (233 lb 5 oz) 03/17/2014 9:[address] Height 171.5 cm (5' 7.5 ) 03/17/2014 9:01 AM EST Body Mass Index 36 03/17/2014 9:01 AM EST documented in this encounter Plan of Treatment Not on file documented as of this encounter Visit Diagnoses Not on filedocumented in this encounter
--- OUTSIDE RECORDS SUMMARY | 2024-03-19 13:32 | XMS_ITS | Encounter Summary ---
Author Organization Healthcare Address [address] [place] [id number] Care Team Providers Care Plc Technician Name Role Phone Dahlia Crane MD Primary Care Provider [phone] Encounter Details Date Type Department Care Team (Late st Contact Info) Description 02/26/2021 9:00 AM EDT Office Visit Family and Community Medicine [address] [place] [address] Dahlia Crane MD [address] [place] [address] Anxiety, generalized (Primary Dx) Social History Tobacco Use Types [...] Exposure Response Date Recorded In the last month, have you been in contact with someone who was confirmed or suspected to have Coronavirus / COVID-19? Unable to assess 02/26/2021 8:57 AM EDT documented as of this encounter Last Filed Vital Signs Vital Sign Reading Time Taken Comments Blood Pressure 124/80 02/26/2021 9:02 AM EDT Pulse 88 02/26/2021 9:02 AM EDT Temperature - - Respiratory Rate - - Oxygen Saturation 98% 02/26/2021 9:02 AM EDT Inhaled Oxygen Concentration - - Weight 100 kg (220 lb 7.4 oz) 02/26/2021 9:02 AM EDT Height 171.5 cm (5' 7.5 ) 02/26/2021 9:02 AM EDT Body Mass Index 34.02 02/26/2021 9:02 AM EDT documented in this encounter Miscellaneous Notes * Progress Notes - Dahlia Crane MD - 02/26/2021 9:00 AM EDT Subjective Patient ID: Harley Tovar is a 66 y.o. male. No chief complaint on file. HPI Patient having worsening issues with anxiety, finds himself snapping at people, anxious and stressed a lot of the time, started on Lexapro 7 months ago, was working until the last month, feels much more on edge all the time, not sleeping well, has been having more vivid dreams than normal The following portions of the chart were reviewed this encounter and updated as appropriate: Tobacco Allergies Meds Problems Med Hx Surg Hx Fam Hx Current Outpatient Medications: ??? naproxen (Naprosyn) 500 MG tablet, , Disp: , Rfl: ??? FLUoxetine (PROzac) 20 MG capsule, Take 1 capsule (20 mg total) by mouth 1 (one) time each day., Disp: 30 capsule, Rfl: 1 Objective Physical Exam Vitals reviewed. Constitutional: Appearance: Normal appearance. Neurological: Mental Status: He is alert. Assessment/Plan Diagnoses and all orders for this visit: Anxiety, generalized - FLUoxetine (PROzac) 20 MG capsule; Take 1 capsule (20 mg total) by mouth 1 (one) time each day. anxiety-chronic worsening condition, it discussed counseling, I think this would be a good idea forhim, given names and numbers for him to call make an appointment, stop Lexapro unchanged to fluoxetine, if no improvement in 2-3 weeks call back documented in this encounter Plan of Treatment Not on file documented as of this encounter Visit Diagnoses Diagnosis Anxiety, generalized- Primary documented in this encounter Additional Health Concerns Assessment Noted Time PHQ-9 Depression Total Score: 13 021 9:53 AM EDT A fall risk assessment has been complete d for the patient 02/12/2021 12:56 PM EDT documented as of this encounter Care Teams Plc Technician Relationship Specialty Start Date End Date Dahlia Crane MD [address] [place] [address] PCP - General 09/11/20 documented as of this encounter
--- OUTSIDE RECORDS SUMMARY | 2024-03-19 13:32 | XMS_ITS ---
Author Organization [facility] Address [address] [place] [address] Care Team Providers Care Cloud Software Engineer Name Role Phone Dahlia Crane MD Primary Care Provider [phone] Annual Wellness Status:Closed (Closed) Start date:04/25/2023 Enrollment date:04/25/2023 Enrollment reason:Identified using claims or encounter data End date:04/27/2023 Close reason:Unable to reach patient Overview Unable to reach patient to complete AWV HRA. Continued Care and Services Coordination
--- OUTSIDE RECORDS SUMMARY | 2024-03-19 13:32 | XMS_ITS | Encounter Summary ---
Author Organization Healthcare Address [address] [place] [address] Care Team Providers Care Payable Processor Name Role Phone Greg Crane MD Primary Care Provider [phone] Reason for Visit * Reason Comments Weight Loss Encounter Details Date Type Department Care Team (Late st Contact Info) Description 08/09/2022 9:40 AM EDT Office Visit [facility] [address] [place] [address] Greg Crane MD [address] [place] [address] Anxiety, generalized (Primary Dx); Weight loss; Reactive depression; Hyperglycemia Social History Tobacco Use Types Packs/Day [...] Sign Reading Time Taken Comments Blood Pressure 150/80 08/09/2022 9:43 AM EDT Pulse 82 08/09/2022 9:35 AM EDT Temperature - - Respiratory Rate - - Oxygen Saturation 98% 08/09/2022 9:35 AM EDT Inhaled Oxygen Concentration - - Weight 98.7 kg (217 lb 9.5 oz) 08/09/2022 9:35 A M EDT Height 171.5 cm (5' 7.5 ) 08/09/2022 9:35 AM EDT Body Mass Index 33.58 08/09/2022 9:35 AM EDT documented in this encounter Miscellaneous Notes * Addendum Note - Greg Crane MD - 08/09/2022 9:40 AM EDTAddended by: GREG CRANE on: 08/10/2022 07:32 AM Modules accepted: Orders * Progress Notes - Greg Crane MD - 08/09/2022 9:40 AM EDT Subjective Patient ID: Harley Tovar is a 67 y.o. male. Chief Complaint Patient presents with Weight Loss HPI Patient had knee surgery 10 weeks ago, has been through physical therapy and released, continues tofeel pain on the medial portion of his right knee, feels warm at times, rate pain at 8/10, prior toreplacement was at 7/10, feels very depressed, actually went to [facility] to get [facility], has no appetite, cannot do what he wants to do, feels this is all related to continued pain, worried something is wrong in no one is listening to him The following portions of the chart were reviewed this encounter and updated as appropriate: Tobacco Allergies Meds Problems Med Hx Surg Hx Fam Hx Current Outpatient Medications: DULoxetine (Cymbalta) [address] capsule, Take 1 capsule (30 mg total) by mouth 1 (one) time each day. Do not crush or chew., Disp: 90 capsule, Rfl: 3 Objective Blood pressure (!) 150/80, pulse 82, height 1.715 m (5' 7.5 ), weight 98.7 kg (217 lb 9.5 oz), [id number] %. Body mass index is 33.58 kg/m??. Physical Exam Vitals reviewed. Constitutional: General: [...] Breath sounds: No wheezing, rhonchi or rales. Musculoskeletal: General: Swelling (Incision well-healed, slightly warm medial to the patella, entire knee swollen) present. Normal range of motion. Cervical back: Normal range of motion. Lymphadenopathy: Cervical: No cervical adenopathy. Neurological: Mental Status: He is alert and oriented to person, place, and time. Psychiatric: Mood and Affect: Mood normal. Behavior: Behavior normal. Assessment/Plan Diagnoses and all orders for this visit: Anxiety, generalized - DULoxetine (Cymbalta) [address] capsule; Take 1 capsule (30 mg total) by mouth 1 (one) time each day. Do not crush or chew. Weight loss - Comprehensive Metabolic Panel, Plasma - CBC W/O Differential - C-Reactive Protein, Plasma - Thyroid Stimulating Hormone, Plasma Reactive depression Reactive depression with underlying anxiety-chronic worsening condition, likely worsened due to current knee pain, will start duloxetine, hopefully short term, call back if no improvement, encouragednot to make any job decisions while he is feeling this bad Knee pain-chronic worsening condition, will check CRP and wbc's to rule out underlying joint prosthesis infection, encouraged him to make follow-up with orthopedist Weight loss-undiagnosed new problem with uncertain prognosis, check labs to rule out underlying metabolic condition, suspect this is related to his reactive depression This note was partially generated using [employer] system, and there may be some incorrect [...] Associated Diagnosis Comments CBC W/O DIFFERENTIAL Routine 08/09/2022 10:17 AM EDT Weight loss C-REACTIVE PROTEIN, PLASMA Routine 08/09/2022 10:17 AM EDT Weight loss TSH Routine 08/09/2022 10:17 AM EDT Weight loss HEMOGLOBIN A1C Add-On 08/09/2022 10:17 AM EDT Hyperglycemia COMPREHENSIVE METABOLIC PANEL, PLASMA Routine 08/09/2022 10:17 AM EDT Weight loss documented in this encounter Results * Hemoglobin A1c (08/09/2022 10:17 AM EDT) Hemoglobin A1c 5.2 <5.7 % 08/10/2022 9:46 AM EDT [facility] Blood Venous blood specimen / Unknown Venipuncture / Unknown 08/09/2022 10:17 AM EDT 08/09/2022 10:17 AM EDT Narrative [facility] - 08/10/2022 9:46 AM EDT HA1C Interpretive Data: Diagnosis of Diabetes: Diabetic > or = 6.5% Pre-diabetic 5.7 to 6.4% Non-diabetic < or = 5.6% Glycemic Targets for Type I and Type II Diabetics: Non- Adults <7.0% Adults <6.0% Children and Adolescents <7.5% Source: ??[place] [employer]. Standards of medical care in diabetes,2017. Diabetes Care.2017:40 (suppl 1):S1-S135. HbA1c assay performed by an ion-exchange chromatography method that is certified traceable to the DCCT. Greg Crane MD LAB BLOOD ORDERABLES Final Re sult Performing Organization Address City/[facility]/ZIP Co de Phone Number [facility] [address] [place] [address] * Thyroid Stimulating Hormone, Plasma (08/09/2022 10:17 AM EDT) Pathologist [facility] Thyroid Stimulating Hormone, Plasma 1.98 0.40 - 4.20 uIU/mL 08/09/2022 2:01 PM EDT [facility] Blood Venous blood specimen / Unknown Venipuncture / Unknown 08/09/2022 10:17 AM EDT 08/09/2022 10:17 AM EDT Greg Crane MD LAB BLOOD ORDERABLES Final Re sult Performing Organization Address [facility] Co de Phone Number [facility] [address] [place] [address] * C-Reactive Protein, Plasma (08/09/2022 10:17 AM EDT) Pathologist [facility] CRP, Plasma <3.0 <=8.0 mg/L 08/09/2022 2:01 PM EDT [facility] Blood Venous blood specimen / Unknown Venipuncture / Unknown 08/09/2022 10:17 AM EDT 08/09/2022 10:17 AM EDT Narrative [facility] - 08/09/2022 2:01 PM EDT This CRP test is appropriate for assessment of infection, systemic inflammation and/or tissue injury. To assess cardiovascular disease risk order high sensitivity CRP (CRPH). Greg Crane MD LAB BLOOD ORDERABLES Final Re sult Performing Organization Address City/[facility] Co de Phone Number [facility] [address] [place] [address] * CBC W/O Differential (08/09/2022 10:17 AM EDT) Pathologist [facility] WBC Count 8.58 3.70 - 10.30 10*3/uL LAB HEMATOLOGY METHOD 08/09/2022 1:37 PM EDT [facility] RBC Count 4.85 4.60 - 6.10 10*6/uL LAB HEMATOLOGY METHOD 08/09/2022 1:37 PM EDT [facility] HGB 15.4 13.7 - 17.5 g/dL LAB HEMATOLOGY METHOD 08/09/2022 1:37 PM EDT [facility] HCT 45.3 40.0 - 51.0 % LAB HEMATOLOGY METHOD 08/09/2022 1:37 PM EDT [facility] Platelet Count 205 155 - 369 10*3/uL LAB HEMATOLOGY METHOD 08/09/2022 1:37 PM EDT [facility] MCV 93 79 - 98 fL LAB HEMATOLOGY METHOD 08/09/2022 1:37 PM EDT [facility] MCH 31.8 26.0 - 32.0 pg LAB HEMATOLOGY METHOD 08/09/2022 1:37 PM EDT [facility] MCHC 34.0 30.7 - 35.5 g/dL LAB HEMATOLOGY METHOD 08/09/2022 1:37 PM EDT [facility] RDW 13.2 11.5 - 14.5 % LAB HEMATOLOGY METHOD 08/09/2022 1:37 PM EDT [facility] MPV 9.5 8.8 - 12.5 fL LAB HEMATOLOGY METHOD 08/09/2022 1:37 PM EDT [facility] nRBC 0.0 <=0.0 per 100 WBCs LAB HEMATOLOGY METHOD 08/09/2022 1:37 PM EDT [facility] Blood Venous blood specimen / Unknown Venipuncture / Unknown 08/09/2022 10:17 AM EDT 08/09/2022 10:17 AM EDT us Greg Crane MD LAB BLOOD ORDERABLES Final Re sult [facility] [address] [place] [address] * (ABNORMAL) Comprehensive Metabolic Panel, Plasma (08/09/2022 10:17 AM EDT) [facility] Glucose, Plasma 114(H) 74 - 99 mg/dL 08/09/2022 2:01 PM EDT [facility] BUN, Plasma 11 8 - 23 mg/dL 08/09/2022 2:01 PM EDT [facility] Creatinine, Plasma 0.76(L) 0.80 - 1.30 mg/dL 08/09/2022 2:01 PM EDT [facility] BUN/Creatinine Ratio 14 08/09/2022 2:01 PM EDT [facility] Sodium, Plasma 138 136 - 145 mmol/L 08/09/2022 2:01 PM EDT [facility] Potassium, Plasma 4.2 3.7 - 4.8 mmol/L 08/09/2022 2:01 PM EDT [facility] Chloride, Plasma 103 97 - 107 mmol/L 08/09/2022 2:01 PM EDT [facility] CO2, Plasma 21(L) 22 - 29 mmol/L 08/09/2022 2:01 PM EDT [facility] Anion Gap 14 6 - 16 mmol/L 08/09/2022 2:01 PM EDT [facility] Total Calcium, Plasma 9.9 8.9 - 10.2 mg/dL 08/09/2022 2:01 PM EDT [facility] Total Protein 7.9 6.3 - 7.9 g/dL 08/09/2022 2:01 PM EDT [facility] Albumin, Plasma 4.8 3.5 - 5.2 g/dL 08/09/2022 2:01 PM EDT [facility] AST, Plasma 22 19 - 48 U/L 08/09/2022 2:01 PM EDT [facility] ALT, Plasma 18 11 - 41 U/L 08/09/2022 2:01 PM EDT [facility] Alkaline Phosphatase, Plasma 71 40 - 115 U/L 08/09/2022 2:01 PM EDT [facility] Total Bilirubin, Plasma 0.5 0.2 - 1.1 mg/dL 08/09/2022 2:01 PM EDT [facility] eGFRcr 97.9 mL/min/1.7 3m*2 08/09/2022 2:01 PM EDT [facility] Comment: Reported eGFRcr in mL/min/1.73m2 is based the CKD-EPI 2021 equation that does not use a race coefficient. Effective 11/24/21 our laboratory changed the eGFR calculation to the CKD-EPI 2021 equation from the previously reported eGFR, based on the MDRD equation. ??For comparisons between the two equations, please see laboratory website: ??[email or web address] Blood Venous blood specimen / Unknown Venipuncture / Unknown 08/09/2022 10:17 AM EDT 08/09/2022 10:17 AM EDT us Greg Crane MD LAB BLOOD ORDERABLES Final Re sult [facility] [address] [place] [address] documented in this encounter Visit Diagnoses Diagnosis Anxiety, generalized- Primary Weight loss Loss of weight Reactive depression Hyperglycemia Other abnormal glucose documented in this encounter Additional Health Concerns Assessment Noted Time PHQ-9 Depression Total Score: 16 023 9:41 AM EDT A fall risk assessment has been complete d for the patient 08/09/2022 9:41 AM EDT A Body Mass Index follow-up plan has been documented for the patient 08/09/2022 10:22 AM EDT documented as of this encounter Care Teams Payable Processor Relationship Specialty Start Date End Date Greg Crane MD [address] [place] [address] PCP - General 09/11/20 documented as of this encounter
--- OUTSIDE RECORDS SUMMARY | 2024-03-19 13:32 | XMS_ITS | Encounter Summary ---
Author Organization Healthcare Address [address] [id number] Care Team Providers Care Milk Delivery Driver Name Role Phone Dahlia Crane MD Primary Care Provider [phone] Encounter Details Date Type Department Care Team (Late st Contact Info) Description 08/10/2022 Telephone [facility] [address] [place] [address] Dahlia Crane MD [address] [place] [address] Social History Tobacco Use Types [...] encounter Miscellaneous Notes * Telephone Encounter - Rosie Quinones - 08/10/2022 9:24 AM EDT Pt is aware of his labs. * Telephone Encounter - Vannesa Tadeo - 08/10/2022 8:24 AM EDT Patient Phone Message Reason for Call: Please give patient a call when his labs results are in. Thank you Best contact number and optimal time of day to reach caller: [phone] Note: Please do not reply to this message. Follow-up communication and further actions as a result of this message need to be communicated with the patient directly, if the patient is not active onMyChart. If the patient is active on MyChart, they will receive notification of the communication/outcome via [employer]. documented in this encounter Plan of Treatment [...] documented as of this encounter Care Teams Milk Delivery Driver Relationship Specialty Start Date End Date Dahlia Crane MD [address] [place] [address] PCP - General 09/11/20 documented as of this encounter
--- OUTSIDE RECORDS SUMMARY | 2024-03-19 13:32 | XMS_ITS | Encounter Summary ---
Author Organization Healthcare Address [address] [place] [address] Care Team Providers Care Retail Field Representative Name Role Phone Dahlia Crane MD Primary Care Provider [phone] Reason for Visit * Reason Comments Pre-op Exam Encounter Details Date Type Department Care Team (Latest Contact Info) Description 04/18/2022 10:40 AM EST Office Visit [facility] [address] [place] [address] Dahlia Crane MD [address] [place] [address] Primary osteoarthritis of right knee (Primary Dx); Essential (primary) hypertension Social History Tobacco Use Types Packs/Day Years Used Date Smoking Tobacco: Never Smokeless Tobacco: Never Tobacco Cessation:Counseling Given: Not Answered PHQ-2 Answer Date Recorded Patient Health Questionnaire-2 Score 0 04/18/2022 Sex and Gender Information Value Date Recorded Sex Assigned at Not on file Legal Sex Male 7:49 PM EDT Gender Identity Not on file Sexual Orientation Not on file COVID-19 Exposure Response Date Recorded In the last 10 days, have yo u been in contact with someone who was confirmed or suspected to have Coronavirus/COVID-19? No / Unsure 04/18/2022 10:24 AM EST documented as of this encounter Last Filed Vital Signs Vital Sign Reading Time Taken Comments Blood Pressure 112/72 04/18/2022 10:30 AM EST Pulse 64 04/18/2022 10:30 AM EST Temperature - - Respiratory Rate - - Oxygen Saturation 96% 04/18/2022 10:30 AM EST Inhaled Oxygen Concentration - - Weight 102 kg (225 lb 15.5 oz) 04/18/2022 10:30 AM EST Height 171.5 cm (5' 7.5 ) 04/18/2022 10:30 AM ES T Body Mass Index 34.87 04/18/2022 10:30 AM EST documented in this encounter Miscellaneous Notes * Progress Notes - Dahlia Crane MD - 04/18/2022 10:40 AM ESTAssociated Order(s): ECG(Non-[place])In-Clinic Interp Post-Procedure Diagnose(s): Essential (primary) hypertension; Primary osteoarthritis of right knee Patient ID: Harley Tovar is a 67 y.o. male. Encounter Diagnoses Name Primary? Primary osteoarthritis of right knee Yes Essential (primary) hypertension ECG(Non-[place])In-Clinic Interp Performed by: Dahlia Crane MD Authorized by: Dahlia Crane MD Interpretation: Interpretation: normal Rate: ECG rate assessment: normal Rhythm: Rhythm: sinus rhythm Ectopy: Ectopy: none QRS: QRS axis: Normal ST segments: ST segments: Normal T waves: T waves: normal Subjective Patient ID: Harley Tovar is a 67 y.o. male. Chief Complaint Patient presents with Pre-op Exam HPI Patient here for preop exam prior to right knee replacement surgery, plans to have this done by who has done his previous left knee replacement and both hip replacement, plans to be done in the hospital when he stay overnight, plans to stop naproxen 5 days prior to surgery, needs EKG and labs today, pain is constant and worsening and inhibiting his daily movements The The following portions of the chart were reviewed this encounter and updated as appropriate: Tobacco Allergies Meds Problems Med Hx Surg Hx Fam Hx Current Outpatient Medications: naproxen (Naprosyn) 500 MG tablet, Take 1 tablet (500 mg total) by mouth 2 (two) times a day if needed for mild pain (pain)., Disp: 60 tablet, Rfl: 5 Objective Blood pressure 112/72, pulse 64, height 1.715 m (5' 7.5 ), weight 102 kg (225 lb 15.5 oz), SpO2 96 %. Body mass index is 34.87 kg/m??. Physical Exam Constitutional: General: He is [...] mass. Tenderness: There is no abdominal tenderness. Musculoskeletal: General: Normal range of motion. Cervical [...] Diagnoses and all orders for this visit: Primary osteoarthritis of right knee - Hemoglobin A1c - CBC W/O Differential - Prothrombin Time/INR - APTT - Comprehensive Metabolic Panel, Plasma - Prealbumin Essential (primary) hypertension - Hemoglobin A1c - CBC W/O Differential - Prothrombin Time/INR - APTT - Comprehensive Metabolic Panel, Plasma - Prealbumin Other orders - ECG(Non-[place])In-Clinic Interp Right knee osteoarthritis-chronic worsening condition, exam is normal today, advised to hold anti-inflammatories 5 days prior to surgery, EKG normal today, check fasting labs today, medically stable for upcoming surgery if labs are all normal Hypertension-chronic stable condition, doing well off medication This note was partially generated using [employer] Direct system, and there may be some [...] Procedure Name Priority Date/Time Associated Diagnosis Comments APTT Routine 04/18/2022 11:20 AM EST Primary osteoarthritis of right knee Essential (primary) hypertension PROTHROMBIN TIME(PT) / INR Routine 04/18/2022 11:20 AM EST Primary osteoarthritis of right knee Essential (primary) hypertension CBC W/O DIFFERENTIAL Routine 04/18/2022 11:20 AM EST Primary osteoarthritis of right knee Essential (primary) hypertension PREALBUMIN, PLASMA Routine 04/18/2022 11 :20 AM EST Primary osteoarthritis of right knee Essential (primary) hypertension HEMOGLOBIN A1C Routine 04/18/2022 11:20 AM EST Primary osteoarthritis of right knee Essential (primary) hypertension COMPREHENSIVE METABOLIC PANEL, PLASMA Routine 04/18/2022 11:20 AM EST Primary osteoarthritis of right knee Essential (primary) hypertension ECG IN-CLINIC INTERP (NON-MUSE) Routine 04/18/2022 10:40 AM EST Primary osteoarthritis of right knee Essential (primary) hypertension documented in this encounter Results * Prealbumin (04/18/2022 11:20 AM EST) Prealbumin, Plasma 28.3 20.0 - 41.0 mg/dL 04/18/2022 1:58 PM EST [facility] Blood Venous blood specimen / Unknown Venipuncture / Unknown 04/18/2022 11:20 AM EST 04/18/2022 11:20 AM EST us Dahlia Crane MD LAB BLOOD ORDERABLES Final Re sult [facility] [address] [place] [address] * (ABNORMAL) Comprehensive Metabolic Panel, Plasma (04/18/2022 11:20 AM EST) Glucose, Plasma 101(H) 74 - 99 mg/dL 04/18/2022 1:58 PM EST [facility] BUN, Plasma 15 8 - 23 mg/dL 04/18/2022 1:58 PM EST [facility] Creatinine, Plasma 0.95 0.80 - 1.30 mg/dL 04/18/2022 1:58 PM EST [facility] BUN/Creatinine Ratio 16 04/18/2022 1:58 PM EST [facility] Sodium, Plasma 139 136 - 145 mmol/L 04/18/2022 1:58 PM EST [facility] Potassium, Plasma 4.3 3.7 - 4.8 mmol/L 04/18/2022 1:58 PM EST [facility] Comment:Reference range for Serum potassium is 0.2 to 0.5 mmol/L higher than Plasma range. Chloride, Plasma 103 97 - 107 mmol/L 04/18/2022 1:58 PM EST [facility] CO2, Plasma 23 22 - 29 mmol/L 04/18/2022 1:58 PM EST [facility] Anion Gap 13 6 - 16 mmol/L 04/18/2022 1:58 PM EST [facility] Total Calcium, Plasma 9.9 8.9 - 10.2 mg/dL 04/18/2022 1:58 PM EST [facility] Total Protein 7.6 6.3 - 7.9 g/dL 04/18/2022 1:58 PM EST [facility] Albumin, Plasma 5.0 3.5 - 5.2 g/dL 04/18/2022 1:58 PM EST [facility] AST, Plasma 24 19 - 48 U/L 04/18/2022 1:58 PM EST [facility] ALT, Plasma 25 11 - 41 U/L 04/18/2022 1:58 PM EST [facility] Alkaline Phosphatase, Plasma 55 40 - 115 U/L 04/18/2022 1:58 PM EST [facility] Total Bilirubin, Plasma 0.5 0.2 - 1.1 mg/dL 04/18/2022 1:58 PM EST [facility] eGFRcr 87.2 mL/min/1.7 3m*2 04/18/2022 1:58 PM EST [facility] Comment: Reported eGFRcr in mL/min/1.73m2 is based the CKD-EPI 2020 equation that does not use a race coefficient. Effective 11/24/21 our laboratory changed the eGFR calculation to the CKD-EPI 2020 equation from the previously reported eGFR, based on the MDRD equation. ??For comparisons between the two equations, please see laboratory website: ??https://www.[employer]/[facility] Blood Venous blood specimen / Unknown Venipuncture / Unknown 04/18/2022 11:20 AM EST 04/18/2022 11:20 AM EST Dahlia Crane MD LAB BLOOD ORDERABLES Final Re sult Performing Organization Address City/[facility] Co de Phone Number [facility] [address] [place] [address] * APTT (04/18/2022 11:20 AM EST) aPTT 27 25 - 35 sec LAB COAGULATION METHOD 04/18/2022 1:52 PM EST [facility] Blood Venous blood specimen / Unknown Venipuncture / Unknown 04/18/2022 11:20 AM EST 04/18/2022 11:20 AM EST Dahlia Crane MD LAB BLOOD ORDERABLES Final Re sult Performing Organization Address City/[facility] Co de Phone Number [facility] [address] [place] [address] * Prothrombin Time/INR (04/18/2022 11:20 AM EST) Prothrombin Time 12.6 12.0 - 14.3 sec LAB COAGULATION METHOD 04/18/2022 1:52 PM EST [facility] INR 0.9 0.9 - 1.1 LAB COAGULATION METHOD 04/18/2022 1:52 PM EST [facility] Blood Venous blood specimen / Unknown Venipuncture / Unknown 04/18/2022 11:20 AM EST 04/18/2022 11:20 AM EST Narrative [facility] - 04/18/2022 1:52 PM EST OPTIMAL INR RANGES FOR PATIENT ON ORAL ANTICOAGULANT THERAPY Prevention of venous thromboembolism ?INR 2.0 to 3.0 In patients with heart disease: Atrial fibrillation ?INR 2.0 to 3.0 Valvular heart disease ? INR 2.0 to 3.0 Tissue heart valves ?INR 2.0 to 3.0 Mechanical prosthetic valves ? INR 2.5 to 3.5 Prevention of recurrent NH ? INR 2.5 to 3.5 Dahlia Crane MD LAB BLOOD ORDERABLES Final Re sult [facility] [address] [place] [address] * CBC W/O Differential (04/18/2022 11:20 AM EST) WBC Count 8.84 3.70 - 10.30 10*3/uL LAB HEMATOLOGY METHOD 04/18/2022 1:46 PM EST [facility] RBC Count 4.87 4.60 - 6.10 10*6/uL LAB HEMATOLOGY METHOD 04/18/2022 1:46 PM EST [facility] HGB 15.6 13.7 - 17.5 g/dL LAB HEMATOLOGY METHOD 04/18/2022 1:46 PM EST [facility] HCT 45.8 40.0 - 51.0 % LAB HEMATOLOGY METHOD 04/18/2022 1:46 PM EST [facility] Platelet Count 231 155 - 369 10*3/uL LAB HEMATOLOGY METHOD 04/18/2022 1:46 PM EST [facility] MCV 94 79 - 98 fL LAB HEMATOLOGY METHOD 04/18/2022 1:46 PM EST [facility] MCH 32.0 26.0 - 32.0 pg LAB HEMATOLOGY METHOD 04/18/2022 1:46 PM EST [facility] MCHC 34.1 30.7 - 35.5 g/dL LAB HEMATOLOGY METHOD 04/18/2022 1:46 PM EST [facility] RDW 13.2 11.5 - 14.5 % LAB HEMATOLOGY METHOD 04/18/2022 1:46 PM EST [facility] MPV 9.9 8.8 - 12.5 fL LAB HEMATOLOGY METHOD 04/18/2022 1:46 PM EST [facility] nRBC 0.0 <=0.0 per 100 WBCs LAB HEMATOLOGY METHOD 04/18/2022 1:46 PM EST [facility] Blood Venous blood specimen / Unknown Venipuncture / Unknown 04/18/2022 11:20 AM EST 04/18/2022 11:20 AM EST Dahlia Crane MD LAB BLOOD ORDERABLES Final Re sult Performing Organization Address [facility] de Phone Number [facility] [address] [place] [address] * Hemoglobin A1c (04/18/2022 11:20 AM EST) Hemoglobin A1c 5.5 <5.7 % 04/18/2022 1:40 PM EST [facility] Blood Venous blood specimen / Unknown Venipuncture / Unknown 04/18/2022 11:20 AM EST 04/18/2022 11:20 AM EST Narrative [facility] - 04/18/2022 1:40 PM EST HA1C Interpretive Data: Diagnosis of Diabetes: Diabetic > or = 6.5% Pre-diabetic 5.7 to 6.4% Non-diabetic < or = 5.6% Glycemic Targets for Type I and Type II Diabetics: Non- Adults <7.0% Adults <6.0% Children and Adolescents <7.5% Source: ??[place] Diabetes Association. Standards of medical care in diabetes,2017. Diabetes Care.2017:40 (suppl 1):S1-S135. HbA1c assay performed by an ion-exchange chromatography method that is certified traceable to the DCCT. us Dahlia Crane MD LAB BLOOD ORDERABLES Final Re sult Performing Organization Address City/[facility] Co de Phone Number [facility] [address] [place] [address] [place] [address] * ECG IN-CLINIC INTERP (NON-MUSE) (04/18/2022 10:40 AM EST) Dahlia Marquez MD - 04/18/2022 10:40 AM EST Dahlia Crane MD ? 04/18/2022 11:35 AM ECG(Non-[place])In-Clinic Interp Performed by: Dahlia Crane MD Authorized by: Dahlia Crane MD Interpretation: ??Interpretation: normal ?? Rate: ??ECG rate assessment: normal ?? Rhythm: ??Rhythm: sinus rhythm ?? Ectopy: ??Ectopy: none ?? QRS: ??QRS axis: ??Normal ST segments: ??ST segments: ??Normal T waves: ??T waves: normal ?? us Dahlia Crane MD ECG ORDERABLES Final Result documented in this encounter Visit Diagnoses Diagnosis Primary osteoarthritis of right knee- Primary Essential (primary) hypertension Unspecified essential hypertension documented in this encounter Additional Health Concerns Assessment Noted Time PHQ-9 Depression Total Score: 13 021 9:53 AM EDT A fall risk assessment has been complete d for the patient 04/18/2022 10:31 AM EST documented as of this encounter Care Teams Retail Field Representative Relationship Specialty Start Date End Date Dahlia Crane MD [address] [place] [address] PCP - General 09/11/20 documented as of this encounter
--- OUTSIDE RECORDS SUMMARY | 2024-03-19 13:32 | XMS_ITS ---
Author Organization [facility] Address [address] [place] [id number] Care Team Providers Care De Ionizer Operator Name Role Phone Dahlia Crane MD Primary Care Provider [phone] Annual Wellness Status:Closed (Closed) Start date:10/24/2023 Enrollment date:10/24/2023 Enrollment reason:Identified using claims or encounter data End date:11/23/2023 Close reason:Patient graduated Continued Care and Services Coordination
--- OUTSIDE RECORDS SUMMARY | 2024-03-19 13:32 | XMS_ITS | Encounter Summary ---
Author Organization Healthcare Address [address] [place] [address] Care Team Providers Care Hog Confinement System Manager Name Role Phone Dahlia Crane MD Primary Care Provider [phone] Encounter Details Date Type Department Care Team (Latest Contact Info) Description 09/10/2021 Travel Social History Tobacco Use Types Packs/Day [...] PM EDT documented as of this encounter Plan of Treatment Not on file documented as of this encounter Visit Diagnoses Not on filedocumented in this encounter Additional Health Concerns Assessment Noted Time PHQ-9 Depression Total Score: 13 021 9:53 AM EDT A fall risk assessment has been complete d for the patient 09/10/2021 1:01 PM EDT documented as of this encounter Care Teams Hog Confinement System Manager Relationship Specialty Start Date End Date Dahlia Crane MD [address] [place] [address] PCP - General 09/11/20 documented as of this encounter
--- OUTSIDE RECORDS SUMMARY | 2024-03-19 13:32 | XMS_ITS | Encounter Summary ---
Author Organization Healthcare Address [address] [id number] Care Team Providers Care Natural Gas Engineer Name Role Phone Unavailable Primary Care Provider Unavailabl e Encounter Details Date Type Department Care Team (Late st Contact Info) Description 02/15/2017 [facility] AEHR Vitals Encounter [facility] OUTPATIENT CONVERSIONS [address] [place] [address] ProviderThomas MD [address] [place] [address] Social History Tobacco Use Types Packs/Day [...] - Inhaled Oxygen Concentration - - Weight 105 kg (231 lb) 02/15/2017 8:05 AM EDT Height 171.5 cm (5' 7.5 ) 02/15/2017 8:05 AM EDT Body Mass Index 35.65 02/15/2017 8:05 AM EDT documented in this encounter Plan of Treatment Not on file documented as of this encounter Visit Diagnoses Not on filedocumented in this encounter
--- OUTSIDE RECORDS SUMMARY | 2024-03-19 13:32 | XMS_ITS | Encounter Summary ---
Author Organization [facility] Address [address] [place] [address] Care Team Providers Care Sample Selector Name Role Phone Dahlia Crane MD Primary Care Provider [phone] Encounter Details Date Type Department Care Team (Late st Contact Info) Description 08/10/2022 Telephone Family and Community Medicine [address] [place] [address] [facility] [address] [place] [address] Social History Tobacco Use Types Packs/Day Years [...] documented as of this encounter Care Teams Sample Selector Relationship Specialty Start Date End Date Dahlia Crane MD [address] [place] [address] PCP - General 09/11/20 documented as of this encounter
--- OUTSIDE RECORDS SUMMARY | 2024-03-19 13:32 | XMS_ITS | Encounter Summary ---
Author Organization Healthcare Address [address] [place] [id number] Care Team Providers Care Supervisor Cell Maintenance Name Role Phone Dahlia Crane MD Primary Care Provider [phone] Encounter Details Date Type Department Care Team (Late st Contact Info) Description 09/13/2021 Orders Only Family and Community Medicine [address] [place] [address] Dahlia Crane MD [address] [place] [address] Elevated glucose (Primary Dx) Social History Tobacco Use Types [...] of this encounter Results * Hemoglobin A1c (09/13/2021 10:28 AM EDT) Hemoglobin A1c 5.5 <5.7 % 09/13/2021 1:33 PM EDT [facility] Blood Venous blood specimen / Unknown Venipuncture / Unknown 09/13/2021 10:28 AM EDT 09/13/2021 10:28 AM EDT Narrative [facility] - 09/13/2021 1:33 PM EDT HA1C Interpretive Data: Diagnosis of Diabetes: Diabetic > or = 6.5% Pre-diabetic 5.7 to 6.4% Non-diabetic < or = 5.6% Glycemic Targets for Type I and Type II Diabetics: Non- Adults <7.0% Adults <6.0% Children and Adolescents <7.5% Source: ??[place] Diabetes [employer]. Standards of medical care in diabetes,2017. Diabetes Care.2017:40 (suppl 1):S1-S135. HbA1c assay performed by an ion-exchange chromatography method that is certified traceable to the DCCT. us Dahlia Crane MD LAB BLOOD ORDERABLES Final Re sult [facility] [address] [place] [address] documented in this encounter Visit Diagnoses Diagnosis Elevated glucose- Primary Other abnormal glucose documented in this encounter Additional Health Concerns Assessment Noted Time PHQ-9 Depression Total Score: 13 021 9:53 AM EDT A fall risk assessment has been complete d for the patient 09/10/2021 1:01 PM EDT documented as of this encounter Care Teams Supervisor Cell Maintenance Relationship Specialty Start Date End Date Dahlia Crane MD [address] [place] [phone] PCP - General 09/11/20 documented as of this encounter
--- OUTSIDE RECORDS SUMMARY | 2024-03-19 13:32 | XMS_ITS | Encounter Summary ---
Author Organization Healthcare Address [address] [id number] Care Team Providers Care Assistant Store Manager Sales Name Role Phone Unavailable Primary Care Provider Unavailabl e Encounter Details Date Type Department Care Team (Late st Contact Info) Description 02/04/2016 Legacy AEHR Vitals Encounter [facility] OUTPATIENT CONVERSIONS [address] [place] [address] Provider, MD Thomas [address] [place] [address] Social History Tobacco Use Types Packs/Day [...] - Inhaled Oxygen Concentration - - Weight 102 kg (224 lb 0.2 oz) 02/04/2016 8:44 AM EDT Height 171.5 cm (5' 7.5 ) 02/04/2016 8:44 AM EDT Body Mass Index 34.57 02/04/2016 8:44 AM EDT documented in this encounter Plan of Treatment Not on file documented as of this encounter Visit Diagnoses Not on filedocumented in this encounter
--- OUTSIDE RECORDS SUMMARY | 2024-03-19 13:32 | XMS_ITS | Encounter Summary ---
Author Organization Healthcare Address [address] [place] [address] Care Team Providers Care Center Rep Name Role Phone Dahlia Crane MD Primary Care Provider [phone] Encounter Details Date Type Department Care Team (Latest Contact Info) Description 04/18/2022 Travel Social History Tobacco Use Types Packs/Day [...] documented as of this encounter Care Teams Center Rep Relationship Specialty Start Date End Date Dahlia Crane MD [address] [place] [address] PCP - General 09/11/20 documented as of this encounter
--- OUTSIDE RECORDS SUMMARY | 2024-03-19 13:32 | XMS_ITS | Encounter Summary ---
Author Organization Healthcare Address [address] [place] [address] Care Team Providers Care Hopper Filler Name Role Phone Dahlia Crane MD Primary Care Provider [phone] Encounter Details Date Type Department Care Team (Latest Contact Info) Description 09/13/2021 Travel Social History Tobacco Use Types Packs/Day [...] suspected to have Coronavirus/COVID-19? No / Unsure 09/13/2021 10:24 AM EDT documented as of this encounter Plan of Treatment Not on file documented as of this encounter Visit Diagnoses Not on filedocumented in this encounter Additional Health Concerns Assessment Noted Time PHQ-9 Depression Total Score: 13 021 9:53 AM EDT A fall risk assessment has been complete d for the patient 09/10/2021 1:01 PM EDT documented as of this encounter Care Teams Hopper Filler Relationship Specialty Start Date End Date Dahlia Crane MD [address] [place] [address] PCP - General 09/11/20 documented as of this encounter
--- OUTSIDE RECORDS SUMMARY | 2024-03-19 13:32 | XMS_ITS | Encounter Summary ---
Author Organization Healthcare Address [address] [place] [address] Care Team Providers Care Educational/Development Assistant Name Role Phone Dahlia Crane MD Primary Care Provider [phone] Citlali Freire BELT MACHINE OPERATOR Unavailable Unavail able Laura Bauer BELT MACHINE OPERATOR Unavailable Unavailabl e Encounter Details Date Type Department Care Team (Late st Contact Info) Description 02/07/2021 Outside Procedure External Location [address] [place] [address] Provider, [facility] Social History Tobacco Use Types Packs/Day Years Used Date Smoking Tobacco: Never Sex and Gender Information Value Date Recorded Sex Assigned at Not on file Legal Sex Male 7:49 PM EDT Gender Identity Not on file Sexual Orientation Not on file documented as of this encounter Plan of Treatment Not on file documented as of this encounter Procedures Procedure Name Priority Date/Time Associated Diagnosis Comments XR SHOULDER LEFT 2+ VIEWS 02/07/2021 12:21 PM EDT documented in this encounter Results * XR Shoulder Left 2+ Views (02/07/2021 12:21 PM EDT) Anatomical Region Laterality Modality Upper Extremities, Shoulder Left Radi ographic Imaging 02/07/2021 12:2 1 PM EDT Narrative 02/08/2021 8:14 AM EDT [address] [address] Name: HARLEY FOSTER Exam Date: 02/07/2021 : 1955 Age 65 Gender: M Physician: BRUNILDA PATEL Facility: [facility] Facility HSV: Outpatient Exam: SHOULDER COMP MIN 2 VWS LT LEFT SHOULDER HISTORY:Shoulder pain FINDINGS: Three views show no evidence of an acute, displaced fracture or dislocation of the visualized bony architecture. There is moderate degenerative change of the glenohumeral and acromioclavicular joint. IMPRESSION: No acute bony abnormality Films reviewed , interpreted and dictated by Dr. Méndez. Transcribed by Wilfrid Prado PA-C. Dictated By: ??JEIMY MÉNDEZ Transcribed By: Gurmeet Méndez Transcribed On: 02/08/2021 8:02 AM Electronically signed by: JEIMY MÉNDEZ 02/08/2021 Thank you for referring HARLEY FOSTER to [facility]. Legally authenticated by DEV KINNEY 2021-02-08 08:02:40 Procedure Note Provider, [facility] - 02/08/2021 [place] [address] Name: HARLEY FOSTER Exam Date: 02/07/2021 : 1955 Age 65 Gender: M Physician: BRUNILDA PATEL Facility: PSYCHIATRIC Facility HSV: Outpatient Exam: SHOULDER COMP MIN 2 VWS LT LEFT SHOULDER HISTORY:Shoulder pain FINDINGS: Three views show no evidence of an acute, displaced fractureor dislocation of the visualized bony architecture. There is moderate degenerative change of the glenohumeral and acromioclavicular joint. IMPRESSION: No acute bony abnormality Films reviewed , interpreted and dictated by Dr. Méndez. Transcribed by Wilfrid Prado PA-C. Dictated By: JEIMY MÉNDEZ Transcribed By: Gurmeet Méndez Transcribed On: 02/08/2021 8:02 AM Electronically signed by: JEIMY MÉNDEZ 02/08/2021 Thank you for referring HARLEY FOSTER to [facility]. Legally authenticated by DEV KINNEY 2021-02-08 08:02:40 Generic [place] Provider IMG XR PROCEDURES Fi nal Result documented in this encounter Visit Diagnoses Not on filedocumented in this encounter Care Teams Educational/Development Assistant Relationship Specialty Start Date End Date Dahlia Crane MD [address] [place] [id number] PCP - General 09/11/20 Citlali Freire LPN [employer] [place] [address] TCM Nurse 04/25/23 04/27/23 Laura Bauer LPN [facility] TCM Nurse Internal Medicine 10/24/23 11/23/23 documented as of this encounter
--- OUTSIDE RECORDS SUMMARY | 2024-03-19 13:32 | XMS_ITS | Encounter Summary ---
Author Organization Healthcare Address [address] [place] [address] Care Team Providers Care Meat Service Team Member Name Role Phone Dahlia Crane MD Primary Care Provider [phone] Citlali Freire PIPEMAN Unavailable Unavail able Laura Bauer PIPEMAN Unavailable Unavailabl e Reason for Visit * Reason Comments Med Refill Encounter Details Date Type Department Care Team (Late st Contact Info) Description 03/22/2021 Refill Family and Community Medicine [address] [place] [address] Dahlia Crane MD [address] [place] [address] Anxiety, generalized Social History Tobacco Use Types Packs/Day Years [...] encounter Miscellaneous Notes * Telephone Encounter - Sammi Junior - 03/24/2021 11:20 AM EST Per protocol, fluoxetine, have been refused due to: Refill requested too soon documented in this encounter Plan of Treatment Not on file documented as of this encounter Visit Diagnoses Diagnosis Anxiety, generalized documented in this encounter Additional Health Concerns Assessment Noted Time PHQ-9 Depression Total Score: 13 021 9:53 AM EDT A fall risk assessment has been complete d for the patient 02/12/2021 12:56 PM EDT documented as of this encounter Care Teams Meat Service Team Member Relationship Specialty Start Date End Date Dahlia Crane MD [address] [place] [address] PCP - General 09/11/20 Citlali Freire LPN [employer] [place] [address] TCM Nurse 04/25/23 04/27/23 Laura Bauer LPN [facility] TCM Nurse Internal Medicine 10/24/23 11/23/23 documented as of this encounter
--- OUTSIDE RECORDS SUMMARY | 2024-03-19 13:32 | XMS_ITS | Encounter Summary ---
Author Organization Healthcare Address [address] [place] [address] Care Team Providers Care Denier Control Operator Name Role Phone Dahlia Crane MD Primary Care Provider [phone] Encounter Details Date Type Department Care Team (Late st Contact Info) Description 02/07/2021 Orders Only External Location [address] [place] [address] Provider, [facility] Social History Tobacco Use Types Packs/Day Years [...] Procedure Name Priority Date/Time Associated Diagnosis Comments TROPONIN ([facility]) Routine 02/07/2021 11:51 AM EDT CBC WITH AUTO DIFFERENTIAL Routine 02/07/2021 11:51 AM EDT COMPREHENSIVE METABOLIC PANEL, PLASMA Routine 02/07/2021 11:51 AM EDT documented in this encounter Results * Troponin ([facility]) (02/07/2021 11:51 AM EDT) External Troponin <0.017 0 - 0.056 ng/ml [facility] 02/07/2021 11:5 1 AM EDT 02/07/2021 11:59 AM EDT [facility] Provider LAB BLOOD ORDERABLES Final Result [facility] * Comprehensive Metabolic Panel, Plasma (02/07/2021 11:51 AM EDT) External Sodium 137 136 - 145 mmol/L [facility] External Potassium 4.2 3.6 - 5.0 mmol/L [facility] External Chloride 102 98 - 107 mmol/L [facility] External Carbon Dioxide 26.7 21.0 - 32.0 mmol/L [facility] External Anion Gap (AG) 12.5 [facility] External Glucose 104 70 - 120 mg/dl [facility] External BUN 14 7 - 18 mg/dL [facility] External Creatinine Blood 1.0 0.6 - 1.3 mg/dL [facility] External Estimated GFR >60 60- mlpermin [facility] External Total Protein 8.1 6.4 - 8.2 g/dl [facility] External Albumin 4.1 3.4 - 5.0 g/dl [facility] External Globulin 4.0 [facility] External Albumin/Globulin Ratio 1.0 0.7 - 2 [facility] External Calcium 9.4 8.5 - 10.5 mg/dl [facility] External Bilirubin Total 0.33 0.10 - 1.00 mg/dL [facility] External AST (SGOT) 21 0 - 37 U/L [facility] External ALT (SGPT) 26 0 - 65 U/L [facility] External Alkaline Phosphatase 74 46 - 116 U/L [facility] 02/07/2021 11:5 1 AM EDT 02/07/2021 11:59 AM EDT us Generic [place] Provider LAB BLOOD ORDERABLES Final Result [facility] * (ABNORMAL) CBC and Differential (02/07/2021 11:51 AM EDT) External WBC 9.6 4.0 - 10.5 K/ul [facility] External Red Blood Cell (RBC) 4.8 4.7 - 6.1 M/mm3 [facility] External Hemoglobin 15.9 13.5 - 18.0 gm/dl [facility] External Hematocrit 45.7 42.0 - 52.0 % [facility] External MCV 94.6 78 - 100 fl [facility] External MCH 32.9(H) 27 - 31 pg [facility] External MCHC 34.8 32 - 36 g/dl [facility] External RDW 13.8 11.5 - 14.0 % [facility] External Platelets 217 150 - 450 K/ul [facility] External Neutrophils % 29.8(L) 43 - 65 % [facility] External Lymphocyte % 52.5(H) 20.5 - 45.5 % [facility] External Monocyte % 12.7(H) 5.5 - 11.7 % [facility] External Eosinophil% 4.1(H) 0.9 - 2.9 % [facility] External Basophil % 0.9 0.2 - 1.0 % [facility] External Neutrophil# 2.9 2.2 - 4.8 K/uL [facility] External Lymphocyte# 5.1(H) 1.3 - 2.9 CELL/MCL [facility] External Monocyte# 1.2(H) 0.3 - 0.8 CELL/MCL [facility] External Eosinophils# 0.4(H) 0 - 0.2 CELL/MCL [facility] External Baso# 0.1 0.0 - 1.0 CELL/[facility] External Manual Differential NO [facility] 02/07/2021 11:5 1 AM EDT 02/07/2021 11:59 AM EDT us Generic [place] Provider LAB BLOOD ORDERABLES Final Result [facility] documented in this encounter Visit Diagnoses Not on filedocumented in this encounter Care Teams Denier Control Operator Relationship Specialty Start Date End Date Dahlia Crane MD [address] [place] [address] PCP - General 09/11/20 documented as of this encounter
--- OUTSIDE RECORDS SUMMARY | 2024-03-19 13:32 | XMS_ITS | Encounter Summary ---
Author Organization [facility] Address [address] [place] [address] Care Team Providers Care Rn Postpartum Name Role Phone Dahlia Crane MD Primary Care Provider [phone] Reason for Visit * Reason Onset Date Comments HCN - Patient Message 04/07/2022 Encounter Details Date Type Department Care Team (Late st Contact Info) Description 04/07/2022 Telephone [facility] [address] [place] [address] Dahlia Crane MD [address] [place] [address] HCN - Patient Message Social History Tobacco Use Types Packs/Day Years [...] AM EST documented as of this encounter Miscellaneous Notes * Telephone Encounter - Kallie Avalos - 04/07/2022 2:02 PM EST scheduled * Telephone Encounter - aDhlia Crane MD - 04/07/2022 1:39 PM EST Okay to add him in a 20 minutes same-day slot * Telephone Encounter - Ariela Maharaj - 04/07/2022 11:17 AM EST Patient Phone Message Reason for Call: pt needs to have pre-op appt sched prior to knee surg 05/09/22. Asking to be seen innext few weeks Asking to see Dr Crane only. No appts to offer with her until end of May Best contact number and optimal time of day to reach caller: [phone] Note: Please do not reply to this message. Follow-up communication and further actions as a result of this message need to be communicated with the patient directly, if the patient is not active onMyChart. If the patient is active on MyChart, they will receive notification of the communication/outcome via [facility]. documented in this encounter Plan of Treatment Not on file documented as of this encounter Visit Diagnoses Not on filedocumented in this encounter Additional Health Concerns Assessment Noted Time PHQ-9 Depression Total Score: 13 021 9:53 AM EDT A fall risk assessment has been complete d for the patient 09/10/2021 1:01 PM EDT documented as of this encounter Care Teams Rn Postpartum Relationship Specialty Start Date End Date Dahlia Crane MD [address] [facility] [address] PCP - General 09/11/20 documented as of this encounter
--- OUTSIDE RECORDS SUMMARY | 2024-03-19 13:32 | XMS_ITS | Encounter Summary ---
Author Organization [facility] Address [address] [id number] Care Team Providers Care Grain Oilseed Or Pasture Grower Name Role Phone Dahlia Crane MD Primary Care Provider [phone] Reason for Visit * Reason Onset Date Comments HCN - Patient Message 01/10/2022 Encounter Details Date Type Department Care Team (Late st Contact Info) Description 01/10/2022 Telephone Family and [facility] Medicine [address] [place] [address] Dahlia Crane MD [address] [place] [address] HCN - Patient Message Social [...] * Telephone Encounter - Rosie Quinones - 01/10/2022 9:30 AM EDT Pt aware, has an appt with [facility] today. * Telephone Encounter - Dahlia Crane MD - 01/10/2022 9:20 AM EDT Sorry, but will need [facility] eval if no openings here * Telephone Encounter - Rosie Quinones - 01/10/2022 9:15 AM EDT We do not have any appts today. Work him in or advise to [facility]? * Telephone Encounter - Adrianna Murrieta - 01/10/2022 9:10 AM EDT Patient Phone Message Reason for Call:For Triage: pt is asking if they can get worked in today for sinus infection. Please call Best contact number and optimal time of day to reach caller:[phone] Note: Please do not reply to this message. Follow-up communication and further actions as a result of this message need to be communicated with the patient directly, if the patient is not active onMyChart. If the patient is active on MyChart, they will receive notification of the communication/outcome via [employer]. documented in this encounter Plan of Treatment Not on file documented as of this encounter Visit Diagnoses Not on filedocumented in this encounter Additional Health Concerns Assessment Noted Time PHQ-9 Depression Total Score: 13 02/26/ 021 9:53 AM EDT A fall risk assessment has been complete d for the patient 09/10/2021 1:01 PM EDT documented as of this encounter Care Teams Grain Oilseed Or Pasture Grower Relationship Specialty Start Date End Date Dahlia Crane MD [address] [address] PCP - General 09/11/20 documented as of this encounter
--- OUTSIDE RECORDS SUMMARY | 2024-03-19 13:32 | XMS_ITS | Encounter Summary ---
Author Organization Healthcare Address [address] [id number] Care Team Providers Care Senior Information Systems Architect Name Role Phone Unavailable Primary Care Provider Unavailabl e Encounter Details Date Type Department Care Team (Late st Contact Info) Description 08/28/2013 [facility] Vitals Encounter [facility] OUTPATIENT CONVERSIONS [address] [place] [address] ProviderThomas MD [address] [place] [address] Social History Tobacco Use Types Packs/Day [...] Oxygen Concentration - - Weight 106 kg (234 lb 3 oz) 08/28/2013 8:34 AM E DT Height 171.5 cm (5' 7.5 ) 08/28/2013 8:34 AM EDT Body Mass Index 36.14 08/28/2013 8:34 AM EDT documented in this encounter Plan of Treatment Not on file documented as of this encounter Visit Diagnoses Not on filedocumented in this encounter
--- OUTSIDE RECORDS SUMMARY | 2024-03-19 13:32 | XMS_ITS | Encounter Summary ---
Author Organization Healthcare Address [address] [place] [address] Care Team Providers Care Watch Assembler Name Role Phone Dahlia Crane MD Primary Care Provider [phone] Citlali Freire QUALITY CLOTH TESTER Unavailable Unavail able Laura Bauer QUALITY CLOTH TESTER Unavailable Unavailabl e Encounter Details Date Type Department Care Team (Late st Contact Info) Description 02/07/2021 Outside Procedure External Location [address] [place] [phone] Provider, [facility] Social History Tobacco Use Types Packs/Day Years [...] Name Priority Date/Time Associated Diagnosis Comments XR CHEST 1 VIEW 02/07/2021 11:56 AM EDT documented in this encounter Results * XR Chest 1 View (02/07/2021 11:56 AM EDT) Anatomical Region Laterality Modality Chest Radiographic Dayna ging 02/07/2021 11:5 6 AM EDT Narrative 02/08/2021 8:14 AM EDT [address] [address] Name: HARLEY FOSTER Exam Date: 02/07/2021 : 1955 Age 65 Gender: M Physician: BRUNILDA PATEL Facility: [facility] Facility HSV: Outpatient Exam: CHEST PORTABLE PORTABLE CHEST HISTORY: Precordial chest pain COMPARISON: 12/06/2009 FINDINGS: The heart and mediastinum are within normal limits. The lungs are clear without evidence of acute infiltrate or effusion. The bony structures are intact. IMPRESSION: No acute process. Films reviewed , interpreted and dictated by Dr. Méndez. Transcribed by Wilfrid Prado PA-C. Dictated By: ??JEIMY MÉNDEZ Transcribed By: Gurmeet Méndez Transcribed On: 02/08/2021 8:02 AM Electronically signed by: JEIMY MÉNDEZ 02/08/2021 Thank you for referring HARLEY FOSTER to [facility]. Legally authenticated by DEV KINNEY 2021-02-08 08:02:11 Procedure Note Provider, [facility] - 02/08/2021 [place] [address] Name: HARLEY FOSTER Exam Date: 02/07/2021 : 1955 Age 65 Gender: M Physician: BRUNILDA PATEL Facility: [facility] Facility HSV: Outpatient Exam: CHEST PORTABLE PORTABLE CHEST HISTORY: Precordial chest pain COMPARISON: 12/06/2009 FINDINGS: The heart and mediastinum are within normal limits. The lungsare clear without evidence of acute infiltrate or effusion. The bonystructures are intact. IMPRESSION: No acute process. Films reviewed , interpreted and dictated by Dr. Méndez. Transcribed by Wilfrid Prado PA-C. Dictated By: JEIMY MÉNDEZ Transcribed By: Gurmeet Méndez Transcribed On: 02/08/2021 8:02 AM Electronically signed by: JEIMY MÉNDEZ 02/08/2021 Thank you for referring HARLEY FOSTER to [facility]. Legally authenticated by DEV KINNEY 2021-02-08 08:02:11 [facility] Provider IMG XR PROCEDURES Fi nal Result documented in this encounter Visit Diagnoses Not on filedocumented in this encounter Care Teams Watch Assembler Relationship Specialty Start Date End Date Dahlia Crane MD [address] [place] [address] PCP - General 09/11/20 Citlali Freire LPN [employer] [place] [address] TCM Nurse 04/25/23 04/27/23 Laura Bauer LPN [facility] TCM Nurse Internal Medicine 10/24/23 11/23/23 documented as of this encounter
--- OUTSIDE RECORDS SUMMARY | 2024-03-19 13:32 | XMS_ITS | Encounter Summary ---
Author Organization [facility] Address [address] [id number] Care Team Providers Care Realtime Court Reporter Name Role Phone Dahlia Crane MD Primary Care Provider [phone] Reason for Visit * Reason Comments Med Refill Encounter Details Date Type Department Care Team (Late st Contact Info) Description 01/01/2021 Refill Family and Community Medicine [address] [place] [address] Dahlia Crane MD [address] [place] [address] Generalized anxiety disorder Social History Tobacco Use Types Packs/Day Years Used Date Smoking Tobacco: Never Sex and Gender Information Value Date Recorded Sex Assigned at Not on file Legal Sex Male 7:49 PM EDT Gender Identity Not on file Sexual Orientation Not on file documented as of this encounter Miscellaneous Notes * Telephone Encounter - Kitty Aly CPhT - 01/05/2021 10:21 AM EDT Renewed per protocol to [facility]. documented in this encounter Plan of Treatment Not on file documented as of this encounter Visit Diagnoses Diagnosis Generalized anxiety disorder documented in this encounter Care Teams Realtime Court Reporter Relationship Specialty Start Date End Date Dahlia Crane MD [address] [place] [address] PCP - General 09/11/20 documented as of this encounter
--- OUTSIDE RECORDS SUMMARY | 2024-03-19 13:32 | XMS_ITS | Encounter Summary ---
Author Organization Healthcare Address [address] [place] [address] Care Team Providers Care Latex Foam Worker Name Role Phone Dahlia Crane MD Primary Care Provider [phone] Encounter Details Date Type Department Care Team (Latest Contact Info) Description 08/09/2022 Travel Social History Tobacco Use Types Packs/Day [...] documented as of this encounter Care Teams Latex Foam Worker Relationship Specialty Start Date End Date Dahlia Crane MD [address] [place] [address] PCP - General 09/11/20 documented as of this encounter
--- OUTSIDE RECORDS SUMMARY | 2024-03-19 13:32 | XMS_ITS | Encounter Summary ---
Author Organization Healthcare Address [address] [id number] Care Team Providers Care Diamond Wheel Molder Name Role Phone Unavailable Primary Care Provider Unavailabl e Encounter Details Date Type Department Care Team (Late st Contact Info) Description 10/07/2013 Legacy AEHR Vitals Encounter [facility] OUTPATIENT CONVERSIONS [address] [place] [address] Provider, MD Thomas [address] [place] [address] Social History Tobacco Use Types Packs/Day [...] - Inhaled Oxygen Concentration - - Weight 103 kg (228 lb 1 oz) 10/07/2013 11:26 AM EDT Height 171.5 cm (5' 7.5 ) 10/07/2013 11:26 AM ED T Body Mass Index 35.19 10/07/2013 11:26 AM EDT documented in this encounter Plan of Treatment Not on file documented as of this encounter Visit Diagnoses Not on filedocumented in this encounter
--- OUTSIDE RECORDS SUMMARY | 2024-03-19 13:32 | XMS_ITS | Encounter Summary ---
Author Organization Healthcare Address [address] [place] [address] Care Team Providers Care Sous Chef Kitchen Manager Name Role Phone Dahlia Crane MD Primary Care Provider [phone] Reason for Visit * Reason Comments ER follow up 02/07/2021 Encounter Details Date Type Department Care Team (Late st Contact Info) Description 02/12/2021 1:00 PM EDT Office Visit [facility] [address] [place] [address] Jose Serrato MD [address] [facility] [address] [place] [address] Acute pain of left shoulder (Primary Dx) Social History Tobacco Use Types Packs/Day Years Used Date Smoking Tobacco: Never Smokeless Tobacco: Never Tobacco Cessation:Counseling Given: Yes PHQ-2 Answer Date Recorded Patient Health Questionnaire-2 Score 4 02/12/2021 Sex and Gender Information Value Date Recorded Sex Assigned at Not on file Legal Sex Male 7:49 PM EDT Gender Identity Not on file Sexual Orientation Not on file COVID-19 Exposure Response Date Recorded In the last month, have you been in contact with someone who was confirmed or suspected to have Coronavirus / COVID-19? Unable to assess 02/12/2021 12:44 PM ED T documented as of this encounter Last Filed Vital Signs Vital Sign Reading Time Taken Comments Blood Pressure 130/76 02/12/2021 12:53 PM EDT Pulse 71 02/12/2021 12:53 PM EDT Temperature 36.7 ??C (98.1 ??F) 02/12/2021 12:53 PM E DT Respiratory Rate 18 02/12/2021 12:53 PM EDT Oxygen Saturation 96% 02/12/2021 12:53 PM EDT Inhaled Oxygen Concentration - - Weight 99.1 kg (218 lb 7.6 oz) 02/12/2021 12:53 PM EDT Height 171.5 cm (5' 7.5 ) 02/12/2021 12:53 PM ED T Body Mass Index 33.71 02/12/2021 12:53 PM EDT documented in this encounter Miscellaneous Notes * Progress Notes - Jose Serrato MD - 02/12/2021 1:00 PM EDT Subjective Patient ID: Harley Tovar is a 65 y.o. male. Chief Complaint Patient presents with ??? ER follow up 02/07/2021 HPI The following portions of the chart were reviewed this encounter and updated as appropriate: Meds Problems Med Hx Surg Hx Fam Hx Review of Systems Objective Physical Exam Assessment/Plan * Progress Notes - Jose Serrato MD - 02/12/2021 1:00 PM EDT Subjective Patient ID: Harley Tovar is a 65 y.o. male. Chief Complaint Patient presents with ??? ER follow up 02/07/2021 HPI On 02/07, he developed acute onset of left shoulder pain, reports sharp knife- like pain in his leftshoulder. His blood pressure was really high. Patient went to the emergency room. Reports his bloodpressure was high. He had EKG, lab work done. He was told that it was unrelated to his heart. He was prescribed naproxen was sent home. 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 Denies any oulder surgeries in the past. Reports history of knee arthritis, hip arthritis in the past. States his left shoulder pain is slightly better. Sleeping on that side makes the pain worse. He denies anytingling or numbness sensation radiating to his extremities pain scale 4 to 5/10. Has not tried naproxen. Localizes the pain over the subacromial space and also the anterior aspect of the shoulder rep orts pain worse with overhead motion. The following portions of the chart were reviewed this encounter and updated as appropriate: Meds Problems Med Hx Surg Hx Fam Hx Review of Systems Cardiovascular: HPI Respiratory: Negative MSK: HPI Abdomen: Negative Neuro: Negative Objective Physical Exam Constitutional: Well developed and well nourished Psychological: Appropriate Mood and affect HENT: Normocephalic, No obvious deformities, External ears normal, no lesions or masses Eyes: EOMI, inspection of the conjunctiva normal Pulmonary: Non labored breathing, equal bilateral chest rise Cardiac: Well perfused, extremities pink, BP and HR reviewed, wtnl Abdomen: Non distended Peripheral Exam: Normal Radial pulses 2+ Skin: No rashes noted over Bilateral LE Neurological: AAOx3 Left Shoulder: Inspection: No effusion, warmth, erythema, or ecchymosis No muscle atrophy noted ROM: Active range of motion: Forward Flexion 160, Abduction 160, Internal Rotation to l1 External Rotation 45. Palpation: No tenderness to palpation over the acromial clavicular joint No tenderness to palpation over the sternoclavicular joint No tenderness to palpation over the greater tuberosity tenderness to palpation over the subacromial space No tenderness to palpation over the periscapular musculature tenderness to palpation over the biceps tendon Special tests: + Arriola + Neer's. + empty can, strength 5/5. + full can, strength 5/5 + crossarm adduction test. + speed's, strength 5/5. Resisted external rotation-5/5, pain Resisted internal rotation-5/5, no pain Sensation intact over the radial, ulnar, median nerve distribution Gamma Ray Operator strength equal, 5/5. Motor testing of the radial, ulnar, median nerve distribution-5/5 Radial pulses 2+. 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 Today on exam, he has pain over the biceps tendon, subacromial bursa and also likely pain from his osteoarthritis. Patient was advised to take naproxen follow-up in 2 weeks. Reexamination, would consider cortisone injection if not better. documented in this encounter Plan of Treatment Not on file documented as of this encounter Visit Diagnoses Diagnosis Acute pain of left shoulder- Primary documented in this encounter Additional Health Concerns Assessment Noted Time PHQ-9 Depression Total Score: 18 021 12:56 PM EDT A fall risk assessment has been complete d for the patient 02/12/2021 12:56 PM EDT documented as of this encounter Care Teams Sous Chef Kitchen Manager Relationship Specialty Start Date End Date Dahlia Crane MD [address] [place] [address] PCP - General 09/11/20 documented as of this encounter
--- OUTSIDE RECORDS SUMMARY | 2024-03-19 13:32 | XMS_ITS | Encounter Summary ---
Author Organization Healthcare Address [address] [place] [address] Care Team Providers Care Power Line Lineman Name Role Phone Unavailable Primary Care Provider Unavailabl e Encounter Details Date Type Department Care Team (Late st Contact Info) Description 05/29/2015 [facility] Vitals Encounter [facility] OUTPATIENT CONVERSIONS [address] [place] [address] ProviderThomas MD [address] [place] [id number] Social History Tobacco Use Types Packs/Day [...] Concentration - - Weight 102 kg (225 lb) 05/29/2015 8:55 AM EST Height 171.5 cm (5' 7.5 ) 05/29/2015 8:55 AM EST Body Mass Index 34.72 05/29/2015 8:55 AM EST documented in this encounter Plan of Treatment Not on file documented as of this encounter Visit Diagnoses Not on filedocumented in this encounter
[2024-03-19 14:36] VITALS: BMI 34.8
== END 2024-03-19 23:59 | disposition home or self-care (01) ==
LOC: DIETICIAN 13:28
PROVIDERS: PCP Family Medicine; Visit Provider Internal Medicine Gastroenterology
DX: E74.31 Sucrase-isomaltase deficiency (principal)
CPT/HCPCS: 97802